=== PATIENT | female | born 1945 | race Caucasian/White ===

== ENCOUNTER 2018-06-15 09:09 | Outpatient (CLI) | payer OTHER, SELFPAY ==
[2018-06-15] VITALS (8 sets, daily range): BP systolic 112–148; BP diastolic 51–76; PULSE 52–74; RESP 16–22; TEMP 36.8; O2SAT 97–99
--- NOTE | 2018-06-15 09:11 | DI.RAD.S_ITS ---
PROCEDURE: PAIN SI JOINT INJECTION INDICATIONS: lumbar fusion with sacral dysfunction FINDINGS: Fluoroscopic spot filming was performed to verify placement of spinal needles of the SI joint as labeled on the films. Appropriate location(s) of the needle tip(s) was confirmed by injection of iodinated contrast. IMPRESSION: Fluoroscopy guidance for needle placement. Dictated by: Jess Michael M.D. on 06/15/2018 at 14:25 Approved by: Jess Michael M.D. on 06/15/2018 at 14:26
--- NOTE | 2018-06-15 10:39 | P.PCN_ITS ---
Procedures Date/Time Date of procedure: 06/15/18 Time of procedure: 10:39 General Procedure description: PREOP Dx: Sacroiliac joint pain/DJD POST OP DX: Sacroiliac Joint Pain/DJD Procedures: Fluoroscopic guided contrast controlled left sacroiliac joint injection Physician: Rip Ramsey D.O. Indications: Patient is referred by for treatment of left sacroiliac joint DJD Description of procedure Fluoroscopic guided, contrast controlled left sacroiliac joint injection Following denial of allergies and review of potential side effects and complications, including, but not necessarily limited to, infection, allergic reaction, local tissue breakdown, temporary as well as permanent nerve injury, paralysis, stroke and possible , the patient indicated that they understood and agreed to proceed. An informed consent was signed by the patient , witnessed by a nurse, and placed in the patient's chart. Additionally, other treatment options including modalities, medications, and physical therapy were reviewed with the patient. Per the patient request, IV conscious sedation was administered via 3mg of Versed to patient comfort. The patient's vital signs were monitored throughout the procedure by both the nurse and the position without significant fluctuation. The patient remained conversant throughout the procedure. In the prone position following sterile prep and drape of the pelvic region, the hyper lucency on in the inferior aspect of the left sacroiliac joint was identified fluoroscopically the skin was anesthetized be a 25 gauge 1 eventual with approximately 2 cc of 1% lidocaine solution. At this point, a 22 gauge 3 in spinal needle was atraumatically introduced and advanced under fluoroscopic guidance into the inferior aspect of the left sacroiliac joint. Following negative aspiration, approximately 0.3 cc of Isovue-300 was injected confirming intra-articular placement without vascular uptake. Radiographic data, including multiple fluoroscopic views of the pelvis, reveals a spinal needle in the left sacroiliac joint hyper loosen zone. Subsequent view show flow contrast tear superiorly and inferiorly within the joint capsule without vascular intrathecal uptake. At this point a total of 1 cc of 0.5% Marcaine was combined with 1 cc of 6 mg of betamethasone was injected without incident. The patient tolerated the procedure well without signs or symptoms of complications prior to transfer to the recovery area for further monitoring. The patient was then transferred to the recovery area and observed for an appropriate time after the injection. The patient reverted a vas score of 7 prior to the procedure and postprocedure vas of 1. Total fluoroscopy time: 22.7 sec Total conscious sedation time: 24 min Postop instructions The patient was provided with a pain like to continue to record the patient's response to the target specific procedure prior to the patient's follow-up visit with the referring physician. Additionally, specific post injection care instructions and a contact number to our office were provided if concerns arise regarding the possible complications associated with procedure are suspected. Rip Ramsey D.O. Complications: none
[2018-06-15] MEDS: IOPAMIDOL 15 ML VIAL 3 ML INJ (11:30)
[2018-06-15] MEDS: BUPIVACAINE 0.5% (PF) 30 ML VIAL INJ (11:30)
[2018-06-15] MEDS: BETAMETHASONE 30 MG/5 ML MDV 12 MG INJ (11:30)
[2018-06-15] MEDS: MIDAZOLAM 5 MG/5 ML VIAL IV (12:17)
== END 2018-06-15 12:05 | disposition home or self-care (01) ==
PROVIDERS: PCP Physician Assistant; Visit Provider Physical Medicine & Rehabilitation
DX: M48.061 Spinal stenosis, lumbar region without neurogenic claudication (principal); M51.36 Other intervertebral disc degeneration, lumbar region; M96.1 Postlaminectomy syndrome, not elsewhere classified
CPT/HCPCS: 27096; 99152; J0702; J2250

== ENCOUNTER 2019-09-28 05:50 | Inpatient (IN) | payer MEDICARE, OTHER, SELFPAY ==
[2019-09-14 09:27] VITALS: BMI 42.6
[2019-09-28] VITALS (18 sets, daily range): BP systolic 84–131; BP diastolic 44–73; PULSE 51–83; RESP 12–17; TEMP 36.1–37.1; O2SAT 91–100; BMI 43.8; BMI 44.1
--- NOTE | 2019-09-28 06:00 | DI.RAD.S_ITS ---
PROCEDURE: XR KNEE LT 1TO2V INDICATIONS: post op films TECHNIQUE: 2 views of the knee were acquired. COMPARISON: [facility] Vernancy Bailon, CR, XR KNEE ARTHRITIC SERIES LT, 03/02/2019, 13:14. [facility] [place], CR, XR KNEE ARTHRITIC SERIES LT, 01/14/2018, 13:36. FINDINGS: Bones: Interval placement of a left total knee arthroplasty with hardware in expected alignment. No periprosthetic fracture is identified. Well-corticated ossific fragments project along the medial aspect of the left medial femoral condyle, similar to comparison exam and consistent with degenerative change. Soft tissues: There is diffuse anterior left knee soft tissue edema and soft tissue emphysema with anterior knee surgical radha, consistent with postsurgical change. No radiopaque foreign bodies are identified. IMPRESSION: Interval placement of a left total knee arthroplasty in expected alignment and with adjacent soft tissue postsurgical changes. Dictated by: Kota Day M.D. on 09/28/2019 at 13:39 Approved by: Kota Day M.D. on 09/28/2019 at 13:43
--- NOTE | 2019-09-28 07:20 | PM.PREOP ---
Pre-operative Note Interval Note History & Physical reviewed/Exam performed by Physician: Yes Changes to H&P: No
[2019-09-28] MEDS: ACETAMINOPHEN 325 MG TABLET 975 MG PO ×3 (07:24→21:10)
[2019-09-28] MEDS: PREGABALIN 75 MG CAPSULE PO (07:24)
[2019-09-28] MEDS: LACTATED RINGERS 1,000 ML 42 ML IV (07:25)
--- NOTE | 2019-09-28 07:33 | PM.OP.1 ---
Operative Date/Time/Diagnoses Date of procedure: 09/28/19 Time of procedure: 09:58 Pre-op diagnosis: Severe left knee osteoarthritis Post-op diagnosis: same Procedure & Clinicians Procedure: Left total knee arthroplasty Same procedure as scheduled: Yes Indications: The patient presents today for total knee arthroplasty after failure of conservative treatment. The nature of the procedure including the risks and benefits, alternatives, postoperative course and expected outcome were discussed and all questions answered. Consent was obtained. Operative site confirmed and marked. Surgeon: Bill Rios Court Officer: Nils Telles Anesthesia Type: General, Spinal and Local Operative Notes Findings: The patient had severe knee osteoarthritis with severe varus alignment and a large number of osteophytes extending off the patella laterally. A +2 femoral cut was made. The anterior femoral cut was quite long with a slight notch. Full extension and excellent medial lateral balance throughout motion was obtained with routine medial varus knee releases and osteophyte removal. Patellar tracking was excellent. Closure Type: primary Specimen(s): none sent Prosthetic devices, grafts, tissues, transplants, or devices: Bright and Nephbrissa Wise BCS: [xx] femoral component, [xx] tibial component, [xx] mm BCS polyethylene tray and [xx] mm round patella Applied: implant(s) Estimated Blood Loss (mL): 10 Blood products transfused: none Tourniquet time (min): 74 Procedure in detail: The patient was taken to the operative suite and placed under general and spinal anesthesia. The patient was given prophylactic antibiotics prior to surgery. The patient was also given tranexamic acid, 1 g, just prior to surgery for postoperative hemostasis. The lateral knee was prepped and the joint injected with 20 mL of 1% Lidocaine with epinephrine. The knee was then prepped and draped in usual sterile fashion. The leg was exsanguinated with an Esmarch dressing and the tourniquet raised to 250 torr. A 15 cm anterior incision was made. Next a medial trivector arthrotomy was made. The extensor mechanism was marked to ensure accurate repair. Initial exposing dissection was carried out medially and laterally. The knee was then extended and the patellar thickness was measured and a cut made removing approximately 7-8 mm of bone. The patella was then sized and drilled. Some excess lateral bone was excised and the patellofemoral ligament released. The knee was then flexed and the intramedullary femoral guide yuli placed. The distal femoral cut was made in 6 ? of valgus at the +2 position. The femoral size was measured and the appropriate cutting block was then placed and the anterior, posterior and chamfer cuts made. The anterior femoral cut was very long with just a slight notch which was smoothed. The intramedullary tibial alignment yuli was then placed. The guide was set to remove approximately 10 mm from the less affected lateral side. The proximal tibial cut was then made with an oscillating saw. All meniscus and bony debris was then removed. Posterior femoral osteophytes removed with a curved osteotome. Flexion extension gaps were checked. No specific balancing was required other than routine exposure and removal of osteophytes for varus knee. The soft tissues were then injected with a combination of 20 mL of half percent Marcaine with epinephrine and 20 mL of Exparel. The trial components were then placed. The knee went into full extension and flexion beyond 120?. There was excellent medial-lateral balance throughout motion. Patellar tracking was excellent. The trial components were removed and the knee was cleansed with Pulsavac irrigation and dried. The final components were cemented with high viscosity vacuum mixed bone cement with antibiotics. The joint was filled with a dilute Betadine solution. The knee was held in extension and the patellar clamped until the cement was fully cured. The knee was then irrigated. The extensor mechanism was closed with 5 interrupted #1 Vicryl sutures and a running Quill suture at 90 degrees of flexion. The joint was then injected with a combination of 1 g of tranexamic acid and 20 mL of quarter percent Marcaine with epinephrine. The subcutaneous tissue was closed with 2 0 Vicryl. The skin was closed with radha and surgical adhesive. An Aquacel dressing and Jaswant wrap were then applied. The patient tolerated the procedure well and was returned to recovery room in good condition. Complications: none Post-operative Condition: stable Disposition: PACU Plan for aftercare: [facility] protocol for total knee arthroplasty. The patient will require discharge to residential facility from the hospital as she has no help at home.
[2019-09-28] MEDS: CLINDAMYCIN 600 MG/50 ML PIGGYBACK 50 MG IV (07:58)
[2019-09-28] MEDS: LIDOCAINE 1% W/EPI 20 ML INJ (08:20)
[2019-09-28] MEDS: TRANEXAMIC ACID 1,000 MG VIAL 1000 MG INJ (08:22)
--- NOTE | 2019-09-28 08:40 | SUR.OPER ---
Supine on padded OR bed. Pillow under head, arms secured on padded armboards <90 degree abduction. Safety belt across torso. Non-operative leg secured with tape over blanket over lower leg. Operative leg secured in DeMayo/Gregg positioner. Foam padded brace at thigh of operative leg.
[2019-09-28] MEDS: BUPIVACAINE 0.25% W/ EPI (PF) 20 ML, TRANEXAMIC ACID 1,000 MG, SODIUM CHLORIDE 0.9% 10 ML INJ (08:50)
[2019-09-28] MEDS: BUPIVACAINE 0.25% W/ EPI (PF) 40 ML, BUPIVACAINE LIPOSOME 266 MG, SODIUM CHLORIDE 0.9% ... INJ (08:50)
[2019-09-28] MEDS: SODIUM CHLORIDE IRRIG SOLUTION 250 ML, POVIDONE-IODINE SPONGE STICKS 1 APPLIC IRR (08:55)
--- NOTE | 2019-09-28 10:56 | SUR.PHASEI ---
Phase I post op note: Patient arrive to PACU at 1008 via inpatient bed. Sedated with oral airway in place. Respirations regular and unlabored. O2 sats 91-93% on RA. O2 @ 4L/PATROL CAPTAIN applied with good results. X ray taken at 1020 per orders. Patient arrousable at 1025 and oral airway discontinued. Respirations regular and unlabored and VSS. Denied any pain or discomfort. Dermatome level at L1. Tolerating PO ice chips without nausea. Dozes off intermittently. Easily arousable by voice. Telephone report called to IP Acute Care RN. Stable for transfer to floor care.
--- NOTE | 2019-09-28 11:33 | PC.NURSE ---
1115 Pt arrived to room 217 via bed from PACU. Pt A&Ox3. aquacel/ zully wrap to the L Knee. Pt LLE straight and on pillow. No bend in the knee for now per Ariana, PROMOTIONS INTERN./ orders. Spouse at bedside. Pt denies pain, able to move feet, pedal pulses palpable. VS wnl. 1135 Pt taking in jello & sips of water. IVF infusing now. Pt states she last voided at 0530 am. Pt states no feeling of need to void at this time.
[2019-09-28] MEDS: LACTATED RINGERS 1,000 ML 125 ML IV ×2 (11:49→21:20)
[2019-09-28] MEDS: ASPIRIN EC 81 MG TABLET PO ×2 (12:12→21:10)
[2019-09-28] MEDS: LOSARTAN 50 MG TABLET PO (12:12)
[2019-09-28] MEDS: CELECOXIB 100 MG CAPSULE PO ×2 (12:12→21:11)
[2019-09-28] MEDS: glipiZIDE 5 MG TABLET PO ×2 (12:13→21:11)
[2019-09-28] MEDS: PANTOPRAZOLE 20 MG TABLET PO (12:13)
--- NOTE | 2019-09-28 13:32 | PC.NURSE ---
Bladder scan was done at approximately 13:00. Primary RN followed PRN order for straight catheter. Using sterile technique patient was straight cath'd and there was 475ml of clear, yellow, odorless urine. Patient tolerated the procedure well with no complaints of pain or discomfort.
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
[2019-09-28] MEDS: hydroCHLOROthiazide 12.5 MG CAPSULE PO (14:49)
[2019-09-28] MEDS: ROPINIROLE 1 MG TABLET PO (14:49)
[2019-09-28] MEDS: OXYCODONE IR 5 MG TABLET PO (14:50)
[2019-09-28] MEDS: AMLODIPINE 5 MG TABLET PO (16:12)
[2019-09-28] MEDS: SIMVASTATIN 10 MG TABLET PO (17:04)
[2019-09-28] MEDS: CLINDAMYCIN 900 MG/50 ML PIGGYBACK 50 MG IV ×2 (17:04→23:41)
--- NOTE | 2019-09-28 18:13 | PC.NURSE ---
Addendum entered by Mary Ann Nava R.N. 09/28/19 22:24: Uneventful evening. Denies discomfort. Dsg DCI HS CBG = 85 Stable post op course. Call light w/in reach, bed alarm on for pt safety. Continue w/plan of care. Original Note: Pt watchign TV. Med earlier for discomfort w/ relief. AC CBG = 89, not insulin required. Dgs to Left knee Jaswant/aquacell CDI. Stable post op course. Call light w/in reach, bed alarm on for pt safety.
--- NOTE | 2019-09-28 18:47 | CM.DANOTE ---
Addendum entered by JOSR Muro 09/30/19 14:56: Correction: [facility] Merrill P# [phone] Original Note: DCP assessment: EMR Reviewed: Patient is a 74 yr old female who was admitted for Lt TKA preformed by Dr. Rios. Patients PCP is Dr. Joshua with [facility] in [facility], CM met with patient at the bedside and explained CM/RN role. Patient was alert and oriented x3 at time of CM visit. Patient is I at base line with all ADL's. DME: patient has a FWW and Cane. patients DPOA is son Emil [phone]. Patient lives with her who is disabled and is currently recovering from a surgery as well. Patient stated concerns with D/C home with no one who can help her with her recovery. Patient stated she wanted to go to SNF at D/C. Patient currently lives in [facility] near [facility]. Dr. Rios has recommended SNF (in H &P and in pre-op note) at discharge due to the fact that patient does not have anyone to help patient at home. Patient would like to go to a facility in [place] or [facility]. Patient stated her family can transport her to the facility in [place] at D/C. CM contacted [facility] at [phone] and left a message for them to review patient and sent Clinicals to their fax# [phone]. EMBER also contacted [facility] in [place] [phone] LM for them to review patient and sent Clinicals to their fax # [phone]. PASRR done. Physical therapy Evaluation pending. Insurance: 1st: Medicare 2nd: [employer] Plan: [facility]. Patient to be transported by family to facility at d/c. CM department to follow patient and follow up with SNF options to determine placement. CM will also F/U with patient to get name of family member planning on transporting patient to [facility]. Susan Bright RN. Discharge Planning/Care Management CM Discharge Assessment Start: 09/28/19 18:24 Freq: Status: Active Protocol: Document 09/28/19 18:38 HS (Rec: 09/28/19 18:47 HS [id number]) Discharge Planning Assessment Assigned Out And Out Cigar Maker Hand Susan Bright RN DPOA/Assigned Designee Name Emil Greenfield (Son) Contact Information [phone] Advance Directives? Yes Advance Directives on File No History Provided By Patient Has Patient been admitted in last 30 No days? Prior Living Arrangements House Household Members spouse Type of transporation used prior to Drives own vehicle admit Independent with ADL's Yes Is patient alert and oriented? Yes Caregiver for Another Yes: DME Already Rented / Owned Bath Bench,FWW / Walker,Cane Patient/Family Preference Assisted Facility Comment Patient lives in [facility] [place] [facility] Discharge Plan Assisted Facility Transportation Arrangement Patients family will be transporting her [facility] Referrals Initiated Assisted Additional Comment Contacted [facility] If patient plan is SNF: Has PASSR been No completed? Has Agency SNF been contacted Yes Comment [facility] Whiteboard Updated in Patient Room with Yes name and ext. # of Out And Out Cigar Maker Hand Review Status In Process Next Review Type Continued Stay Review Pre-Anesthesia Assessment Start: 09/14/19 09:27 Freq: Status: Active Protocol: Document 09/14/19 09:27 CAB (Rec: 09/14/19 10:50 CAB [id number]) Pre-Anesthesia Assessment Patient Also Known As (SATHYA Kidd Patient Information Reviewed Via Phone Assessment Assessment Completed With Patient Comment No labs/EKG available from surgeon at time of assessment Primary Care Provider Benito Seen Specialist in Last 12 Months Yes Specialist Seen Orthopedist Primary Language Estonian First Assistant Manager Required No Height 147.32 cm Weight 92.533 kg Body Mass Index (BMI) 42.6 Hearing Ability Normal Visual Assist Glasses Dentition Type Dental Implants Barriers to Learning None Other Aids No Hx Anesthesia Reactions Yes: PONV Hx Family Anesthesia Reaction No Hx Malignant Hyperthermia No Hx Blood Transfusions No Anesthesia Review Requested No Pharmacoepidemiologist Yes: Pt wants to go to a SNF in [facility] alcohol intake never Smoking Status Never smoker Substance Use Type does not use Pain Present Pain Reported Musculoskeletal Symptoms Abnormal Gait,Difficulty Walking,Joint Pain,Numbness, Tingling History of Falling (Recent or History of No ) Patient is completely paralyzed or No completely immobile Prosthesis or Orthotic Device Cane,Front Wheel Walker, Wheelchair Mental Status Oriented to own ability Is patient on oxygen? No Does patient have ARENAS/SOB No Hx Sleep Apnea No Currently Taking a Beta Dmitriy No Can You Climb a Flight of Stairs Without Yes SOB Hx Chest Pain No Hx SOB No Hx Syncope or Dizziness No Anti-Coagulant Therapy No Has a Mechanical Test Technician No Cardiac Testing No Hx Pacemaker/ICD No Pacemaker Rep Required? No Cardiac Clearance Received Not Applicable Diet Type At Home Regular dysphagia No Urinary Catheter Present No Hx Urinary Self Catheterization No Diabetes Yes HgbA1C 5.9 Date 08/27/19 Patient No Lactating No Hx Drug Resistant Organism No Presence of External or Internal Medical Yes: Bilat eye lens, lumbar/ Devices cervical, right knee Have you traveled outside the [facility] in the last 30 days? Marital Status Lives With spouse Prior Living Arrangements House Number of Floors (Floors) One Floor Does the Patient Have Assistance After No: just had shoulder Surgery surgery, unable to assist Patient Discharge Plan Description Assisted Facility/Rehab Comment Pt wants to go to a SNF in [facility] Feels Safe in Current Environment Yes Been Physically Hurt or Threatened By a No Person in Current Environment Do you have thoughts of harming yourself None or others? Are you currently considering suicide? No Do you have a plan to hurt yourself or No Plan others? Do You Have Any Spiritual Beliefs That No May Affect Your HC Choices? Do You Have Any Cultural Practices That No May Affect Your HC Choices? Who Can We Speak to About Patient's Care Family, friends Identifying Code for Release of Patient Declines to issue Information Health Care Proxy/Next of Kin Emil Montejoson) Health Care Proxy Emergency Contact Name Emil Montejoson) Emergency Contact Advance Directives? Yes Advance Directives on File No Requested Patient Bring Advanced Yes Directives DOS Power of Database Administrator Yes Power of Database Administrator Name Emil nina) Power of Database Administrator PAC Instructions Do not shave/clip surgical site,Durable medical equipment ,Medications to take/avoid, Nasal antibiotic,No ETOH/ petroleum product on skin DOS, NPO,Post-op transportation,Pre -op antibiotic,Sturdy shoes/ comfortable clothes,Do not bring valuables and remove jewelry
[2019-09-28] MEDS: ROPINIROLE 1 MG TABLET 2 MG PO (19:15)
[2019-09-28] MEDS: CITALOPRAM 20 MG TABLET 40 MG PO (21:11)
[2019-09-28] MEDS: OXYCODONE IR 5 MG TABLET 10 MG PO (23:42)
[2019-09-29] VITALS (10 sets, daily range): BP systolic 105–153; BP diastolic 40–72; PULSE 59–75; RESP 16–18; TEMP 36.6–37.4; O2SAT 91–95
[2019-09-29] MEDS: OXYCODONE IR 5 MG TABLET 10 MG PO ×4 (03:11→19:28)
--- NOTE | 2019-09-29 03:42 | PC.NURSE ---
Shift note: Received pt from evening shift. Pt is AxOx3 and can make needs known. VSS and on RA, lungs clear, HRR to auscultation. Aquacell with zully wrap to LLE, CDI, Pulse weak to palpation, cap refil <2 secs, pt reports limited sensation to extremity but was the same pre-op d/t nerve damage. Pt has had only 125ml urine output since faustin removal, LINOLEUM PRINTER took pt to toilet and had void of 50ml. Bladder scan estimated volume of 198ml which does not meet order threshold. Will continue to encourage pt to ambulate to void. Pt is a moderate fall risk, call light in reach, bed alarm on and functioning.
[2019-09-29 06:24] LABS: Hematocrit 29.6 % (36-46); Hemoglobin 10.2 g/dL (12.0-16.0)
[2019-09-29] MEDS: ACETAMINOPHEN 325 MG TABLET 975 MG PO ×3 (08:07→20:54)
[2019-09-29] MEDS: ASPIRIN EC 81 MG TABLET PO ×2 (08:07→20:55)
[2019-09-29] MEDS: glipiZIDE 5 MG TABLET PO ×2 (08:08→20:56)
[2019-09-29] MEDS: LOSARTAN 50 MG TABLET PO (08:09)
[2019-09-29] MEDS: AMLODIPINE 5 MG TABLET PO (08:09)
[2019-09-29] MEDS: PANTOPRAZOLE 20 MG TABLET PO (08:09)
[2019-09-29] MEDS: CELECOXIB 100 MG CAPSULE PO ×2 (08:11→20:55)
[2019-09-29] MEDS: hydroCHLOROthiazide 12.5 MG CAPSULE PO (08:11)
[2019-09-29] MEDS: SODIUM CHLORIDE 0.9% FLUSH 10 ML IV ×2 (08:12→20:56)
--- NOTE | 2019-09-29 09:40 | P.PN_ITS ---
Subjective Subjective Date Patient Seen: 09/29/19 Time Patient Seen: 09:40 Interval history: Post op day 1 s/p left total knee arthroplasty with Dr. Rios. Patient complains of significant pain starting last night (located in incision site, increased from 3/10 to 7/10). Pain is controlled on oxycodone 10, tylenol, celebrex. Patient states her current pain is 8/10. 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 Patient has trouble voiding ; 50 mL in A M, bladder scan 198 mL. Patient made poor progress with PT yesterday secondary to pain. Patient admits to loss of sensation below the knee in left leg, prior to surgery.Patient has no caregiver at home and plans on SNF with transport by family. Patient denies fever, chills, chest pain, shortness of breath, nausea, vomiting. Exam Vital Signs (past 8 hours): - 09/29/19 03:15 09/29/19 07:45 09/29/19 08:15 Temperature 98.6 F 99.3 F Pulse Rate 59 L 59 L Respiratory Rate 16 16 Blood Pressure 105/44 L 107/52 L 115/49 L Pulse Oximetry 91 92 Oxygen Delivery Method Room Air Oxygen Flow Rate 0 Narrative Exam Narrative: 74 year old female is lying comfortably in bed, in no apparent distress. A&Ox3. Dressing is CDI, zully wrap in place. SCDs in place. Sensory function grossly intact to light touch in LE b/l except below the knee on L LE. Patient actively plantar flex/dorsiflex LE bl. Dorsalis pedis 2+ bl. Capillary refill <2seconds LE bl. Calves warm, compressible, soft, nttp. Objective Labs Result Diagrams: 09/29/19 05:55 Labs: Laboratory Results - last 24 hr 09/29/19 05:55 Hgb 10.2 L Hct 29.6 L Assessment & Plan Post-op Postoperative Procedures: Procedures Operation Date: 09/28/19 07:45 Actual Procedures Side Surgeon p Total Knee Arthroplasty Left Bill Rios MD Postoperative status: urinary retention and marginal pain control Postoperative plan: routine post-op care and ambulate Postoperative plan narrative: s/p L TKA with urinary retention and marginal pain control Urinary retention - continue to monitor and prompt, bladder scan >400 ml = straight cath Pain control - continue current pain management, if next PT session goes poorly will change medication orders VTE prophylaxis - SCDs, asa 81 mg bid Weight bearing as tolerated on L LE Discharge to SNF likely, when criteria is met Time Spent With Patient Time with patient: less than 15 minutes Quality VTE Deep Vein Thrombosis/Pulmonary Embolism Present on Admission: No
[2019-09-29] MEDS: HYDROMORPHONE 2 MG TABLET PO (10:06)
--- NOTE | 2019-09-29 11:51 | CM.DPC ---
DCP SNF Planning: SW called [facility] in [place] and spoke with admissions who states they have not received the previous faxed clinicals and requests SW fax to her direct office at #[phone] and her admissions cell # [phone]. SW refaxed clinicals to review and discussed pt may be stable for d/c over the weekend and she had concerns they might not be able to accept admission over the weekend and will check with her DNS and also requested RN notes faxed to review. J[facility]IO CESAR [facility] [place] [phone] and confirmed they received clinicals and are currently reviewing and would like to know why pt had surg here in [facility] and if she has Ortho f/u set up there in [place]. SW met bedside with pt and spouse and explained role and updated on above and pt confirms that she had surgery here as she has previous experience with Dr. Mercedes and Blanca as they used to live in [place] and they really like [facility]. Pt has not set up Ortho f/u outside of [facility] but would be agreeable with Ortho f/u in [place] if possible or would be willing to come back here for follow up appointment if needed. JULIO CESAR called [facility] [place] back and provided update and [facility] will determine if they can help set pt up with Ortho f/u there near their facility and will continue to review. Plan: SW to follow closely for final review from [facility] and [facility] in [place] to determine if either can accept and confirm they can accept pt over the weekend if she is stable for discharge. PASRR previously completed. JOSR Alvarez
--- NOTE | 2019-09-29 12:43 | PT.IPTN ---
Addendum entered and electronically signed by Anabella Lang PTA 09/29/19 12:44: PT completed treatment at 1148 am, error time stamp, and up dated communication board with assist with transfers. Original Note: Current Diagnoses Bilateral primary osteoarthritis of knee (09/28/19) Surgery Performed Operation Date: 09/28/19 07:45 Actual Procedures p Total Knee Arthroplasty(Left) - Bill Rios MD Physical Therapy Treatment Note M2 PT-IP Current Condition Start: 09/28/19 15:55 Freq: NEEDED Status: Active Protocol: Document 09/28/19 14:22 AB (Rec: 09/28/19 16:15 AB [id number]) Physical Therapy Current Condition Current Condition Evaluation Date 09/28/19 Treatment Diagnosis s/o L TKA; difficulty in walking Onset Date 09/28/19 Weight Bearing Status Weight Bearing Status Weight Bear as Tolerated M3 PT-IP Subjective Start: 09/28/19 15:55 Freq: NEEDED Status: Active Protocol: Document 09/29/19 11:48 SP (Rec: 09/29/19 12:40 SP [id number]) Subjective Physical Therapy Visit Type Type Treatment Note Visit Start Time 11:19 Visit Stop Time 11:48 Total Visit Minutes 29 Number of ANGLE SHEARER Visits 1 Physical Therapy Visit Comments Patient Comments Pt agreeable to work with PT. Patient Goals Want to get up and possibly sit in chair. Therapy Pain Assessment Pain When Pain Assessed At Rest Pain Present Pain Present Pain Reported Location Left Knee Intensity 8 Scale Used Numeric (1 - 10) Pain Management Techniques Re-positioning,Timing of Activity with Medications M4 PT-IP Mobility and Gait Start: 09/28/19 15:55 Freq: NEEDED Status: Active Protocol: Document 09/29/19 11:48 SP (Rec: 09/29/19 12:40 SP [id number]) PT-Bed Mobility Assessment Rolling Type of Rolling Roll to Left Supine to Sit Supine to Sit Moderate Assistance,1 Person Assistance,Head of Bed Elevated,Bedrails Scooting Scooting to Edge of Bed Minimal Assistance PT-Transfer Assessment Sit to and From Stand Sit to and from Stand Maximum Assistance,1 Person Assistance,Use of Upper Extremities Equipment Transfer Assistive Device Gait Belt,Front Wheeled Walker Orthotic/Prosthetic Devices or Brace: No Transfers Transfer Destination Chair Transfer Technique Stand Step Pivot Transfer Ability Level of Assist Maximum Assistance,1 Person Assistance,Use of Upper Extremities Comments Mobility Comments Pt stated L leg has chronic numbness in LLE due to back problems. Pt was able to complete supine to sitting EOB with Mod support to right trunk, cued for hand placement with HOB elevated, Min A for scooting to EOB, Max A to stand from EOB using heavy WB through BUE on FWW. Pt was able to pivot 4 steps EOB to chair with Max A and Min cuing for BLE pivoting position and UE WB through fWW for completion. LLE little unsteady, cued for quad activation to decrease risk for buckling. Encouraged WB BUE through hands and not forearms on FWW with upright posture. Gait Assessment Gait Gait Assistance Required: Maximum Assistance,1 Person Assist Distance (Feet) 3 Able to Maintain Weight Bearing Status Yes During Gait Assistive Devices Assistive Device Front Wheeled Walker Orthotic/Prosthetic Devices or Brace: No Gait Deviations General Gait Pattern Antalgic,Decreased Stride Length,Decreased Feet Clearance,Flexed Trunk,Step-to Gait Factors Limiting Gait Function Factors Limiting Gait Function Decreased Activity Tolerance, Decreased Sensation,Decreased Strength,Limited Range of Motion,Pain,Poor Balance,Poor Safety Awareness Comments Gait Comments Decrease WB tolerance on LLE, heavy BUE WB on fWW bed to chair. PT-Balance Assessment Sitting Balance and Reactions Static Sitting Balance Ability Good Dynamic Sitting Balance Ability Good Standing Balance and Reactions Static Standing Balance Ability Poor Dynamic Standing Balance Ability Poor Device Used FWW M5 PT-IP Objective Assessments Start: 09/28/19 15:55 Freq: NEEDED Status: Active Protocol: Document 09/28/19 14:22 AB (Rec: 09/28/19 16:15 AB [id number]) Orientation Orientation/Cognition Level of Alertness Alert Orientation Name,Age,Place,Situation Safety Awareness Decreased Safety Awareness Memory Description No Deficits Noted Gross Range of Motion Lower Extremity ROM Impairments L knee flexion: ~ 60 deg Strength Lower Extremity Strength Assessment Left Impaired Knee 2+/5 Sensation Assessment Sensation Gross Sensation Left LE Impaired Light Touch Absent Proprioception (Position) Impaired Sensation Description Numbness Comments Sensation Comments pt stated that she has to look at her LLE to see where she has positioned it Muscle Tone Muscle Tone WNL Yes M6 PT-IP Treatment Start: 09/28/19 15:55 Freq: NEEDED Status: Active Protocol: Document 09/29/19 11:48 SP (Rec: 09/29/19 12:40 SP [id number]) Physical Therapy Treatment Exercises Exercises Ankle Pumps,Seated Knee Flexion/Extension Education Education Provided Precautions,Weight Bearing Status,Post-Op Packet,Safety M7 PT-IP Assessment and Plan Start: 09/28/19 15:55 Freq: NEEDED Status: Active Protocol: Document 09/29/19 11:48 SP (Rec: 09/29/19 12:40 SP [id number]) PT Summary Assessment and Plan Potential Rehabilitation Potential Good Status of Condition at Evaluation Evolving Summary Impairments Pain,ROM,Strength,Balance, Coordination,Sensation,Tone, Bed Mobility,Transfers,Gait, Activity Tolerance Assessment Summary pt requiring mod A with bed mobility and Max A x1 to ambulate with BUE heavy WB on FWW step to gait bed to chair. Pt was up in chair with call light next to her. On 1L O2, low to mid 90% sat during mobility. Pt did become nauseous once up in chair but improved post cues for breathing and water consumption. Pt will require SNF rehab to improve strength and mobility at this time. Goals Bed Mobility Goal Independent Transfer Goal Contact Guard Assistance,Front Wheeled Walker Gait Goal Contact Guard Assistance,Front Wheel Walker Gait Distance 75 Days to Meet Goals 5 Frequency of Treatment Frequency Of Treatment Twice a Day Treatment Plan Physical Therapy Treatment Plan Bed Mobility Training,Transfer Training,Gait Training, Therapeutic Exercise,Balance Retraining,Post Op Education, Discharge Planning,Hot or Cold Pack,Neuromuscular Re-ed, Coordination Retraining,Manual Therapy Other Recommendations and Next Treatment transfers, ambulation Focus Recommendations To Nursing Amount of Assist Needed 3 or More Person Assist Discharge Recommendations PT Discharge Recommendations SNF Rehab
--- NOTE | 2019-09-29 14:41 | PC.NURSE ---
Ortho: Decreased bp today and norvasc held, PA-C aware. O2 sats found to be low this am, 86-87% even when enc to deep breath, use of IS to 1000. O2 applied at 2LNC, PA-C aware. See new orders. RT notified as well about decreased O2 sat. Denies any pain when taking a deep breath. Not a smoker, no hx of lung disease. No redness or swelling of the lower legs is present. Did another trial of RA at lunch and pt found to drop to 85-86% again, increased to 88% with deep breaths and IS use. O2 was reapplied. Other issue is voiding. Doesn't always get up to the commode, instead will use the bedpan. Bladder scanned for 229 and 342mls. Discussed getting up to bsc to void as being the better option. Still doesn't meet criteria for a faustin yet. Pt verb understanding. ortho stacy no concerns, ppp, feet =/warm, brisk cap refill. Dressings intact. Pain in control at present. Cont w/poc.
--- NOTE | 2019-09-29 15:43 | CM.DPC ---
DCP Cont: [facility] at fax # [phone] as requested. Fax confirmation scanned in. Yolanda Jimenez, [facility]
[2019-09-29] MEDS: ROPINIROLE 1 MG TABLET PO (15:45)
[2019-09-29] MEDS: SIMVASTATIN 10 MG TABLET PO (16:11)
--- NOTE | 2019-09-29 16:46 | PT-IP ANOTE ---
Pt refused, she just transfer to BSC and then chair with RN. Will see in AM.
[2019-09-29] MEDS: ROPINIROLE 1 MG TABLET 2 MG PO (19:27)
[2019-09-29] MEDS: CITALOPRAM 20 MG TABLET 40 MG PO (20:55)
--- NOTE | 2019-09-29 21:12 | PC.NURSE ---
Addendum entered by Amara Samaniego R.N. 09/29/19 23:47: RN in agreement with student nurse documentation. Addendum entered by Amara Samaniego R.N. 09/29/19 22:05: Patient placed on continuous pulse ox. Original Note: Low oxygen intervention P: The student nurse and the nurse assisted the patient to the beside commode. Patient was assisted back to bed after voiding. Patient's oxygen saturation was at 84% while laying in a semi-fowlers position. I: The student nurse elevated the head of bed to high fowlers and instructed patient to use the incentive spirometer. E: Patient's oxygen saturation climbed to 94%. S: Patient was left with head of bed lowered to low semi fowlers, call light in hand, bed low and locked, and high fall risk precautions in place per protocol.
[2019-09-30] VITALS (8 sets, daily range): BP systolic 94–164; BP diastolic 50–73; PULSE 64–79; RESP 16–18; TEMP 36.8–37.1; O2SAT 94–99
[2019-09-30] MEDS: OXYCODONE IR 5 MG TABLET 10 MG PO ×4 (00:54→12:20)
--- NOTE | 2019-09-30 06:16 | PC.NURSE ---
Addendum entered by Ramon Christian R.N. 09/30/19 06:22: 0530: Pt awake and used bedpan. She is having pain in lt knee area and asking if she could have pain medication. Discussed with her the effect of the Oxycodone which was given last, and if it gave her good pain relief. She states that it worked very well. Oxycodone 10mg given at this time for 6/10 pain. Original Note: Nut Grinder Note: 0140: Received pt from Sherry Oshea RN. Pt awake,alert. She is concerned about symtoms she is having when urinating: burning sensation, and urinary frequency, and at times does not know she is urinating. Linen change, madai care given. Placed pt on bedpan to see if she could urinate: urine is clear shakeel, sent to lab pending orders from MD for UAC. Clean brief on. Assisted pt to reposition. Discussed with her the importance of SCDs, ankle waving, and using incentive spirometer. She spoke of going to SNF for rehab due to her not being able to assist her at home because of his shoulder surgery. Pt feeling more calm and attempting to go back to sleep.
[2019-09-30] MEDS: AMLODIPINE 5 MG TABLET PO (09:00)
[2019-09-30] MEDS: ACETAMINOPHEN 325 MG TABLET 975 MG PO ×3 (09:00→20:43)
[2019-09-30] MEDS: PANTOPRAZOLE 20 MG TABLET PO (09:00)
[2019-09-30] MEDS: ASPIRIN EC 81 MG TABLET PO ×2 (09:00→20:43)
[2019-09-30] MEDS: LOSARTAN 50 MG TABLET PO (09:00)
[2019-09-30] MEDS: glipiZIDE 5 MG TABLET PO ×2 (09:00→20:43)
[2019-09-30] MEDS: hydroCHLOROthiazide 12.5 MG CAPSULE PO (09:02)
[2019-09-30] MEDS: SODIUM CHLORIDE 0.9% FLUSH 10 ML IV ×2 (09:02→20:44)
[2019-09-30] MEDS: CELECOXIB 100 MG CAPSULE PO ×2 (09:02→20:44)
--- NOTE | 2019-09-30 10:43 | DI.US.S_ITS ---
PROCEDURE: US PERIPH VENOUS LOW EXTREM LT INDICATIONS: POST-OP PAIN TECHNIQUE: Real-time imaging, as well as color and pulse Doppler interrogation, were performed of the lower extremity deep veins from the inguinal ligament to the popliteal fossa. COMPARISON: None. FINDINGS: The common femoral, femoral and popliteal veins are normally compressible, and free of intraluminal thrombus. Color and pulse Doppler demonstrate normal phasic intraluminal flow. There is normal augmentation response to distal compression maneuver. IMPRESSION: No evidence of left lower extremity deep vein thrombosis. Dictated by: El Preston M.D. on 09/30/2019 at 12:42 Approved by: El Preston M.D. on 09/30/2019 at 12:42
--- NOTE | 2019-09-30 11:17 | P.PN_ITS ---
Subjective Subjective Date Patient Seen: 09/30/19 Time Patient Seen: 11:17 Interval history: post op day 2 s/p LTKA w Dr. Rios. No acute events overnight. Patient complains of pain in L knee with movement. Patient is ambulating poorly with PT. Pain is controlled with oxycodone 10mg and tylenol. Patient complains of pain with urination and urinary incontinence with movement. UA was ordered last night. Hx of UTI 30years ago, denies hx of urinary incontinence. Patient denies shortness of breath, coughing, chest pain, fever, chills, nausea, vomiting Exam Vital Signs (past 8 hours): - 09/30/19 05:00 09/30/19 08:00 09/30/19 08:32 Temperature 98.3 F 98.8 F Pulse Rate 68 78 70 Respiratory Rate 18 17 18 Blood Pressure 164/73 H 146/73 H Pulse Oximetry 99 95 94 Oxygen Delivery Method Nasal Cannula Oxygen Flow Rate 1.5 Narrative Exam Narrative: 74 year old female is lying comfortably in bed, with nasal canula, in no apparent distress. A&Ox3. Dressing is CDI w zully wrap. L calf ttp tense, positive halle's sign. Lungs CTA. Right calf warm, soft, nttp, compressib le. Patient able to actively dorsiflex/plantar flex. Dorsalis pedis 2+. Capillary refill <2seconds LE bl. Sensory function grossly intact to light touch in LE b/l except below the knee on L LE. Objective Labs Result Diagrams: 09/29/19 05:55 Assessment & Plan Post-op Postoperative Procedures: Procedures Operation Date: 09/28/19 07:45 Actual Procedures Side Surgeon p Total Knee Arthroplasty Left Bill Rios MD Postoperative plan narrative: L calf ttp, +homans sign - rule out DVT, ordered Doppler ultrasound Continue current pain control Ambulate with physical therapy Follow UA + Culture - treat as needed Considering slow progress with PT and no support at home, discharge to SNF likely pending medically stable and 3 nights met Time Spent With Patient Time with patient: less than 15 minutes Quality VTE Deep Vein Thrombosis/Pulmonary Embolism Present on Admission: No
--- NOTE | 2019-09-30 11:22 | PT.IPTN ---
Current Diagnoses Bilateral primary osteoarthritis of knee (09/28/19) Surgery Performed Operation Date: 09/28/19 07:45 Actual Procedures p Total Knee Arthroplasty(Left) - Bill Rios MD Physical Therapy Treatment Note M2 PT-IP Current Condition Start: 09/28/19 15:55 Freq: NEEDED Status: Active Protocol: Document 09/28/19 14:22 AB (Rec: 09/28/19 16:15 AB [id number]) Physical Therapy Current Condition Current Condition Evaluation Date 09/28/19 Treatment Diagnosis s/o L TKA; difficulty in walking Onset Date 09/28/19 Weight Bearing Status Weight Bearing Status Weight Bear as Tolerated M3 PT-IP Subjective Start: 09/28/19 15:55 Freq: NEEDED Status: Active Protocol: Document 09/30/19 11:30 GGD (Rec: 09/30/19 12:22 GGD [id number]) Subjective Physical Therapy Visit Type Type Treatment Note Visit Start Time 11:00 Visit Stop Time 11:30 Total Visit Minutes 30 Number of REPLANTING MACHINE CREW Visits 2 Physical Therapy Visit Comments Patient Comments Pt willing to work with therapy. Therapy Pain Assessment Pain When Pain Assessed At Rest Pain Present Pain Present Pain Reported Location Left Knee Intensity 4 Scale Used Numeric (1 - 10) M4 PT-IP Mobility and Gait Start: 09/28/19 15:55 Freq: NEEDED Status: Active Protocol: Document 09/30/19 11:30 GGD (Rec: 09/30/19 12:22 GGD [id number]) PT-Bed Mobility Assessment Supine to Sit Supine to Sit Minimal Assistance,1 Person Assistance,Head of Bed Elevated Scooting Scooting to Edge of Bed Contact Guard Assistance PT-Transfer Assessment Sit to and From Stand Sit to and from Stand Contact Guard Assistance,1 Person Assistance,Use of Upper Extremities Equipment Transfer Assistive Device Gait Belt,Front Wheeled Walker Orthotic/Prosthetic Devices or Brace: No Transfers Transfer Destination Chair Transfer Ability Level of Assist Minimal Assistance,1 Person Assistance,Use of Upper Extremities Gait Assessment Gait Gait Assistance Required: Contact Guard Assist,Minimum Assistance Distance (Feet) 6 Able to Maintain Weight Bearing Status Yes During Gait Assistive Devices Assistive Device Front Wheeled Walker Orthotic/Prosthetic Devices or Brace: No Factors Limiting Gait Function Factors Limiting Gait Function Decreased Activity Tolerance, Decreased Sensation,Decreased Strength,Limited Range of Motion,Pain,Poor Balance,Poor Safety Awareness M5 PT-IP Objective Assessments Start: 09/28/19 15:55 Freq: NEEDED Status: Active Protocol: Document 09/28/19 14:22 AB (Rec: 09/28/19 16:15 AB [id number]) Orientation Orientation/Cognition Level of Alertness Alert Orientation Name,Age,Place,Situation Safety Awareness Decreased Safety Awareness Memory Description No Deficits Noted Gross Range of Motion Lower Extremity ROM Impairments L knee flexion: ~ 60 deg Strength Lower Extremity Strength Assessment Left Impaired Knee 2+/5 Sensation Assessment Sensation Gross Sensation Left LE Impaired Light Touch Absent Proprioception (Position) Impaired Sensation Description Numbness Comments Sensation Comments pt stated that she has to look at her LLE to see where she has positioned it Muscle Tone Muscle Tone WNL Yes M6 PT-IP Treatment Start: 09/28/19 15:55 Freq: NEEDED Status: Active Protocol: Document 09/30/19 11:30 GGD (Rec: 09/30/19 12:22 GGD [id number]) Physical Therapy Treatment Exercises Exercises Ankle Pumps,Quad Sets,Heel Slides,Straight Leg Raises, Seated Knee Flexion/Extension Education Education Provided Precautions,Safety M7 PT-IP Assessment and Plan Start: 09/28/19 15:55 Freq: NEEDED Status: Active Protocol: Document 09/30/19 11:30 GGD (Rec: 09/30/19 12:22 GGD [id number]) PT Summary Assessment and Plan Summary Assessment Summary Pt improving with mobility. She needed less assistance with bed mobility and sit <> stand. She was able to progress gait distance with mod cues. Pt will benefit from SNF to improve functional mobility. Frequency of Treatment Frequency Of Treatment Twice a Day Treatment Plan Physical Therapy Treatment Plan Bed Mobility Training,Transfer Training,Gait Training, Therapeutic Exercise,Balance Retraining,Post Op Education, Discharge Planning,Hot or Cold Pack,Neuromuscular Re-ed, Coordination Retraining,Manual Therapy Recommendations To Nursing Amount of Assist Needed 2 Person Assist Discharge Recommendations PT Discharge Recommendations SNF Rehab
[2019-09-30 11:48] LABS: Bacteria Urine None Seen; RBC Urine None Seen (0-5/HPF)
[2019-09-30 11:51] LABS: Appearance Urine UA CLEAR; Bilirubin Urine UA NEGATIVE (NEGATIVE); Color Urine UA YELLOW; Glucose Urine UA NEGATIVE (Negative); Ketones Urine UA NEGATIVE (NEGATIVE); Leukocyte Esterase Urine UA NEGATIVE (NEGATIVE); Nitrite Urine UA NEGATIVE (Negative); Occult Blood Urine UA NEGATIVE (Negative); Protein Urine UA NEGATIVE (Negative); Specific Gravity Urine UA <=1.005 (1.000-1.035); Urobilinogen Urine UA 0.2 E.U./dL (0.2)
[2019-09-30 12:04] LABS: Culture Indicated Urine Cult Not Indicated; Squamous Epithelial Cell Urine 0-1 /HPF (0-5/HPF); WBC Urine 0-1/HPF (0-5/HPF)
--- NOTE | 2019-09-30 12:31 | PC.NURSE ---
Ortho: Pt reports she is doing better today. having better pain control. Has not needed any dilaudid. UA obtained and sent for urinary urgency and freq. UA was neg and pt given results. She thinks her irritation maybe from when she was straight cathed a couple of days ago. O2 sats better but remain on the lower side, was able to titrate O2 down to 1.5L with sats 92-94%. PA-C aware of same. See orders. No pain with deep breathing and pt is using her IS better today, got to 1250 w/better breath control. Has been up with PT and she feels she is improving in this area as well. Had better leg control and was able to amb a short distance. 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 Pt overall feels her day has been much better then yesterday. No bp issues and did get all of her meds. Has been sitting in the chair for several hours. Cont w/poc.
--- NOTE | 2019-09-30 15:02 | PT.IPTN ---
Current Diagnoses Bilateral primary osteoarthritis of knee (09/28/19) Surgery Performed Operation Date: 09/28/19 07:45 Actual Procedures p Total Knee Arthroplasty(Left) - Bill Rios MD Physical Therapy Treatment Note M2 PT-IP Current Condition Start: 09/28/19 15:55 Freq: NEEDED Status: Active Protocol: Document 09/28/19 14:22 AB (Rec: 09/28/19 16:15 AB [id number]) Physical Therapy Current Condition Current Condition Evaluation Date 09/28/19 Treatment Diagnosis s/o L TKA; difficulty in walking Onset Date 09/28/19 Weight Bearing Status Weight Bearing Status Weight Bear as Tolerated M3 PT-IP Subjective Start: 09/28/19 15:55 Freq: NEEDED Status: Active Protocol: Document 09/30/19 14:49 SUNDAR (Rec: 09/30/19 15:00 SUNDAR [id number]) Subjective Physical Therapy Visit Type Type Treatment Note Visit Start Time 02:05 Visit Stop Time 02:45 Total Visit Minutes 40 Notes Treatment supervised by KATE Jacobs. Number of CS ASSOCIATE Visits 3 Physical Therapy Visit Comments Patient Comments Pt willing to attempt walking. Patient Goals Dum[place] teeth and wash face. Therapy Pain Assessment Pain When Pain Assessed During Mobility Pain Present Pain Present Pain Reported Location Left Knee Pain Management Techniques Modification of Treatment M4 PT-IP Mobility and Gait Start: 09/28/19 15:55 Freq: NEEDED Status: Active Protocol: Document 09/30/19 14:49 SUNDAR (Rec: 09/30/19 15:00 SUNDAR [id number]) PT-Transfer Assessment Sit to and From Stand Sit to and from Stand Contact Guard Assistance,1 Person Assistance,Use of Upper Extremities Equipment Transfer Assistive Device Gait Belt,Front Wheeled Walker Orthotic/Prosthetic Devices or Brace: No Transfers Transfer Destination Chair,Bedside Commode Transfer Technique Stand Step Pivot Comments Mobility Comments Patient has increased pain with mobility, but is able to tolerate LE exercises and weight bearing. RN inform of BSC care needed and brief changed. Gait Assessment Gait Gait Assistance Required: Contact Guard Assist,Minimum Assistance Distance (Feet) 45 Able to Maintain Weight Bearing Status Yes During Gait Assistive Devices Assistive Device Front Wheeled Walker Orthotic/Prosthetic Devices or Brace: No Gait Deviations General Gait Pattern Antalgic,Decreased Stride Length,Decreased Feet Clearance,Flexed Trunk,Step-to Gait Factors Limiting Gait Function Factors Limiting Gait Function Decreased Activity Tolerance, Decreased Sensation,Decreased Strength,Limited Range of Motion,Pain,Poor Balance,Poor Safety Awareness Comments Gait Comments Ambulation 3x15 ft with seated rest breaks inbetween. O2 sats at rest 96% on 1.5 L. with activity 88-91% on 1.5 L. Pt in chair with all needs in reach. M5 PT-IP Objective Assessments Start: 09/28/19 15:55 Freq: NEEDED Status: Active Protocol: Document 09/28/19 14:22 AB (Rec: 09/28/19 16:15 AB [id number]) Orientation Orientation/Cognition Level of Alertness Alert Orientation Name,Age,Place,Situation Safety Awareness Decreased Safety Awareness Memory Description No Deficits Noted Gross Range of Motion Lower Extremity ROM Impairments L knee flexion: ~ 60 deg Strength Lower Extremity Strength Assessment Left Impaired Knee 2+/5 Sensation Assessment Sensation Gross Sensation Left LE Impaired Light Touch Absent Proprioception (Position) Impaired Sensation Description Numbness Comments Sensation Comments pt stated that she has to look at her LLE to see where she has positioned it Muscle Tone Muscle Tone WNL Yes M6 PT-IP Treatment Start: 09/28/19 15:55 Freq: NEEDED Status: Active Protocol: Document 09/30/19 14:49 SUNDAR (Rec: 09/30/19 15:00 SUNDAR [id number]) Physical Therapy Treatment Exercises Exercises Ankle Pumps,Quad Sets,Seated Knee Flexion/Extension Education Education Provided Safety Other Treatments Other Treatment Performed standing at sink for 4 min with CGA for balance during self care. M7 PT-IP Assessment and Plan Start: 09/28/19 15:55 Freq: NEEDED Status: Active Protocol: Document 09/30/19 14:49 SUNDAR (Rec: 09/30/19 15:00 SUNDAR [id number]) PT Summary Assessment and Plan Summary Assessment Summary Pt was motivated to walk further distance this afternoon. Required cues for correct usage of FWW while transferring sit<>stand. Able to tolerate 4 min of standing while performing self care. Frequency of Treatment Frequency Of Treatment Twice a Day Recommendations To Nursing Amount of Assist Needed 1 Person Assist Discharge Recommendations PT Discharge Recommendations SNF Rehab
[2019-09-30] MEDS: SIMVASTATIN 10 MG TABLET PO (16:16)
[2019-09-30] MEDS: ROPINIROLE 1 MG TABLET PO (16:16)
[2019-09-30] MEDS: ROPINIROLE 1 MG TABLET 2 MG PO (19:02)
[2019-09-30] MEDS: CITALOPRAM 20 MG TABLET 40 MG PO (20:43)
[2019-10-01 00:23] VITALS: BP 100/43; PULSE 62; RESP 16; TEMP 36.9; O2SAT 94
[2019-10-01] MEDS: OXYCODONE IR 5 MG TABLET 10 MG PO ×3 (02:53→10:58)
[2019-10-01 03:00] VITALS: BP 167/78; PULSE 80; RESP 18; TEMP 37.4; O2SAT 94
--- NOTE | 2019-10-01 04:19 | PC.NURSE ---
Pt on O2 1.5 liters at 94%., pt pain level is 4/10. Pt CMS intact, dressing clean/dry/intact, zully wrap. Pt VSS, lung sounds clear. Pt encouraged to use IS. Call light is within reach.
[2019-10-01 08:00] VITALS: BP 110/56; PULSE 66; RESP 16; TEMP 36.8; O2SAT 93
--- NOTE | 2019-10-01 08:41 | PM.DS.1 ---
History of Present Illness History of Present Illness Date Patient Seen: 10/01/19 Time Patient Seen: 08:41 Chief complaint: [id number] Left TKA Narrative: Patient's pain is [id number]. Denies fever chills. No nausea vomiting. Patient lives in [place]. She has intend for her left total knee arthroplasty. Her recently had shoulder surgery in is an able to assist her at home. Physical therapy has recommended senior care facility. Discharge Providers Provider Date of admission: 09/28/19 05:50 Discharge Date: 10/01/19 Consults: 09/28/19 11:29 Consult to Discharge Planning Routine Comment: Consult to Physical Therapy Evaluate & Treat Comment: Physician Instructions: postop TKA protocol Consult to Respiratory Therapy Evaluate & Treat Comment: Physician Instructions: Evaluate and treat 09/29/19 11:46 Consult to Respiratory Therapy Evaluate & Treat Comment: as per nurse, sp02 low 80s on room air Physician Instructions: Evaluate and treat Discharge provider: Nils Telles PA-C Summary Hospital Course Discharge Diagnosis: Post left total knee arthroplasty secondary to severe left knee osteoarthritis Hospital Course: [place] [address] Operative Note Patient: Dipika Greenfield [facility]#: [id number] : 5Acct:[id number] Age/Sex: 74 / F Date of Service: 09/28/19 Provider: Bill Rios MD Operative Date/Time/Diagnoses Date of procedure: 09/28/19 Time of procedure: 09:58 Pre-op diagnosis: Severe left knee osteoarthritis Post-op diagnosis: same Procedure & Clinicians Procedure: Left total knee arthroplasty Same procedure as scheduled: Yes Indications: The patient presents today for total knee arthroplasty after failure of conservative treatment. The nature of the procedure including the risks and benefits, alternatives, postoperative course and expected outcome were discussed and all questions answered. Consent was obtained. Operative site confirmed and marked. Surgeon: Bill Rios Photography Professor: Nils Telles Anesthesia Type: General, Spinal and Local Operative Notes Findings: The patient had severe knee osteoarthritis with severe varus alignment and a large number of osteophytes extending off the patella laterally. A +2 femoral cut was made. The anterior femoral cut was quite long with a slight notch. Full extension and excellent medial lateral balance throughout motion was obtained with routine medial varus knee releases and osteophyte removal. Patellar tracking was excellent. Closure Type: primary Specimen(s): none sent Prosthetic devices, grafts, tissues, transplants, or devices: Bright and Nephbrissa Wise BCS: [xx] femoral component, [xx] tibial component, [xx] mm BCS polyethylene tray and [xx] mm round patella Applied: implant(s) Estimated Blood Loss (mL): 10 Blood products transfused: none Tourniquet time (min): 74 Patient admitted to the hospital for left total knee arthroplasty. Patient consented to the same. Patient taken to the operating room underwent left total knee arthroplasty. Patient back in her room recovering well as in stable condition. Patient lives out of town and her is unable to assist her at home. Patient has been slow to mobilize and physical therapy has recommended senior care facility. Patient will be discharged to senior care facility today. Exam Vital Signs (past 8 hours): - 10/01/19 03:00 Temperature 99.3 F Pulse Rate 80 Respiratory Rate 18 Blood Pressure 167/78 H Pulse Oximetry 94 Oxygen Delivery Method Nasal Cannula Oxygen Flow Rate 1.5 Narrative Exam Narrative: Pleasant 74-year-old female in no apparent distress. Patient resting comfortably in bed. Left knee dressing is clean, dry and intact. Motor functions intact distally. Sensation grossly intact to light touch. Both legs are warm and dry. Objective Labs Result Diagrams: 09/29/19 05:55 Labs: Laboratory Results - last 24 hr 09/30/19 06:02 Urine Color Yellow Urine Appearance Clear Urine pH 5.0 Ur Specific [place] <=1.005 Urine Protein Negative Urine Glucose (UA) Negative Urine Ketones Negative Urine Occult Blood Negative Urine Nitrate Negative Urine Bilirubin Negative Urine Urobilinogen 0.2 Ur Leukocyte Esterase Negative Urine RBC None seen Urine WBC 0-1/hpf Ur Squamous Epith Cells 0-1 /hpf Urine Bacteria None seen Ur Culture Indicated? Cult not indicated Discharge Plan Discharge Plan Patient Disposition: SNF Transfer to: [facility] Consult as needed: Dental, Mental health, Podiatry and Vision Discharge comment: DC to SNF today Discharge Med Rec/Prescriptions Prescriptions: New acetaminophen 325 mg Tablet 975 mg PO TID Qty: 90 RF: 0 aspirin 81 mg Tablet,Delayed Release (Dr/Ec) 81 mg PO BID Qty: 60 RF: 0 oxycodone 5 mg Tablet 5 mg PO Q3HR PRN (Reason: Pain, Moderate (4-6)) Qty: 60 RF: 0 Continued celecoxib [Celebrex] 100 mg Capsule 100 mg PO BID RF: 0 PreserVision AREDS-2 [id number] [id number]-mg Capsule 1 tab PO BID RF: 0 ropinirole 1 mg Tablet 1 mg PO TID RF: 0 omeprazole 20 mg capsule,delayed release(DR/EC) 20 mg PO DAILY RF: 0 simvastatin 10 mg tablet 10 mg PO QPM RF: 0 losartan-hydrochlorothiazide 50-12.5 mg tablet 1 tab PO DAILY RF: 0 amlodipine 5 mg tablet 5 mg PO DAILY RF: 0 citalopram 20 mg tablet 40 mg PO BEDTIME RF: 0 glipizide 10 mg tablet 5 mg PO BID RF: 0 Follow up/Referrals: Bill Rios MD [Physician] - (1 wk) Discharge Health Status Brief summary of current health status: Stable status post left TKA Multidrug resistant organism: No MDRO Provider Discharge Instructions Diet: Carb-consistent/Diabetic Liquid consistency: Normal/Thin Food texture: Regular Activity: WBAT Cold/Heat Therapy: ice left knee as needed Skin/Wound/Dressing Care Report to your healthcare provider any signs of infection, such as:: chills, fever, increased pain, unusual drainage and unusual redness Dressing: keep clean and dry [facility] Reason for rehabilitation: Post-operative therapy Rehab type: Physical therapy and Occupational therapy Visit Report/Discharge Packet Instructions: DI for Knee Replacement, DI for Constipation, How to Prevent Falls Quality VTE Deep Vein Thrombosis/Pulmonary Embolism Present on Admission: No
[2019-10-01 09:54] VITALS: BP 110/50
[2019-10-01] MEDS: ASPIRIN EC 81 MG TABLET PO (09:54)
[2019-10-01] MEDS: ACETAMINOPHEN 325 MG TABLET 975 MG PO (09:54)
[2019-10-01] MEDS: AMLODIPINE 5 MG TABLET PO (09:54)
[2019-10-01] MEDS: CELECOXIB 100 MG CAPSULE PO (09:54)
[2019-10-01] MEDS: glipiZIDE 5 MG TABLET PO (09:54)
[2019-10-01] MEDS: PANTOPRAZOLE 20 MG TABLET PO (09:54)
[2019-10-01] MEDS: LOSARTAN 50 MG TABLET PO (09:54)
[2019-10-01] MEDS: hydroCHLOROthiazide 12.5 MG CAPSULE PO (09:54)
--- NOTE | 2019-10-01 10:48 | PC.NURSE ---
Pt IV has been removed and she is ready for discharge to [facility] via w/c. Called report to Joseph YADAV at [facility] and gave full Pt report. Joseph denied further questions and said they would be here to pickup patient at 1100 as scheduled.
--- NOTE | 2019-10-01 11:12 | PC.NURSE ---
Pt out via w/c by [facility] personnel with all belongings.
--- NOTE | 2019-10-02 08:25 | CM.DPNOTE ---
DC Note/Late Entry: Pt DC 10.01.19 to [facility] via w/c. Faxed completed and signed med list, DC Summary, Rx, PASRR and other DC ppk to [facility]. Provided RN Zari w/Rn to RN number for report and alerted pt, RN to p/u time of 1100, all aware and agreeable to DCP. IMM reviewed and verbal obtained yesterday morning. Thursday09.30.19: Placed call to [facility] listed in prior notes and neither could accommodate pt over the weekend. Discussed w/pt and she was quite happy to stay in [facility] for rehab and to attend her Ortho f/u. Placed call to April at [facility], gave referral and pt accepted for Thursday10.01.19. PASRR had already been completed by Susan Bright RN. JW
== END 2019-10-01 11:13 | DRG 470 ==
PROVIDERS: Admitting Provider Orthopaedic Surgery; Visit Provider Orthopaedic Surgery
PROC: 0SRD0JZ Replacement of Left Knee Joint with Synthetic Substitute, Open Approach (ICD-10-PCS; CPT 27447; principal; 2019-09-28 07:45)
DX: M17.12 Unilateral primary osteoarthritis, left knee (principal); Z68.42 Body mass index [BMI] 45.0-49.9, adult; E66.9 Obesity, unspecified; E11.9 Type 2 diabetes mellitus without complications; J45.909 Unspecified asthma, uncomplicated; Z96.651 Presence of right artificial knee joint; M41.26 Other idiopathic scoliosis, lumbar region; M51.36 Other intervertebral disc degeneration, lumbar region; M25.762 Osteophyte, left knee; R33.9 Retention of urine, unspecified; Z79.84 Long term (current) use of oral hypoglycemic drugs
CPT/HCPCS: 36415; 73560; 81001; 82962; 85014; 85018; 93971; 97116; 97162; 97530; C1776; C9290; J2250; J2274; J2405; J2704; J2765; J3010

== ENCOUNTER → 2019-10-04 13:29 | Outpatient (ROUT) | payer SELFPAY ==
[2019-09-28 12:24] VITALS: BMI 44.1
[2019-10-04 13:53] LABS: Erythrocyte Sedimentation Rate > 140 MM/HR (0-20)
[2019-10-04 14:25] LABS: Blood Urea Nitrogen 39 mg/dL (7-17)
== END ==
PROVIDERS: Visit Provider Licensed Practical Nurse
DX: E11.9 Type 2 diabetes mellitus without complications (principal); Z47.1 Aftercare following joint replacement surgery
CPT/HCPCS: 82565; 84520; 85651; 87077; 87086; 87186

== ENCOUNTER 2019-10-05 12:46 | Emergency (ER) | payer MEDICARE, OTHER, SELFPAY ==
[2019-09-28 12:24] VITALS: BMI 44.1
[2019-10-05 12:54] VITALS: BP 168/60; PULSE 61; RESP 18; TEMP 37.1; O2SAT 96
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
[2019-10-05 13:09] VITALS: PULSE 64
[2019-10-05 13:29] LABS: Add Manual Diff / Slide Review NO; Basophils Absolute Auto 0 /uL (0-100); Basophils Percent Auto 0.4 % (0-2); Eosinophils Absolute Auto 300 /uL (0-450); Eosinophils Percent Auto 4.2 % (2-4); Hemoglobin 10.2 g/dL (12.0-16.0); Lymphocytes Absolute Auto 1000 /uL (1100-4500); Lymphocytes Percent Auto 15.4 % (25-40); Mean Corpuscular Hemoglobin 30.4 PG (26-34); Mean Corpuscular Volume 89.4 fL (80-100); Monocytes Absolute Auto 800 /uL (0-900); Monocytes Percent Auto 12.2 % (3-14); Neutrophils Absolute Auto 4400 /uL (1500-7000); Neutrophils Percent Auto 67.8 % (50-75); Platelet Count 270 X10^3/uL (150-400); Red Blood Cell Count 3.36 X10^6/uL (4.0-5.2); Red Cell Distribution Width 13.3 % (11.6-14.8); White Blood Cell Count 6.6 X10^3/uL (4.5-11.0)
--- NOTE | 2019-10-05 13:31 | DI.US.S_ITS ---
PROCEDURE: US PERIP VENOUS LOW EXTREM LT INDICATIONS: SWELLING LEFT LEG, S/P KNEE SURGERY 09/28 TECHNIQUE: Real-time imaging, as well as color and pulse Doppler interrogation, were performed of the lower extremity deep veins from the inguinal ligament to the popliteal fossa. COMPARISON: [facility], , [facility] VENOUS LOW EXTREM LT, 09/30/2019, 13:04. FINDINGS: The common femoral, femoral and popliteal veins are normally compressible, and free of intraluminal thrombus. Color and pulse Doppler demonstrate normal phasic intraluminal flow. There is normal augmentation response to distal compression maneuver. IMPRESSION: No deep venous thrombosis in the left lower extremity. Dictated by: Jess Michael M.D. on 10/05/2019 at 14:28 Approved by: Jess Michael M.D. on 10/05/2019 at 14:33
[2019-10-05 13:38] VITALS: BP 138/62
[2019-10-05 13:40] LABS: BUN Creatinine Ratio 29.2 (6-22); Blood Urea Nitrogen 35 mg/dL (7-17); Calcium 9.7 mg/dL (8.4-10.2); Carbon Dioxide 29 mmol/L (22-32); Chloride 102 mmol/L (98-107); Estimated Glomerular Filt Rate 43.9 mL/min (>60); Glucose 83 mg/dL (80-110); HEMOLYSIS < 15 (0-50); Sodium 139 mmol/L (137-145)
[2019-10-05 13:41] LABS: Potassium 5.5 mmol/L (3.4-5.1)
[2019-10-05] MEDS: SODIUM CHLORIDE 0.9% 1,000 ML 1000 ML IV (14:16)
[2019-10-05 15:09] VITALS: BP 175/75; PULSE 74; RESP 14; O2SAT 95
[2019-10-05] MEDS: ROPINIROLE 1 MG TABLET PO (15:14)
[2019-10-05] MEDS: ACETAMINOPHEN 325 MG TABLET 975 MG PO (15:20)
[2019-10-05 15:39] LABS: Carbon Dioxide 28 mmol/L (22-32); Chloride 103 mmol/L (98-107); HEMOLYSIS < 15 (0-50); Potassium 4.7 mmol/L (3.4-5.1); Sodium 140 mmol/L (137-145)
[2019-10-05 16:20] VITALS: BP 186/62; PULSE 70; RESP 18
== END 2019-10-05 16:35 | disposition home or self-care (01) ==
PROVIDERS: Emergency Provider Emergency Medicine; PCP Orthopaedic Surgery
DX: Z98.890 Other specified postprocedural states (principal); M25.562 Pain in left knee
CPT/HCPCS: 36415; 73562; 80048; 80051; 85025; 93971; 96360; 99283; 99284

== ENCOUNTER 2019-10-14 10:39 | Inpatient (IN) | payer MEDICARE, OTHER, SELFPAY ==
[2019-09-28 12:24] VITALS: BMI 44.1
[2019-10-12 12:44] VITALS: BMI 42.6
[2019-10-14] VITALS (19 sets, daily range): BP systolic 111–139; BP diastolic 42–63; PULSE 51–61; RESP 12–19; TEMP 35.8–36.9; O2SAT 91–99; BMI 40.8; BMI 39.4
--- NOTE | 2019-10-14 09:41 | DI.RAD.S_ITS ---
PROCEDURE: XR FEMUR LT MIN 2V INDICATIONS: post op films TECHNIQUE: 4 intraoperative fluoroscopic spot images views of the femur were acquired. COMPARISON: None. FINDINGS: Femoral yuli fixes a distal femur fracture. Knee arthroplasty components are also seen. Near-anatomic alignment of the distal femur fracture fragments. Expected overlying soft tissue changes. IMPRESSION: Expected appearance of intramedullary femoral yuli placement through distal femur fracture. Dictated by: Ca Espinoza M.D. on 10/14/2019 at 18:10 Approved by: Ca Espinoza M.D. on 10/14/2019 at 18:11
[2019-10-14] MEDS: PREGABALIN 75 MG CAPSULE PO (12:07)
[2019-10-14] MEDS: CELECOXIB 200 MG CAPSULE PO (12:07)
[2019-10-14] MEDS: LACTATED RINGERS 1,000 ML 42 ML IV ×2 (12:09→15:45)
--- NOTE | 2019-10-14 12:09 | PM.PREOP ---
Pre-operative Note Interval Note History & Physical reviewed/Exam performed by Physician: Yes Changes to H&P: No
--- NOTE | 2019-10-14 12:10 | PM.OP.1 ---
Operative Date/Time/Diagnoses Date of procedure: 10/14/19 Time of procedure: 16:44 Pre-op diagnosis: Supracondylar femur fracture above left total knee Post-op diagnosis: same Procedure & Clinicians Procedure: Retrograde femoral nail left leg Replacement of polyethylene spacer left total knee Same procedure as scheduled: Yes Indications: The patient presents today for repair of supracondylar femur fracture above total knee arthroplasty. The patient is a little over 2 weeks status post knee replacement. One week ago she took a long step and felt pain in her leg. The pain became more severe. X-rays ventrally showed an incomplete fracture above the total knee arthroplasty. She now presents for repair of the fracture with an intramedullary nail. The nature of the procedure including the risks and benefits, alternatives, postoperative course and expected outcome were discussed and all questions answered. Consent was obtained. Operative site confirmed and marked. Surgeon: Bill Rios Supply Chain Specialist: Cathi Anderson Anesthesia Type: General, Peripheral nerve block and Local Operative Notes Closure Type: primary Specimen(s): none sent Prosthetic devices, grafts, tissues, transplants, or devices: [employer] retrograde femoral nail 10 mm x 32 cm. Applied: implant(s) Estimated Blood Loss (mL): 100 Blood products transfused: none Procedure in detail: The patient was given prophylactic antibiotics prior to surgery. She was then given a femoral nerve block by Anesthesia. She was then taken to the operative suite placed under general anesthesia in supine position. The leg was then prepped and draped usual sterile fashion. The previous total knee incision was opened along with the medial patellar arthrotomy. The knee was copiously irrigated both in the the subcutaneous tissue and then deep to remove any hematoma. The wound was well healed with no evidence of infection. The polyethylene tray was removed and a CR trial component placed to protect the tibia. The femoral canal was opened and a guidewire placed. Sequential reaming was then carried out to 11.5 mm. A 10 mm x 32 cm nail was selected and gently placed up the femur. The angle around the total knee made it somewhat difficult to achieve the proper angle. Unfortunately some of the posterior cortex was displaced. The fracture was initially nondisplaced before placing the nail. Once adequate position of the nail was obtained 3 distal interlock screws were placed through the jig. A single proximal interlock was placed just below the level of the lesser trochanter with the magnetic alignment guide. AP and lateral fluoroscopy showed good position of the fracture. There was again some displacement of the cortex posteriorly but the alignment was essentially anatomic on the AP view. The fracture appeared stable when flexing and extending the knee. The knee went out to full extension and could be easily flexed to 105? with no stress on the fracture. The wound was copiously irrigated with 3 L of normal saline. The knee was also soaked with a dilute Betadine solution. A new BCS tibial tray was then placed. The knee was again irrigated. The extensor mechanism was closed with 1. Interrupted Vicryl sutures and a running 1. Quill suture. Subcutaneous tissue was closed with 2 O Vicryl. The skin was closed with radha. A jose dressing was applied. The patient tolerated procedure well and was returned recovery room in good condition. Complications: none Post-operative Condition: stable Disposition: PACU Plan for aftercare: The patient will be placed into a hinged knee brace. She will begin immediate range of motion exercises. Toe-touch weight-bearing for at least 4 weeks after surgery.
--- NOTE | 2019-10-14 12:20 | SUR.PREOP ---
Dr. Rios notified pt has been taking Celebrex and Aspirin. No new orders.
[2019-10-14] MEDS: ALBUTEROL/IPRATROPIUM 3 ML AMPUL INH (13:18)
--- NOTE | 2019-10-14 13:23 | SUR.PREOP ---
O2 sat 88-92%ra, 2lnc applied, sats 96%. Dr. Chowdhury notifed pt wheezing, Duo neb ordered and given.
--- NOTE | 2019-10-14 13:30 | SUR.PREOP ---
Breathing treatment complete. Dr. Chowdhury at bedside. Pt reported breathing improved.
--- NOTE | 2019-10-14 13:49 | SUR.PREOP ---
Dr. Chowdhury notified o2 sat 90%RA prior to block starting. Block start time [1345] . Monitoring initiated and maintained throughout procedure. 2L Oxygen and medications given per anesthesiologist instructions. Patient remained stable throughout procedure, no adverse reactions noted. Block end time [1349].
[2019-10-14] MEDS: CLINDAMYCIN 900 MG/50 ML PIGGYBACK 50 MG IV ×2 (13:53→22:23)
[2019-10-14] MEDS: BUPIVACAINE 0.25% W/ EPI (PF) 20 ML, TRANEXAMIC ACID 1,000 MG, SODIUM CHLORIDE 0.9% 10 ML INJ (15:03)
[2019-10-14] MEDS: BUPIVACAINE 0.25% W/ EPI (PF) 40 ML, BUPIVACAINE LIPOSOME 266 MG, SODIUM CHLORIDE 0.9% ... INJ (15:04)
[2019-10-14] MEDS: HYDROMORPHONE 2 MG INJ IV ×6 (17:11→17:51)
[2019-10-14] MEDS: hydrOXYzine 50 MG/ML INJ 25 MG IM (17:24)
--- NOTE | 2019-10-14 18:19 | SUR.PHASEI ---
Report called to Devorah.
--- NOTE | 2019-10-14 18:41 | SUR.PHASEI ---
Pt transferred to the floor on 2L NC and O2 monitor. VS stable. IV saline locked. Lt knee dressing CDi, KAYDEN drain light flashing. Walker and belongings bag transferred to the floor. Report given to
[2019-10-14] MEDS: LACTATED RINGERS 1,000 ML 125 ML IV (18:53)
[2019-10-14] MEDS: IBUPROFEN 400 MG TABLET PO ×2 (18:55→22:02)
--- NOTE | 2019-10-14 19:09 | PC.ADMIT ---
Pt to acute care from PACU. Spouse present at bedside. Drowsy/oriented. Reports pain 9/10, dozes off during conversation and sats 93% on 2L. Ice pack present and medicated with ibuprofen. Pt also reports increased comfort with head of bed lower. Left knee has zully wrap over KAYDEN dressing, immobilizer also present. Pedal pulse+, reports chronic numbness in left calf and foot. Oriented to room/call light. Spouse took home valuables from purse. Bed alarm on. [id number] Admission Note: The patient,Dipika Greenfield,74 y/o, was given written information regarding hospital policies, unit procedures and contact persons. Patient's smoking status: Never smoker. Vital Signs - 8 hr 10/14/19 11:28 10/14/19 12:58 10/14/19 13:32 Temperature 98.5 F Pulse Rate 51 L 51 L Respiratory Rate 15 12 Blood Pressure 134/53 L 138/42 L Pulse Oximetry 99 91 94 10/14/19 16:54 10/14/19 16:59 10/14/19 17:05 Temperature 96.8 F L Pulse Rate 60 58 L 56 L Respiratory Rate 18 19 19 Blood Pressure 123/47 L 139/57 L 131/55 L Pulse Oximetry 95 95 93 10/14/19 17:12 10/14/19 17:24 10/14/19 17:35 Temperature Pulse Rate 57 L 56 L 59 L Respiratory Rate 15 16 15 Blood Pressure 134/62 127/51 L 125/58 L Pulse Oximetry 95 95 95 10/14/19 17:52 10/14/19 18:00 10/14/19 18:09 Temperature 96.5 F L Pulse Rate 61 55 L 55 L Respiratory Rate 16 15 14 Blood Pressure 111/53 L 117/49 L 125/48 L Pulse Oximetry 96 95 96 10/14/19 18:18 10/14/19 19:02 Temperature Pulse Rate 56 L 59 L Respiratory Rate 13 14 Blood Pressure 129/54 L Pulse Oximetry 93 94
[2019-10-14] MEDS: BRIMONIDINE 0.2% OPHTH 5 ML 1 DROPS EYE-BOTH (20:54)
[2019-10-14] MEDS: ACETAMINOPHEN 325 MG TABLET 975 MG PO ×2 (20:55→22:04)
[2019-10-14] MEDS: glipiZIDE 5 MG TABLET PO (20:56)
[2019-10-14] MEDS: ASPIRIN EC 81 MG TABLET PO (20:56)
[2019-10-14] MEDS: CELECOXIB 100 MG CAPSULE PO (20:57)
[2019-10-14] MEDS: ROPINIROLE 1 MG TABLET PO ×2 (20:59→21:58)
[2019-10-14] MEDS: LATANOPROST 0.005% OPHTH 2.5 ML 1 DROPS EYE-BOTH (21:09)
[2019-10-14] MEDS: hydrOXYzine pamoate 25 MG CAPSULE PO (22:02)
[2019-10-14] MEDS: OXYCODONE IR 5 MG TABLET 10 MG PO (22:02)
[2019-10-14] MEDS: HYDROMORPHONE 0.5 MG INJ IV (23:36)
[2019-10-15] VITALS (7 sets, daily range): BP systolic 108–131; BP diastolic 46–59; PULSE 55–64; RESP 16–18; TEMP 36.3–36.7; O2SAT 82–95
--- NOTE | 2019-10-15 01:18 | PC.NURSE ---
no catheter to manage
[2019-10-15] MEDS: IBUPROFEN 400 MG TABLET PO ×6 (01:34→20:01)
[2019-10-15] MEDS: LACTATED RINGERS 1,000 ML 125 ML IV (01:37)
[2019-10-15] MEDS: CLINDAMYCIN 900 MG/50 ML PIGGYBACK 50 MG IV (05:12)
[2019-10-15] MEDS: HYDROMORPHONE 0.5 MG INJ IV (05:13)
[2019-10-15] MEDS: PANTOPRAZOLE 20 MG TABLET PO (05:13)
[2019-10-15 05:34] LABS: Hematocrit 24.4 % (36-46)
--- NOTE | 2019-10-15 06:02 | PC.NURSE ---
Pt POD 1 s/p repair of supracondylar left femur fracture and placement of intramedullary nail. Pt with KAYDEN drain, beeping green. CMS intact to left leg.. Brace in place. Reports pain 2-9/10 overnight. IV dilaudid 0.5mg admin x2 overnight with relief of pain per pt. No oversedation. A&O x4. Voiding per bedpan overnight. Hx Parkinsons. Monitor CMS, monitor for effective pain control, assist with mobility per order.
[2019-10-15] MEDS: CITALOPRAM 20 MG TABLET PO (08:32)
[2019-10-15] MEDS: ASPIRIN EC 81 MG TABLET PO ×2 (08:32→20:08)
[2019-10-15] MEDS: LOSARTAN 50 MG TABLET 100 MG PO (08:32)
[2019-10-15] MEDS: glipiZIDE 5 MG TABLET PO ×2 (08:32→20:00)
[2019-10-15] MEDS: ACETAMINOPHEN 325 MG TABLET 975 MG PO ×2 (08:33→20:00)
[2019-10-15] MEDS: CELECOXIB 100 MG CAPSULE PO ×2 (08:36→20:06)
[2019-10-15] MEDS: BRIMONIDINE 0.2% OPHTH 5 ML 1 DROPS EYE-BOTH ×2 (08:36→20:01)
[2019-10-15] MEDS: ROPINIROLE 1 MG TABLET PO ×3 (08:37→20:06)
[2019-10-15] MEDS: SIMVASTATIN 20 MG TABLET PO (08:37)
[2019-10-15] MEDS: hydroCHLOROthiazide 12.5 MG CAPSULE PO (08:37)
[2019-10-15] MEDS: SODIUM CHLORIDE 0.9% FLUSH 10 ML IV ×2 (08:48→20:14)
[2019-10-15] MEDS: hydrOXYzine pamoate 25 MG CAPSULE PO ×2 (09:28→15:42)
[2019-10-15] MEDS: OXYCODONE IR 5 MG TABLET 10 MG PO ×3 (09:28→20:00)
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
--- NOTE | 2019-10-15 14:49 | PT-IP ANOTE ---
Pt refused PT stated that she does not want to PT since it is only now that she does not have the pain. asked if PT can do ROM and pt refused. stated that her pain is gone for 10 min and stated I want a break from the pain. Talked to PA for clarification for hinge brace and stated that there is no restriction for the ROM and pt can do AROM but pt should have brace on when she is not on PT.
--- NOTE | 2019-10-15 14:54 | PT.IPTN ---
Current Diagnoses Other fracture of lower end of left femur, initial encounter for closed fracture (10/14/19) Presence of right artificial knee joint (10/14/19) Surgery Performed Operation Date: 10/14/19 12:15 Actual Procedures p Intramedullary Nailing Femur Distal(Left) - Bill Rios MD Physical Therapy Treatment Note M2 PT-IP Current Condition Start: 10/15/19 12:38 Freq: NEEDED Status: Active Protocol: Document 10/15/19 11:20 AB (Rec: 10/15/19 13:11 AB [id number]) Physical Therapy Current Condition Current Condition Evaluation Date 10/15/19 Treatment Diagnosis L supracondylar femur fx able TKA s/p femoral nail; difficulty in walking Onset Date 10/14/19 Precautions Brace L knee hingel brace Other Precautions falls Weight Bearing Status Weight Bearing Status Touch Down Weight Bearing Allowed Weight Bearing Amount (enter % TTWB LLE or #) (%) M3 PT-IP Subjective Start: 10/15/19 12:38 Freq: NEEDED Status: Active Protocol: Document 10/15/19 14:52 AB (Rec: 10/15/19 14:53 AB [id number]) Subjective Physical Therapy Visit Type Type Administrative Note Notes Per PA: no restrictions on ROM
--- NOTE | 2019-10-15 15:02 | CM.IDA ---
Initial DCP Assessment Note: Pt is a 74 yo female, resident of [facility] near [place]. Pt now POD#1 from knee repair surgery done by Dr Rios. PCP: Benito Payer: Medicare/[employer] Pt familiar to this [employer] from her prior admission for total knee surgery approx 2 weeks ago. We attempted SNF near [place] but the two SNFs she requested were unable to admit because 1. they could not admit over the w/e and 2. No Orthopod team near pt's residence would do the f/u care for a surgery that another Orthopod completed. Met w/pt and her spouse Steve today, pt does not want to return to [facility]. Reviewed Medicare Choice List, pt requests referrals be sent to [facility], [facility] and [facility] (spouse had been to [facility] in the past). Steve getting [place] drive [place] pass to go home for the night and plans to return w/their RV closer to pt's DC date. Faxed SNF packet referrals to SNFs listed above. PASRR completed. P: DC expected in the next 48 hrs to SNF via cabulance via pov? F/u needed w/SNFs to discuss acceptance ? JOSR Muro Discharge Planning/Care Management CM Discharge Assessment Start: 10/15/19 14:59 Freq: Status: Active Protocol: Document 10/15/19 15:00 RICHY (Rec: 10/15/19 15:02 RICHY [id number]) Discharge Planning Assessment Assigned Business Services Specialist Sales JOSR Russell DPOA/Assigned Designee Name Steve Greenfield, spouse Contact Information [phone] Advance Directives? Yes Advance Directives on File No History Provided By Patient,Significant Other Prior Living Arrangements House Household Members spouse Type of transporation used prior to Drives own vehicle admit Facility Name Admitted From: [facility] Willing to Return to Facility? No Independent with ADL's Yes Is patient alert and oriented? Yes Patient/Family Preference [facility] Facility Barriers to Discharge Yes Comment Needs SNF in this region before return to [facility] Discharge Plan Prison Facility Transportation Arrangement w/c vs spouse Referrals Initiated Prison Review Status In Process
--- NOTE | 2019-10-15 18:45 | PM.PNPO.1 ---
Subjective Subjective Date Patient Seen: 10/15/19 Time Patient Seen: 09:00 Interval history: POD 1 s/p Retrograde femoral nail left leg and replacement of polyethylene spacer left total knee with Dr. Rios. No acute events overnight. Patient complains of pain in L knee with movement, 6-8/10. Patient admits to numbness from L knee to foot. Patient able to urinate without difficulty. Pain well managed. Mobilized with PT today - 2 assist, struggled with toe touch weight bearing. Patient denies fever, chills, nausea, vomiting, chest pain, shortness of breath, calf pain. Exam Vital Signs (past 8 hours): - 10/15/19 13:00 10/15/19 15:54 Temperature 97.4 F L 98.0 F Pulse Rate 57 L 58 L Respiratory Rate 18 16 Blood Pressure 108/56 L 121/59 L Pulse Oximetry 95 95 Oxygen Delivery Method Room Air Oxygen Flow Rate 1.5 Narrative Exam Narrative: 74 yo female lying comfortably in bed, in no apparent distress. A&Ox3. Dressing CDI, zully wrap, SCDs and knee immobilizer in place. Able to actively dorsiflex/plantar flex bl. Dorsalis pedis 2+ bl. Capillary refill <2sec LE bl. Sensory function grossly intact to light touch in LE b/l except for L knee to L foot. Calves warm, soft, compressible, nttp b/l. Objective Labs Result Diagrams: 10/15/19 05:01 Labs: Laboratory Results - last 24 hr 10/15/19 05:01 Hgb 8.0 L Hct 24.4 L Assessment & Plan Post-op Postoperative Procedures: Procedures Operation Date: 10/14/19 12:15 Actual Procedures Side Surgeon p Intramedullary Nailing Femur Distal Left Bill Rios MD Postoperative plan narrative: The patient will be kept in a hinged knee brace. She will continue range of motion exercises. Toe-touch weight-bearing for at least 4 weeks after surgery. Continue current pain medication management Continue SCDs Patient is progressing slowly with PT (2 assist) and having difficulty with toe touch weight bearing. Most likely will need to be discharged to a SNF. Time Spent With Patient Time with patient: less than 15 minutes
[2019-10-15] MEDS: LATANOPROST 0.005% OPHTH 2.5 ML 1 DROPS EYE-BOTH (20:01)
[2019-10-16] VITALS (11 sets, daily range): BP systolic 93–149; BP diastolic 40–74; PULSE 52–63; RESP 15–20; TEMP 36.5–36.8; O2SAT 88–96
[2019-10-16] MEDS: OXYCODONE IR 5 MG TABLET 10 MG PO ×3 (01:28→20:52)
[2019-10-16] MEDS: ALBUTEROL 2.5 MG/3 ML NEB (ADULT) INH (01:28)
[2019-10-16] MEDS: IBUPROFEN 400 MG TABLET PO ×5 (01:29→17:39)
[2019-10-16] MEDS: hydrOXYzine pamoate 25 MG CAPSULE PO ×3 (01:30→20:53)
[2019-10-16] MEDS: PANTOPRAZOLE 20 MG TABLET PO (05:06)
[2019-10-16] MEDS: CITALOPRAM 20 MG TABLET PO (08:08)
[2019-10-16] MEDS: ASPIRIN EC 81 MG TABLET PO ×2 (08:08→20:42)
[2019-10-16] MEDS: glipiZIDE 5 MG TABLET PO ×2 (08:08→20:42)
[2019-10-16] MEDS: LOSARTAN 50 MG TABLET 100 MG PO (08:09)
[2019-10-16] MEDS: BRIMONIDINE 0.2% OPHTH 5 ML 1 DROPS EYE-BOTH ×2 (08:10→20:43)
[2019-10-16] MEDS: ROPINIROLE 1 MG TABLET PO ×3 (08:11→20:45)
[2019-10-16] MEDS: CELECOXIB 100 MG CAPSULE PO ×2 (08:11→20:59)
[2019-10-16] MEDS: hydroCHLOROthiazide 12.5 MG CAPSULE PO (08:11)
[2019-10-16] MEDS: SIMVASTATIN 20 MG TABLET PO (08:12)
--- NOTE | 2019-10-16 09:58 | P.PN_ITS ---
Subjective Subjective Date Patient Seen: 10/16/19 Time Patient Seen: 09:58 Interval history: Interval history: POD 2 s/p Retrograde femoral nail left leg and replacement of polyethylene spacer left total knee with Dr. Rios. No acute events overnight. Patient complains of pain in L knee with movement, 6- 8/10. Patient admits to numbness from L knee to foot. Patient able to urinate without difficulty. Pain well managed. Mobilized with PT today - 2 assist, str uggled with toe touch weight bearing. mainly using lift to mobilize. Patient denies fever, chills, nausea, vomiting, chest pain, shortness of breath, calf pain. Exam Vital Signs (past 8 hours): - 10/16/19 05:15 10/16/19 07:13 Temperature 97.7 F 98.1 F Pulse Rate 53 L 55 L Respiratory Rate 19 16 Blood Pressure 126/47 L 108/41 L Pulse Oximetry 96 94 Oxygen Delivery Method Nasal Cannula Oxygen Flow Rate 1 Narrative Exam Narrative: Exam Narrative: 74 yo female lying comfortably in bed, in no apparent distress. A&Ox3. Dressing CDI, zully wrap, SCDs and knee immobilizer in place. Able to actively dorsiflex/plantar flex bl. Sensory function grossly intact to light touch in LE b/l except for L knee to L foot. Objective Labs Result Diagrams: 10/15/19 05:01 Assessment & Plan Assessment & Plan narrative: Patient is now postop day 2 from intramedullary nailing of a supracondylar femur fracture. She is slow to progress with physical therapy we will continue with pain control and mobilization. Anticipate discharge to custodial facility.
--- NOTE | 2019-10-16 10:38 | PT.IPTN ---
Current Diagnoses Other fracture of lower end of left femur, initial encounter for closed fracture (10/14/19) Presence of right artificial knee joint (10/14/19) Surgery Performed Operation Date: 10/14/19 12:15 Actual Procedures p Intramedullary Nailing Femur Distal(Left) - Bill Rios MD Physical Therapy Treatment Note M2 PT-IP Current Condition Start: 10/15/19 12:38 Freq: NEEDED Status: Active Protocol: Document 10/15/19 11:20 AB (Rec: 10/15/19 13:11 AB [id number]) Physical Therapy Current Condition Current Condition Evaluation Date 10/15/19 Treatment Diagnosis L supracondylar femur fx able TKA s/p femoral nail; difficulty in walking Onset Date 10/14/19 Precautions Brace L knee hinge brace Other Precautions falls Weight Bearing Status Weight Bearing Status Touch Down Weight Bearing Allowed Weight Bearing Amount (enter % TTWB LLE or #) (%) M3 PT-IP Subjective Start: 10/15/19 12:38 Freq: NEEDED Status: Active Protocol: Document 10/16/19 11:36 CLB (Rec: 10/16/19 12:41 CLB [id number]) Subjective Physical Therapy Visit Type Type Patient Unavailable Notes Per RN pt is having low BP and RN is waiting to hear from surgeon. Will check back with pt in afternoon. M4 PT-IP Mobility and Gait Start: 10/15/19 12:38 Freq: NEEDED Status: Active Protocol: Document 10/15/19 11:20 AB (Rec: 10/15/19 13:11 AB [id number]) PT-Bed Mobility Assessment Supine to Sit Supine to Sit Maximum Assistance,2 Person Assistance,Head of Bed Elevated,Bedrails Scooting Scooting to Edge of Bed Dependent PT-Transfer Assessment Sit to and From Stand Sit to and from Stand Maximum Assistance,2 Person Assistance,Use of Upper Extremities Equipment Transfer Assistive Device Gait Belt,Front Wheeled Walker Orthotic/Prosthetic Devices or Brace: No Transfers Transfer Destination Chair Transfer Technique Stand Pivot Transfer Ability Level of Assist Maximum Assistance,Total Assistance,2 Person Assistance ,Use of Upper Extremities Comments Mobility Comments received order for immediate ROM on L knee on brace but not parameters received. pt on hinge knee brace and brace was set up at 0 deg ext/flexion. awaiting doctor's clarification. Nurse left message to PA. Initiated L knee ROM with brace on but only up to ~ 10 deg for safety until further clarification obtained from the doctor. nonetheless, pt cannot bent L knee more due to c/o increase pain. pt seems very sleepy, requiring constant cues to keep eyes open. O2 sat 96% with O2 on, at room air 94%. O2 sat decreases when pt dozes off. cued to take deep breaths and O2 sat increased to 95% pt completed bed mobility supine to sit max A and max cues. presents with increase posterior leaning in sitting position requiring max A to maintain sitting balance. pt educated on LLE precautions and weight bearing restriction . pt completed sit to stand from EOB max A x 2 initially was able to keep heel off the floor but unable to maintain during transfer. initially had non skid socks on pt but pt requested R nonskid sock to be off for her to be able to pivot. pt was adamant about taking sock off and stated that she rather had an infection that not being able to walk. pt required max A to total A x 2 for pivot transfer. pt unable to maintain TTWB and was instructed to just to follow NWB and pt unable to maintain weight bearing restriction. positioned pt on chair. call light and table placed within reach. Gait Assessment Comments Gait Comments unable at this time PT-Balance Assessment Sitting Balance and Reactions Static Sitting Balance Ability Poor Dynamic Sitting Balance Ability Poor Standing Balance and Reactions Static Standing Balance Ability Poor Dynamic Standing Balance Ability Poor Device Used FWW M5 PT-IP Objective Assessments Start: 10/15/19 12:38 Freq: NEEDED Status: Active Protocol: Document 10/15/19 11:20 AB (Rec: 10/15/19 13:11 AB [id number]) Orientation Orientation/Cognition Level of Alertness Lethargic Orientation Name Safety Awareness Decreased Safety Awareness Memory Description Short Term Impaired,Nursing Home Physician Impaired Gross Range of Motion Lower Extremity ROM Assessment Left Impaired Impairments pain limiting mobility; L knee on hinge brace Strength Lower Extremity Strength Assessment Left Impaired Knee 3-/5 Ankle 3+/5 Sensation Assessment Sensation Gross Sensation Right LE Impaired Light Touch Impaired Proprioception (Position) Impaired Sensation Description Numbness Muscle Tone Muscle Tone WNL No M6 PT-IP Treatment Start: 10/15/19 12:38 Freq: NEEDED Status: Active Protocol: Document 10/15/19 11:20 AB (Rec: 10/15/19 13:11 AB [id number]) Physical Therapy Treatment Exercises Exercises Ankle Pumps,Quad Sets,Heel Slides Education Education Provided Precautions,Weight Bearing Status,Safety M7 PT-IP Assessment and Plan Start: 10/15/19 12:38 Freq: NEEDED Status: Active Protocol: Document 10/15/19 11:20 AB (Rec: 10/15/19 13:11 AB [id number]) PT Summary Assessment and Plan Potential Rehabilitation Potential Fair Status of Condition at Evaluation Evolving Summary Impairments Pain,ROM,Strength,Balance, Coordination,Sensation,Tone, Cognition,Bed Mobility, Transfers,Gait,Activity Tolerance Assessment Summary pt requiring max A x 2 to total A x 2 with mobility and unable to ambulate at this time. c/o increase pain on L knee and is limited to TTWB on LLE. pt will require SNF rehab to improve strength and mobility. Goals Bed Mobility Goal Minimal Assistance Transfer Goal Minimal Assistance,Front Wheeled Walker Gait Goal Minimal Assistance,Front Wheel Walker Gait Distance 25 Days to Meet Goals 10 Frequency of Treatment Frequency Of Treatment Twice a Day Treatment Plan Physical Therapy Treatment Plan Bed Mobility Training,Transfer Training,Gait Training, Therapeutic Exercise,Balance Retraining,Post Op Education, Discharge Planning,Hot or Cold Pack,Neuromuscular Re-ed, Coordination Retraining,Manual Therapy Recommendations To Nursing Amount of Assist Needed Mechanical Lift Discharge Recommendations PT Discharge Recommendations SNF Rehab
[2019-10-16] MEDS: SODIUM CHLORIDE 0.9% FLUSH 10 ML IV ×2 (12:00→20:45)
[2019-10-16] MEDS: TIMOLOL 0.5% OPHTH 1 DROPS EYE-BOTH ×2 (12:37→21:01)
[2019-10-16] MEDS: SODIUM CHLORIDE 0.9% 1,000 ML 1000 ML IV (12:38)
--- NOTE | 2019-10-16 13:45 | PT.IPTN ---
Current Diagnoses Other fracture of lower end of left femur, initial encounter for closed fracture (10/14/19) Presence of right artificial knee joint (10/14/19) Surgery Performed Operation Date: 10/14/19 12:15 Actual Procedures p Intramedullary Nailing Femur Distal(Left) - Bill Rios MD Physical Therapy Treatment Note M2 PT-IP Current Condition Start: 10/15/19 12:38 Freq: NEEDED Status: Active Protocol: Document 10/15/19 11:20 AB (Rec: 10/15/19 13:11 AB [id number]) Physical Therapy Current Condition Current Condition Evaluation Date 10/15/19 Treatment Diagnosis L supracondylar femur fx able TKA s/p femoral nail; difficulty in walking Onset Date 10/14/19 Precautions Brace L knee hinge brace Other Precautions falls Weight Bearing Status Weight Bearing Status Touch Down Weight Bearing Allowed Weight Bearing Amount (enter % TTWB LLE or #) (%) M3 PT-IP Subjective Start: 10/15/19 12:38 Freq: NEEDED Status: Active Protocol: Document 10/16/19 13:45 CLB (Rec: 10/16/19 15:56 CLB [id number]) Subjective Physical Therapy Visit Type Type Patient Unavailable Notes Pt with low BP per RN (96/43) will follow up with pt tomorrow. M4 PT-IP Mobility and Gait Start: 10/15/19 12:38 Freq: NEEDED Status: Active Protocol: Document 10/15/19 11:20 AB (Rec: 10/15/19 13:11 AB [id number]) PT-Bed Mobility Assessment Supine to Sit Supine to Sit Maximum Assistance,2 Person Assistance,Head of Bed Elevated,Bedrails Scooting Scooting to Edge of Bed Dependent PT-Transfer Assessment Sit to and From Stand Sit to and from Stand Maximum Assistance,2 Person Assistance,Use of Upper Extremities Equipment Transfer Assistive Device Gait Belt,Front Wheeled Walker Orthotic/Prosthetic Devices or Brace: No Transfers Transfer Destination Chair Transfer Technique Stand Pivot Transfer Ability Level of Assist Maximum Assistance,Total Assistance,2 Person Assistance ,Use of Upper Extremities Comments Mobility Comments received order for immediate ROM on L knee on brace but not parameters received. pt on hinge knee brace and brace was set up at 0 deg ext/flexion. awaiting doctor's clarification. Nurse left message to PA. Initiated L knee ROM with brace on but only up to ~ 10 deg for safety until further clarification obtained from the doctor. nonetheless, pt cannot bent L knee more due to c/o increase pain. pt seems very sleepy, requiring constant cues to keep eyes open. O2 sat 96% with O2 on, at room air 94%. O2 sat decreases when pt dozes off. cued to take deep breaths and O2 sat increased to 95% pt completed bed mobility supine to sit max A and max cues. presents with increase posterior leaning in sitting position requiring max A to maintain sitting balance. pt educated on LLE precautions and weight bearing restriction . pt completed sit to stand from EOB max A x 2 initially was able to keep heel off the floor but unable to maintain during transfer. initially had non skid socks on pt but pt requested R nonskid sock to be off for her to be able to pivot. pt was adamant about taking sock off and stated that she rather had an infection that not being able to walk. pt required max A to total A x 2 for pivot transfer. pt unable to maintain TTWB and was instructed to just to follow NWB and pt unable to maintain weight bearing restriction. positioned pt on chair. call light and table placed within reach. Gait Assessment Comments Gait Comments unable at this time PT-Balance Assessment Sitting Balance and Reactions Static Sitting Balance Ability Poor Dynamic Sitting Balance Ability Poor Standing Balance and Reactions Static Standing Balance Ability Poor Dynamic Standing Balance Ability Poor Device Used FWW M5 PT-IP Objective Assessments Start: 10/15/19 12:38 Freq: NEEDED Status: Active Protocol: Document 10/15/19 11:20 AB (Rec: 10/15/19 13:11 AB [id number]) Orientation Orientation/Cognition Level of Alertness Lethargic Orientation Name Safety Awareness Decreased Safety Awareness Memory Description Short Term Impaired,Senior Care Impaired Gross Range of Motion Lower Extremity ROM Assessment Left Impaired Impairments pain limiting mobility; L knee on hinge brace Strength Lower Extremity Strength Assessment Left Impaired Knee 3-/5 Ankle 3+/5 Sensation Assessment Sensation Gross Sensation Right LE Impaired Light Touch Impaired Proprioception (Position) Impaired Sensation Description Numbness Muscle Tone Muscle Tone WNL No M6 PT-IP Treatment Start: 10/15/19 12:38 Freq: NEEDED Status: Active Protocol: Document 10/15/19 11:20 AB (Rec: 10/15/19 13:11 AB [id number]) Physical Therapy Treatment Exercises Exercises Ankle Pumps,Quad Sets,Heel Slides Education Education Provided Precautions,Weight Bearing Status,Safety M7 PT-IP Assessment and Plan Start: 10/15/19 12:38 Freq: NEEDED Status: Active Protocol: Document 10/15/19 11:20 AB (Rec: 10/15/19 13:11 AB [id number]) PT Summary Assessment and Plan Potential Rehabilitation Potential Fair Status of Condition at Evaluation Evolving Summary Impairments Pain,ROM,Strength,Balance, Coordination,Sensation,Tone, Cognition,Bed Mobility, Transfers,Gait,Activity Tolerance Assessment Summary pt requiring max A x 2 to total A x 2 with mobility and unable to ambulate at this time. c/o increase pain on L knee and is limited to TTWB on LLE. pt will require SNF rehab to improve strength and mobility. Goals Bed Mobility Goal Minimal Assistance Transfer Goal Minimal Assistance,Front Wheeled Walker Gait Goal Minimal Assistance,Front Wheel Walker Gait Distance 25 Days to Meet Goals 10 Frequency of Treatment Frequency Of Treatment Twice a Day Treatment Plan Physical Therapy Treatment Plan Bed Mobility Training,Transfer Training,Gait Training, Therapeutic Exercise,Balance Retraining,Post Op Education, Discharge Planning,Hot or Cold Pack,Neuromuscular Re-ed, Coordination Retraining,Manual Therapy Recommendations To Nursing Amount of Assist Needed Mechanical Lift Discharge Recommendations PT Discharge Recommendations SNF Rehab
--- NOTE | 2019-10-16 14:23 | PC.NURSE ---
8529 Dr Cintron notified of Pts low b/p, poor PO fluid intake, low urinary Op. and the ,H&H results from 10/15. A NS bolus ordered. 1400 Bolus infused, Pt has been inc of mod/lge amt urine. Pt taking in more PO fluids w/encouragement. Pt uses IS when reminded. O2 2L on,pt is sleepy most this shift. PT not done today r/t Pts low B/P. Pt is pleasant & ,cooperative.
[2019-10-16] MEDS: LATANOPROST 0.005% OPHTH 2.5 ML 1 DROPS EYE-BOTH (20:47)
--- NOTE | 2019-10-16 22:30 | PC.NURSE ---
Pt used 10 mg oxy + 25 mg Visteril x 1 this shift. She rates her pain 5-6/10. She required 1L O2 NC to stay > than 92%. She did not work with PT today 2/2 her hypotension which has resolved. She is using her IS. She is using a bedpan to urinate. She had a piece of pasta lodge in her esophagus at dinner and felt it was in her trachea until she took some sips of water and felt it move down. She otherwise is eating and drinking and passing gas.
[2019-10-17] VITALS (15 sets, daily range): BP systolic 97–138; BP diastolic 42–56; PULSE 52–76; RESP 12–18; TEMP 36.2–37.1; O2SAT 95–100
[2019-10-17] MEDS: OXYCODONE IR 5 MG TABLET 10 MG PO (03:55)
[2019-10-17] MEDS: hydrOXYzine pamoate 25 MG CAPSULE PO (03:55)
[2019-10-17] MEDS: PANTOPRAZOLE 20 MG TABLET PO (05:28)
[2019-10-17] MEDS: BRIMONIDINE 0.2% OPHTH 5 ML 1 DROPS EYE-BOTH ×2 (09:31→22:53)
[2019-10-17] MEDS: SIMVASTATIN 20 MG TABLET PO (09:32)
[2019-10-17] MEDS: CELECOXIB 100 MG CAPSULE PO (09:32)
[2019-10-17] MEDS: CITALOPRAM 20 MG TABLET PO (09:33)
[2019-10-17] MEDS: IBUPROFEN 400 MG TABLET PO ×3 (09:33→23:01)
[2019-10-17] MEDS: glipiZIDE 5 MG TABLET PO (09:33)
[2019-10-17] MEDS: ACETAMINOPHEN 325 MG TABLET 975 MG PO ×3 (09:35→22:53)
[2019-10-17] MEDS: SODIUM CHLORIDE 0.9% FLUSH 10 ML IV ×2 (09:39→22:56)
--- NOTE | 2019-10-17 10:34 | CM.DPNOTE ---
Addendum entered by Susan Bright R.N. 10/17/19 14:01: CM/Rn spoke with Zayra form [facility] and confirmed her stay of 2weeks at [facility]. Zayra stated understanding and will accept patient at d/c for admission to [facility]. Susan Bright RN Original Note: Met with patient spoke with her and (who was on the phone). Told both the [facility] had agreed to accept her as a patient. Both agreeable to that plan. Left message with Zayra including that patient stayed at [facility] for 2 weeks of SNF care. Awaiting to hear back.
--- NOTE | 2019-10-17 10:46 | PT.IPTN ---
Current Diagnoses Other fracture of lower end of left femur, initial encounter for closed fracture (10/14/19) Presence of right artificial knee joint (10/14/19) Surgery Performed Operation Date: 10/14/19 12:15 Actual Procedures p Intramedullary Nailing Femur Distal(Left) - Bill Rios MD Physical Therapy Treatment Note M2 PT-IP Current Condition Start: 10/15/19 12:38 Freq: NEEDED Status: Active Protocol: Document 10/15/19 11:20 AB (Rec: 10/15/19 13:11 AB [id number]) Physical Therapy Current Condition Current Condition Evaluation Date 10/15/19 Treatment Diagnosis L supracondylar femur fx able TKA s/p femoral nail; difficulty in walking Onset Date 10/14/19 Precautions Brace L knee hinge brace Other Precautions falls Weight Bearing Status Weight Bearing Status Touch Down Weight Bearing Allowed Weight Bearing Amount (enter % TTWB LLE or #) (%) M3 PT-IP Subjective Start: 10/15/19 12:38 Freq: NEEDED Status: Active Protocol: Document 10/17/19 10:29 CLB (Rec: 10/17/19 13:54 CLB [id number]) Subjective Physical Therapy Visit Type Type Treatment Note Visit Start Time 10:29 Visit Stop Time 10:46 Total Visit Minutes 17 Number of AUTOMOBILE LOCATOR Visits 1 Physical Therapy Visit Comments Patient Comments Pt willing to perform bed ther ex and transfer to chair. Therapy Pain Assessment Pain When Pain Assessed At Rest Pain Present Pain Present Denied Pain M4 PT-IP Mobility and Gait Start: 10/15/19 12:38 Freq: NEEDED Status: Active Protocol: Document 10/15/19 11:20 AB (Rec: 10/15/19 13:11 AB [id number]) PT-Bed Mobility Assessment Supine to Sit Supine to Sit Maximum Assistance,2 Person Assistance,Head of Bed Elevated,Bedrails Scooting Scooting to Edge of Bed Dependent PT-Transfer Assessment Sit to and From Stand Sit to and from Stand Maximum Assistance,2 Person Assistance,Use of Upper Extremities Equipment Transfer Assistive Device Gait Belt,Front Wheeled Walker Orthotic/Prosthetic Devices or Brace: No Transfers Transfer Destination Chair Transfer Technique Stand Pivot Transfer Ability Level of Assist Maximum Assistance,Total Assistance,2 Person Assistance ,Use of Upper Extremities Comments Mobility Comments received order for immediate ROM on L knee on brace but not parameters received. pt on hinge knee brace and brace was set up at 0 deg ext/flexion. awaiting doctor's clarification. Nurse left message to PA. Initiated L knee ROM with brace on but only up to ~ 10 deg for safety until further clarification obtained from the doctor. nonetheless, pt cannot bent L knee more due to c/o increase pain. pt seems very sleepy, requiring constant cues to keep eyes open. O2 sat 96% with O2 on, at room air 94%. O2 sat decreases when pt dozes off. cued to take deep breaths and O2 sat increased to 95% pt completed bed mobility supine to sit max A and max cues. presents with increase posterior leaning in sitting position requiring max A to maintain sitting balance. pt educated on LLE precautions and weight bearing restriction . pt completed sit to stand from EOB max A x 2 initially was able to keep heel off the floor but unable to maintain during transfer. initially had non skid socks on pt but pt requested R nonskid sock to be off for her to be able to pivot. pt was adamant about taking sock off and stated that she rather had an infection that not being able to walk. pt required max A to total A x 2 for pivot transfer. pt unable to maintain TTWB and was instructed to just to follow NWB and pt unable to maintain weight bearing restriction. positioned pt on chair. call light and table placed within reach. Gait Assessment Comments Gait Comments unable at this time PT-Balance Assessment Sitting Balance and Reactions Static Sitting Balance Ability Poor Dynamic Sitting Balance Ability Poor Standing Balance and Reactions Static Standing Balance Ability Poor Dynamic Standing Balance Ability Poor Device Used FWW M5 PT-IP Objective Assessments Start: 10/15/19 12:38 Freq: NEEDED Status: Active Protocol: Document 10/15/19 11:20 AB (Rec: 10/15/19 13:11 AB [id number]) Orientation Orientation/Cognition Level of Alertness Lethargic Orientation Name Safety Awareness Decreased Safety Awareness Memory Description Short Term Impaired,Senior Living Impaired Gross Range of Motion Lower Extremity ROM Assessment Left Impaired Impairments pain limiting mobility; L knee on hinge brace Strength Lower Extremity Strength Assessment Left Impaired Knee 3-/5 Ankle 3+/5 Sensation Assessment Sensation Gross Sensation Right LE Impaired Light Touch Impaired Proprioception (Position) Impaired Sensation Description Numbness Muscle Tone Muscle Tone WNL No M6 PT-IP Treatment Start: 10/15/19 12:38 Freq: NEEDED Status: Active Protocol: Document 10/17/19 10:29 CLB (Rec: 10/17/19 13:54 CLB [id number]) Physical Therapy Treatment Exercises Exercises Ankle Pumps,Quad Sets,Heel Slides Other Treatments Other Treatment Performed PF/DF with resistance. Pt refused SCD on RLE. M7 PT-IP Assessment and Plan Start: 10/15/19 12:38 Freq: NEEDED Status: Active Protocol: Document 10/17/19 10:29 CLB (Rec: 10/17/19 13:54 CLB [id number]) PT Summary Assessment and Plan Potential Rehabilitation Potential Fair Status of Condition at Evaluation Evolving Summary Impairments Pain,ROM,Strength,Balance, Coordination,Sensation,Tone, Cognition,Bed Mobility, Transfers,Gait,Activity Tolerance Progress Towards Goals Slow Progress due to Medical Issues Assessment Summary Pt agreeable to perform ROM ther ex on LLE and transfer to chair but pt had a difficult time staying awake. Pt with decreased sensation of LLE but was able to state she had feeling in hip area. Pt also said she had no feeling in right foot as well. Pt was only able to flex knee minimally and was guarded when therapist tried to perform PROM and therapist was unable to flex knee past ~10 degrees. Pt ankle strength 3+. Pt presented with pitting and bruise on lateral LE and brace was adjusted for comfort. Pt left in bed with alarm on, call light and all needs within reach. Goals Bed Mobility Goal Minimal Assistance Transfer Goal Minimal Assistance,Front Wheeled Walker Gait Distance 25 Days to Meet Goals 10 Frequency of Treatment Frequency Of Treatment Twice a Day Treatment Plan Physical Therapy Treatment Plan Bed Mobility Training,Transfer Training,Gait Training, Therapeutic Exercise,Balance Retraining,Post Op Education, Discharge Planning,Hot or Cold Pack,Neuromuscular Re-ed, Coordination Retraining,Manual Therapy Other Recommendations and Next Treatment transfers, ambulation, ROM Focus Recommendations To Nursing Amount of Assist Needed 1 Person Assist Discharge Recommendations PT Discharge Recommendations SNF Rehab
[2019-10-17 12:32] LABS: Hemoglobin 6.8 g/dL (12.0-16.0)
[2019-10-17 12:33] LABS: Hematocrit 20.6 % (36-46)
[2019-10-17] MEDS: DEXTROSE 50 % IN WATER 25 GM/50 ML SYRINGE ×3 (12:46→21:00)
--- NOTE | 2019-10-17 12:48 | PC.NURSE ---
Day shift: Pt unresponsive at approx 1230. Critical H/H called in from lab and prior to letting MD know ([facility] called and they are attempting to get hold of PA or MD.) this service writer went in to check on sleeping Pt and she would not wake up to voice or shaking of shoulders. Called staff emergency and did sternal rub and Pt did open her eyes but non-verbal. Last BP 105/56. HR 94. RR 6-8. 86% RA. Palced on face mask O2. Given D5 per protocol. Orders placed for type and cross. Pt is now (1254) able to answer questions. Awaiting to talk with MD or PA. WIll update notes. residential roofer helper and ED RN here at this time as well. Will continue to monitor.
--- NOTE | 2019-10-17 12:49 | DI.RAD.S_ITS ---
PROCEDURE: XR CHEST 1V INDICATIONS: change in patient status, rapid response TECHNIQUE: One view of the chest was acquired. COMPARISON: None. FINDINGS: Surgical changes and devices: Fusion hardware in mid to lower cervical spine is seen. Lungs and pleura: There is mild pulmonary vascular congestion. Blunting of left costophrenic angle is noted concerning for small left pleural effusion. No gross pneumothorax. Mediastinum: Mediastinal contours appear normal. Heart size is enlarged. Bones and chest wall: No suspicious bony lesions. Overlying soft tissues appear unremarkable. IMPRESSION: Cardiomegaly and mild congestion. Suggestion of small left pleural effusion. No definite focal infiltrate or gross pneumothorax. Dictated by: Carlos Griffin M.D. on 10/17/2019 at 13:05 Approved by: Carlos Griffin M.D. on 10/17/2019 at 13:06
[2019-10-17 13:40] LABS: BUN Creatinine Ratio 31.4 (6-22); Blood Urea Nitrogen 66 mg/dL (7-17); Calcium 8.2 mg/dL (8.4-10.2); Carbon Dioxide 26 mmol/L (22-32); Chloride 103 mmol/L (98-107); Glucose 160 mg/dL (80-110); HEMOLYSIS < 15 (0-50); Sodium 136 mmol/L (137-145)
--- NOTE | 2019-10-17 13:40 | PC.NURSE ---
Day shift: Dr Pineda assessed Pt and implemented new orders. Pt resting in bed with BP improving and NS bolus infusing. LAst BP 105/51 with HR 53. RA 97%. Bed alrm is on. Call light in reach. Door to room open. Will continue to monitor. LAst BG 176. Pt responds to voice and touch. ITA Telles has seen the Pt also (at 1345).
--- NOTE | 2019-10-17 13:56 | PM.CN ---
History of Present Illness Consult details Date Patient Seen: 10/17/19 Time Patient Seen: 13:30 Chief complaint: 32735 L DISTAL FEMUR INTRAMEDULLARY SOO INSERTION Reason for consult: acute obtundation Requesting provider: Bill Rios Narrative: Patient is a 74-year-old female with history of diabetes and hypertension consulted on postop day 3 status post elective repair of supra con deliver femur fracture above recent left total knee arthroplasty. Patient was noted to be acutely unresponsive around 1:00 p.m.. Her glucose was 65. She was mildly hypertensive with BP in the 90 systolic. She received D50 for hypoglycemia. Stat labs were obtained and showed severe acute anemia with hemoglobin 6.8 and hematocrit 20.6. Her Chem panel indicated she is in acute renal failure with BUN 66, creatinine 2.10 verses BUN 35 and creatinine 1.20 on 10/05/2019 and acutely hyperchloremic with a serum potassium of 6.5 versus potassium of 5.5 on 10/05/2019. Her EKG showed normal sinus rhythm, mild intraventricular conduction delay, mild nonspecific T-wave abnormality, absence of peaked T-waves or PVCs. Chest x-ray with cardiomegaly but without acute infiltrate. Patient is on glipizide for diabetes and on losartan and HCTZ for hypertension treatment. At time of examination she is fairly obtunded but able to briefly indicate absence of chest pain or other discomfort. She has been afebrile. Her last opioid pain reliever dose was at 4:00 a.m. which is about 7 hours prior to this incident. [facility] Social History household members: spouse Smoking Status: Never smoker alcohol intake: never Meds Home Medications and Allergies Home Medications Medication Instructions Recorded Confirmed Type omeprazole 20 mg capsule,delayed 20 mg PO DAILY 06/11/18 10/14/19 History release PreserVision AREDS-2 1 tab PO BID 09/14/19 10/14/19 History celecoxib [Celebrex] 100 mg PO BID 09/14/19 10/14/19 History ropinirole 1 mg PO TID 09/28/19 10/14/19 History acetaminophen 975 mg PO TID #90 tab 10/01/19 10/14/19 Rx aspirin 81 mg PO BID #60 tab 10/01/19 10/14/19 Rx brimonidine 1 drp EYE-BOTH BID 10/05/19 10/14/19 History citalopram 20 mg PO DAILY 10/05/19 10/14/19 History epinephrine 0.3 mg IM PRN PRN 10/05/19 10/14/19 History glipizide 5 mg PO BID 10/05/19 10/14/19 History hydrochlorothiazide 12.5 mg PO DAILY 10/05/19 10/14/19 History latanoprost 1 drp EYE-BOTH BEDTIME 10/05/19 10/14/19 History losartan 100 mg PO DAILY 10/05/19 10/14/19 History simvastatin 20 mg PO DAILY 10/05/19 10/14/19 History albuterol sulfate 0.63 mg INHALATION Q4-6H PRN 10/14/19 10/14/19 History budesonide 0.25 mg INHALATION BID 10/14/19 10/14/19 History hydroxyzine pamoate 25 mg PO Q6HR PRN 10/14/19 10/14/19 History oxycodone 10 mg PO Q3HR PRN 10/14/19 10/14/19 History Allergies Allergy/AdvReac Type Severity Reaction Status Date / Time cephalexin [From KEFLEX] Allergy Severe FACIAL/THROAT Verified 10/14/19 11:14 SWELLIING, ITCHING kiwi [KIWI] Allergy Severe THROAT Verified 10/14/19 11:14 SWELLING, ITCHING latex [LATEX] Allergy Severe SITE OF Verified 10/14/19 11:14 CONTACT SWELLING, BLISTERS macadamia nut oil Allergy Severe THROAT Verified 10/14/19 11:14 [MACADAMIA NUT OIL] SWELLING, ITCHING methadone [METHADONE] Allergy Severe HALUCINATIO Verified 10/14/19 11:14 NS Penicillins [PENICILLINS] Allergy Severe FACIAL/THROAT Verified 10/14/19 11:14 SWELLILNG, ITCHING vancomycin [VANCOMYCIN] Allergy Severe FACIAL/THROAT Verified 10/14/19 11:14 SWELLING, ITCHING Review of Systems Review of Systems ROS Unobtainable: unobtainable due to mental status Exam Vital Signs (past 8 hours): - 10/17/19 08:00 Temperature 98 F Pulse Rate 63 Respiratory Rate 18 Blood Pressure 125/47 L Pulse Oximetry 95 Oxygen Delivery Method Nasal Cannula Oxygen Flow Rate 0 Narrative Exam Narrative: GENERAL: Obtunded female who is able to briefly open eyes with verbal cuing HEAD: Atraumatic. Normocephalic. EYES: Pupils equal, round and reactive. Extraocular motions intact. No scleral icterus. OROPHARYNX: Unremarkable NECK: Trachea midline. No JVD or lymphadenopathy. CARDIOVASCULAR: Regular rate and rhythm without murmurs, gallops, or rubs. RESPIRATORY: Clear to auscultation bilaterally. GASTROINTESTINAL: Abdomen nondistended, soft, non-tender. No hepato-splenomegaly, or palpable masses. EXTREMITIES: Postop dressing and splint noted on left leg. There is 2+ pitting pretibial edema left leg. There is edema laterally around left knee without erythema. NEUROLOGICAL: Obtunded, possibly of speech without dysarthria, no facial droop, no obvious unilateral weakness SKIN: warm, dry, no rash Objective Labs Result Diagrams: 10/17/19 12:19 10/17/19 12:48 Labs: Laboratory Results - last 24 hr 10/17/19 10/17/19 12:19 12:48 Hgb 6.8 L* Hct 20.6 L* Blood Type A Negative Antibody Screen Negative Crossmatch See Detail Assessment & Plan Assessment & Plan narrative: Patient is 74-year-old postop orthopedic surgery female who became acutely unresponsive. CBG 65, BP 90s systolic, acutely anemic with hemoglobin 6.8, also acutely hyperkalemia with acute renal failure. 1. Acute unresponsiveness, encephalopathy on postop day 3. -this is likely secondary to acute severe anemia and hypotension, but also possibly exacerbated by acute hypoglycemia and renal failure; patient remained obtunded after D50 and correction of hypoglycemia; EKG without acute findings; pulmonary embolism in differential diagnosis but unlikely with absence of hypoxemia or tachycardia or complaints of chest pain; Narcan not provided as her last oxycodone dose was 7 hours ago and should have worn off by now; infection unlikely with absence of fever, lung infiltrate or elevated WBC -provide normal saline bolus and transfusions to correct anemia -telemetry monitoring -obtained urinalysis -Nuno catheter to better monitor urine output while up tended and in acute renal failure -keep NPO until more responsive 2. Acute blood loss anemia postop day 3. -this is due to femur fracture after recent left knee replacement -transfuse 2 units PRBC -repeat CBC in a.m. 3. Acute kidney injury postop day 3 -BUN 66, creatinine 2.10, this is likely due to volume depletion from blood loss, patient's baseline BUN is 35 and creatinine 1.20 on 10/05/2019 -hold antihypertensives (losartan and HCTZ) -IV fluids and transfusions to treat volume depletion -repeat potassium at 8:00 p.m. and a BMP in a.m. 4. Acute hyperkalemia secondary to renal failure -treat volume depletion and hold antihypertensives -patient's baseline serum potassium was 5.5, which is mildly elevated, on October 05, 2019 and it might be prudent to lower her losartan dose from 100 mg to 50 mg daily -telemetry monitoring
[2019-10-17 13:57] LABS: Potassium 6.5 mmol/L (3.4-5.1)
--- NOTE | 2019-10-17 14:00 | PC.NURSE ---
Day shift: Reported K+ value of 6.[address] Pineda and orders placed for telemetry.
--- NOTE | 2019-10-17 14:07 | P.PN_ITS ---
Subjective Subjective Date Patient Seen: 10/17/19 Time Patient Seen: 14:07 Interval history: Rapid response called long patient prior to me seeing the patient this afternoon. Patient was found to be unarousable. Hospitalist has consulted on the patient. Patient is drowsy but arousable. Having mild pain. No fever /chills. No nausea /vomiting. She denies being short of breath or having chest pain. Exam Vital Signs (past 8 hours): - 10/17/19 08:00 Temperature 98 F Pulse Rate 63 Respiratory Rate 18 Blood Pressure 125/47 L Pulse Oximetry 95 Oxygen Delivery Method Nasal Cannula Oxygen Flow Rate 0 Narrative Exam Narrative: 74-year-old female resting comfortably in no apparent distress. Again patient is drowsy but arousable, able to follow simple commands. Sensat ion grossly intact to light touch distal left lower extremity. Motor functions intact distal left lower extremity. The dressing is clean, dry and intact. The knee brace is ill-fitting along the distal lateral aspect. I did loosen the straps and will have physical therapy work on fitting the brace and/or extra padding. Objective Labs Result Diagrams: 10/17/19 12:19 10/17/19 12:48 Labs: Laboratory Results - last 24 hr 10/17/19 10/17/19 10/17/19 12:19 12:48 12:48 Hgb 6.8 L* Hct 20.6 L* Sodium 136 L Potassium 6.5 H* Chloride 103 Carbon Dioxide 26 BUN 66 H Creatinine 2.10 H Estimated GFR 23.0 L BUN/Creatinine Ratio 31.4 H Glucose 160 H Calcium 8.2 L Blood Type A Negative Antibody Screen Negative Crossmatch See Detail Assessment & Plan Post-op Postoperative Procedures: Procedures Operation Date: 10/14/19 12:15 Actual Procedures Side Surgeon p Intramedullary Nailing Femur Distal Left Bill Rios MD Postop day 3 status post retrograde femoral nail, left leg secondary to supracondylar femur fracture above left total knee arthroplasty. Patient seen by hospitalist during rapid response earlier today. See hospitalist note regarding further treatment recommendations. Patient will continue to be in hinged knee brace. Continue knee range of motion exercises. Toe-touch weight-bearing for least 4 weeks after surgery.
[2019-10-17 14:11] LABS: PCO2 ABG 51.4 mmHg (35-45); pH ABG 7.29 (7.35-7.45)
[2019-10-17 14:12] LABS: Fractionated Inspired Oxygen 100; HCO3 ABG 25 mmol/L (22-26); Oxygen Saturation ABG 100 % (95-100); PO2 ABG 290 mmHg (80-100); TCO2 ABG 26 mmol/L (21-31)
[2019-10-17 14:17] LABS: Creatine Kinase 23 U/L (30-135)
[2019-10-17] MEDS: SODIUM CHLORIDE 0.9% 1,000 ML 1000 ML IV (14:22)
[2019-10-17 14:30] LABS: Troponin I < 0.012 ng/mL (0.01-0.034)
[2019-10-17 14:37] LABS: Add Manual Diff / Slide Review NO; Basophils Percent Auto 0.2 % (0-2); Eosinophils Percent Auto 5.6 % (2-4); Lymphocytes Percent Auto 16.1 % (25-40); Monocytes Percent Auto 10.5 % (3-14); Neutrophils Absolute Auto 4300 /uL (1500-7000); Neutrophils Percent Auto 67.6 % (50-75); White Blood Cell Count 6.4 X10^3/uL (4.5-11.0)
--- NOTE | 2019-10-17 15:14 | PT.IPTN ---
Current Diagnoses Other fracture of lower end of left femur, initial encounter for closed fracture (10/14/19) Presence of right artificial knee joint (10/14/19) Surgery Performed Operation Date: 10/14/19 12:15 Actual Procedures p Intramedullary Nailing Femur Distal(Left) - Bill Rios MD Physical Therapy Treatment Note M2 PT-IP Current Condition Start: 10/15/19 12:38 Freq: NEEDED Status: Active Protocol: Document 10/15/19 11:20 AB (Rec: 10/15/19 13:11 AB [id number]) Physical Therapy Current Condition Current Condition Evaluation Date 10/15/19 Treatment Diagnosis L supracondylar femur fx able TKA s/p femoral nail; difficulty in walking Onset Date 10/14/19 Precautions Brace L knee hinge brace Other Precautions falls Weight Bearing Status Weight Bearing Status Touch Down Weight Bearing Allowed Weight Bearing Amount (enter % TTWB LLE or #) (%) M3 PT-IP Subjective Start: 10/15/19 12:38 Freq: NEEDED Status: Active Protocol: Document 10/17/19 14:39 CLB (Rec: 10/17/19 16:43 CLB [id number]) Subjective Physical Therapy Visit Type Type Treatment Note Visit Start Time 14:39 Visit Stop Time 15:14 Total Visit Minutes 35 Notes Co-treated with PT Number of SPACE OFFICER Visits 2 Physical Therapy Visit Comments Patient Comments Pt willing to work with therapy. Therapy Pain Assessment Pain When Pain Assessed At Rest Pain Present Pain Present Denied Pain M4 PT-IP Mobility and Gait Start: 10/15/19 12:38 Freq: NEEDED Status: Active Protocol: Document 10/17/19 14:39 CLB (Rec: 10/17/19 16:43 CLB [id number]) PT-Transfer Assessment Comments Mobility Comments unable due to H/H Gait Assessment Comments Gait Comments unable due to H/H M5 PT-IP Objective Assessments Start: 10/15/19 12:38 Freq: NEEDED Status: Active Protocol: Document 10/15/19 11:20 AB (Rec: 10/15/19 13:11 AB [id number]) Orientation Orientation/Cognition Level of Alertness Lethargic Orientation Name Safety Awareness Decreased Safety Awareness Memory Description Short Term Impaired,Pocket Operator Impaired Gross Range of Motion Lower Extremity ROM Assessment Left Impaired Impairments pain limiting mobility; L knee on hinge brace Strength Lower Extremity Strength Assessment Left Impaired Knee 3-/5 Ankle 3+/5 Sensation Assessment Sensation Gross Sensation Right LE Impaired Light Touch Impaired Proprioception (Position) Impaired Sensation Description Numbness Muscle Tone Muscle Tone WNL No M6 PT-IP Treatment Start: 10/15/19 12:38 Freq: NEEDED Status: Active Protocol: Document 10/17/19 14:39 CLB (Rec: 10/17/19 16:43 CLB [id number]) Physical Therapy Treatment Exercises Exercises Ankle Pumps,Heel Slides, Straight Leg Raises,Supine Hip Abduction,Short Arc Quads M7 PT-IP Assessment and Plan Start: 10/15/19 12:38 Freq: NEEDED Status: Active Protocol: Document 10/17/19 14:39 CLB (Rec: 10/17/19 16:43 CLB [id number]) PT Summary Assessment and Plan Summary Impairments Pain,ROM,Strength,Balance, Coordination,Sensation,Tone, Cognition,Bed Mobility, Transfers,Gait,Activity Tolerance Progress Towards Goals Slow Progress due to Medical Issues Assessment Summary Pt unable to get OOB due to H/ H. PROM was performed and brace was adjusted for comfort . Pt awake for treat but was unable to actively move LLE. Pt continues to have decreased sensation of LLE below the knee. Goals Bed Mobility Goal Minimal Assistance Transfer Goal Minimal Assistance,Front Wheeled Walker Gait Distance 25 Days to Meet Goals 10 Frequency of Treatment Frequency Of Treatment Twice a Day Treatment Plan Physical Therapy Treatment Plan Bed Mobility Training,Transfer Training,Gait Training, Therapeutic Exercise,Balance Retraining,Post Op Education, Discharge Planning,Hot or Cold Pack,Neuromuscular Re-ed, Coordination Retraining,Manual Therapy Other Recommendations and Next Treatment ROM, transfers as able Focus Recommendations To Nursing Amount of Assist Needed 1 Person Assist Discharge Recommendations PT Discharge Recommendations SNF Rehab
[2019-10-17] MEDS: ROPINIROLE 1 MG TABLET PO ×2 (16:13→22:55)
[2019-10-17 18:39] LABS: Appearance Urine UA CLEAR; Bilirubin Urine UA NEGATIVE (NEGATIVE); Color Urine UA YELLOW; Glucose Urine UA NEGATIVE (Negative); Ketones Urine UA NEGATIVE (NEGATIVE); Leukocyte Esterase Urine UA NEGATIVE (NEGATIVE); Nitrite Urine UA NEGATIVE (Negative); Occult Blood Urine UA NEGATIVE (Negative); Protein Urine UA NEGATIVE (Negative); Specific Gravity Urine UA <=1.005 (1.000-1.035); Urobilinogen Urine UA 0.2 E.U./dL (0.2)
[2019-10-17 18:55] LABS: Bacteria Urine Occasional (0-1); Culture Indicated Urine Specimen Cultured; RBC Urine 1-5/HPF (0-5/HPF); Renal Epithelial Cells Urine 0-1/HPF (0-1/HPF); Squamous Epithelial Cell Urine 0-1 /HPF (0-5/HPF); WBC Urine 5-10/HPF (0-5/HPF)
--- NOTE | 2019-10-17 20:10 | PC.NURSE ---
Addendum entered by Megan Jacobson R.N. 10/18/19 00:01: called to relay that patient has adverse effects from narcotics (visual disturbances) and they both agree that they do not want pt to take narcotics. Original Note: # . Call to help patient relax. lives in [place] and is planning on coming over tomorrow 10/18.
--- NOTE | 2019-10-17 20:12 | PC.NURSE ---
Addendum entered by Megan Jacobson R.N. 10/18/19 00:00: Started new PIV in left forearm and infusing D10 per order. 2nd unit PRBC completed around 2339. pt tolerated well. Addendum entered by Megan Jacobson R.N. 10/17/19 20:33: PRB unit 1 completed at 2033, pt tolerated well. CBG 50, BP 100/46, HR 56 Addendum entered by Megan Jacobson R.N. 10/17/19 20:25: left forearm PIV compromised turning patient repositioning. DC'ed (pt tolerated well) and VICENTA Pate started a new PIV in right forearm, 20g. pt tolerated okay, yelled out a ton that she was in pain, but quickly calmed down when intervention was completed. Original Note: Evening shift pt alert and oriented to self, very forgetful. Pleasant, but teary and scared of most interventions. Steve is in [place] and a phone call away. Son Emil lives in [place]. plans to come in tomorrow. At start of shift, pt completed NS bolus from previous shift. Pt was confused and unable to answer questions appropriately, CBG 53. Encouraged juice and pushed 50% dextrose into left forearm PIV. pt became more alert slowly. pt got teary and unconsoleable when she found out she needed a blood transfusion and stated multiple times that you are trying to kill me. We were able to get on phone. Steve was able to talked to pt and calm her down. He gave verbal consent for blood transfusion over the phone to Neno. We were also able to get patient to sign consent form and it is in pt chart. Blood products started around 1730. Nuno then placed around 1800 and UA sent to lab there after.
--- NOTE | 2019-10-17 20:27 | PC.NURSE ---
PAIN pt screaming out in pain and unable to associate number to it. Administered ibuprofen 400mg per ordered. pt screaming in pain 10 minutes later. Charge nurse and Annette both suggestion administering 0.5 IV Dilaudid. When I went back to the room, pt on phone with . pt passed me the phone and I spoke with . 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 asked if we could only give her over the counter medications to manage pain. When I asked the patient about pain level, she stated that she was Fine. A little sore, but I don't want anything. pt agreed to manage pain with OTC and declined opened Dilaudid.
[2019-10-17 20:53] LABS: BUN Creatinine Ratio 28.2 (6-22); Blood Urea Nitrogen 62 mg/dL (7-17); Calcium 8.4 mg/dL (8.4-10.2); Carbon Dioxide 26 mmol/L (22-32); Chloride 103 mmol/L (98-107); Estimated Glomerular Filt Rate 21.8 mL/min (>60); HEMOLYSIS < 15 (0-50); Sodium 135 mmol/L (137-145)
[2019-10-17 20:54] LABS: Potassium 5.9 mmol/L (3.4-5.1)
[2019-10-17 20:56] LABS: Glucose 41 mg/dL (80-110)
--- NOTE | 2019-10-17 21:07 | PC.NURSE ---
BLOOD SUGARS pt CBG at 1600 was 53, administered Dextrose 50% and juice. CBG at 1630 was 149. CBG at 2030 was 50, administered another D50% in PIV and 30 minutes later CBG was 181. Plan is to infuse blood in one PIV and to start a 2nd PIV for d10. pt being assessed for 2nd site currently
[2019-10-17] MEDS: DEXTROSE 10 % IN WATER 1,000 ML 125 ML IV (22:17)
--- NOTE | 2019-10-17 22:18 | PC.NURSE ---
D10 STARTED NOW, DELAYED FOR BLOOD TRANSFUSION AND NEW IV START X2 PTS SLEEPING NO DISTRESS NOTED.
[2019-10-17] MEDS: DOCUSATE 100 MG CAPSULE PO (22:53)
[2019-10-17] MEDS: ASPIRIN EC 81 MG TABLET PO (22:53)
[2019-10-17] MEDS: LATANOPROST 0.005% OPHTH 2.5 ML 1 DROPS EYE-BOTH (22:56)
[2019-10-17] MEDS: TIMOLOL 0.5% OPHTH 1 DROPS EYE-BOTH (22:56)
[2019-10-18 00:43] LABS: HEMOLYSIS < 15 (0-50)
[2019-10-18 00:53] LABS: Hemoglobin 8.1 g/dL (12.0-16.0); Potassium 6.1 mmol/L (3.4-5.1)
--- NOTE | 2019-10-18 01:07 | PC.NURSE ---
Addendum entered by Geno Garvin R.N. 10/18/19 06:43: Continues to talk to self about getting killed. Noted lab draw glucose was 54 so given crackers and juice and CBG now at 135. Annette GOODMAN, informed of 7.27kg weight gain. In room now hollering please, please, then states I can't breathe but sat is 96%. Remains very anxious. Addendum entered by Geno Garvin R.N. 10/18/19 05:53: Has been quiet when staff not in room but as soon as someone enters room she starts in with same scenario why are you doing this to me, is it because I'm going senile? I don't want to , I want to live. Whispers and gestures as though writing and when told no one else is around to hear you whispers yes they are. Continues to cry stating will you please stop this, you can stop this. Attempted to give morning dose of Protonix and patient refuses stating it's a poison pill. Now when RN outside room states just let me and crying. Haldol has been administered. Addendum entered by Geno Garvin R.N. 10/18/19 04:16: 0230-present time Patient has been calling out and crying stating she is in pain but when spoken to refuses to take any narcotics. Asking RN why we are torturing her. When told she is in the hospital refuses to believe staff. Very paranoid and accuses staff of trying to kill her. Did calm down for brief period of time but when took Kayexylate into patient she again started in with accusations that staff is torturing her. Became wild eyed while holding glass with medication in it and then took medicine and attempted to throw it at RN and stated you bitch. Had KNOCKER OFF come to talk with patient and she continued to cry and exhibit paranoid behavior stating her is trying to kill her and staff is trying to kill her. Thought water was poisoned. Unable to get patient to calm down. Kept repeating sha tem boku and when asked what that means she states I love you stating her has always been her one true love and now he is with another woman. Started whispering can he hear me? and gesturing like someone taking a knife and slitting her throat. Unable to reassure patient that she is not dying and no one is trying to kill her. Call placed to spouse and message left for him to return call. When he called back discussed situation with him and then transferred the call into patient's room. Overheard patient calling spouse you son of a bitch and how could you do this to me. [place] her accuse him of trying to kill her. After her conversation RN spoke to spouse and he reports he was unable to reorient or reassure her and gives verbal consent to try whatever medication KNOCKER OFF deems necessary to calm patient down. After ending call with spouse (RN in room) patient requested RN give her a hug and then requested we call police to have her and son arrested as they are trying to kill her. Provided reassurance again that everyone is only trying to help and that security is available if necessary. Discussed conversation with KNOCKER OFF. See new order Original Note: Patient is oriented only to self and birthdate; responses are delayed. Per evening RN son reported patient has dementia; unknown baseline. Breath sounds diminished but CTA with oxygen at 1L/min per NC with sat of 93%. HRR but bradycardic at 47 on telemetry; reading SB. Denies nausea. BT present and abdomen is soft; has not had a BM since 10/12. Indwelling catheter is patent; urine is clear yellow. Unable to move self in bed so needs to be repositioned q2h. Knee brace to left LE intact. KAYDEN dressing intact with zully wrap around knee. Complains of 8/10 pain but had both Tylenol and Ibuprofen at 2300 so unable to give 0100 scheduled dose as too soon between doses and patient refusing any narcotic options; repositioned and ice applied. 2+ edema in left LE and 1+ in right LE. CMS intact. Can lift left leg just slightly off bed. Fall risk score is high and bed alarm is activated.
[2019-10-18] MEDS: CALCIUM GLUCONATE 9.3 MEQ in SODIUM CHLORIDE 0.9% 50 ML 140 ML IV (02:47)
[2019-10-18] MEDS: DEXTROSE 50 % IN WATER 25 GM/50 ML SYRINGE IV (03:28)
[2019-10-18] MEDS: SODIUM CHLORIDE 0.9% FLUSH 10 ML IV ×3 (03:28→08:28)
[2019-10-18] MEDS: INSULIN REGULAR 100 UNIT/ML 3 ML VIAL 10 UNIT IV (03:33)
[2019-10-18] MEDS: FUROSEMIDE 20 MG/2 ML VIAL IV (04:28)
[2019-10-18 05:00] VITALS: BP 149/60; PULSE 60; RESP 16; TEMP 36.7; O2SAT 95
[2019-10-18 05:25] LABS: Add Manual Diff / Slide Review NO; Basophils Absolute Auto 0 /uL (0-100); Basophils Percent Auto 0.4 % (0-2); Eosinophils Absolute Auto 300 /uL (0-450); Hematocrit 26.1 % (36-46); Hemoglobin 8.8 g/dL (12.0-16.0); Lymphocytes Absolute Auto 700 /uL (1100-4500); Lymphocytes Percent Auto 12.5 % (25-40); Mean Corpuscular HGB Conc 33.8 % (30-36); Mean Corpuscular Hemoglobin 30.1 PG (26-34); Mean Corpuscular Volume 89.1 fL (80-100); Monocytes Absolute Auto 700 /uL (0-900); Monocytes Percent Auto 12.4 % (3-14); Neutrophils Absolute Auto 3700 /uL (1500-7000); Neutrophils Percent Auto 69.7 % (50-75); Platelet Count 229 X10^3/uL (150-400); Red Blood Cell Count 2.93 X10^6/uL (4.0-5.2); Red Cell Distribution Width 13.5 % (11.6-14.8); White Blood Cell Count 5.3 X10^3/uL (4.5-11.0)
[2019-10-18 05:27] LABS: BUN Creatinine Ratio 28.6 (6-22); Blood Urea Nitrogen 60 mg/dL (7-17); Calcium 9.3 mg/dL (8.4-10.2); Carbon Dioxide 24 mmol/L (22-32); Chloride 104 mmol/L (98-107); Glucose 54 mg/dL (80-110); HEMOLYSIS < 15 (0-50); Sodium 136 mmol/L (137-145)
[2019-10-18 05:29] LABS: Potassium 5.8 mmol/L (3.4-5.1)
[2019-10-18] MEDS: HALOPERIDOL 5 MG/ML VIAL IV (05:46)
--- NOTE | 2019-10-18 06:24 | PC.NURSE ---
SMOKE EATER note: floated patient's back between two pillows under her right and left side to alleviate pressure off of backside.
[2019-10-18 08:00] VITALS: BP 158/58; PULSE 69; RESP 16; TEMP 36.6; O2SAT 95
[2019-10-18] MEDS: ACETAMINOPHEN 325 MG TABLET 975 MG PO ×2 (08:16→14:32)
[2019-10-18] MEDS: DOCUSATE 100 MG CAPSULE PO (08:17)
[2019-10-18] MEDS: CITALOPRAM 20 MG TABLET PO (08:19)
[2019-10-18] MEDS: BRIMONIDINE 0.2% OPHTH 5 ML 1 DROPS EYE-BOTH (08:20)
[2019-10-18] MEDS: ROPINIROLE 1 MG TABLET PO ×2 (08:21→14:32)
[2019-10-18] MEDS: SIMVASTATIN 20 MG TABLET PO (08:28)
[2019-10-18] MEDS: DEXTROSE 10 % IN WATER 1,000 ML 75 ML IV (08:29)
--- NOTE | 2019-10-18 09:07 | PM.PN.1 ---
Subjective Subjective Date Patient Seen: 10/18/19 Interval history: Patient is 74-year-old postop orthopedic surgery female who became acutely unresponsive on 10/17/2019. CBG 65, BP 90s systolic, acutely anemic with hemoglobin 6.8, also acutely hyperkalemia with acute renal failure. 1. Acute encephalopathy on postop day 3, persistent. 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 Acute blood loss anemia postop day 3. -this is due to femur fracture after recent left knee replacement -transfused 2 units PRBC on 10/17/2019 with improvement in H&H -repeat CBC in a.m. 3. Acute kidney injury postop day 3 -significant bump in BUN and creatinine BUN 66, creatinine 2.10, likely due to volume depletion from blood loss, patient's baseline BUN is 35 and creatinine 1.20 on 10/05/2019 -hold antihypertensives (losartan and HCTZ) and NSAIDs (Celebrex) -maintain adequate volume status 4. Acute hyperkalemia secondary to renal failure -maintain hydration, IV Lasix as needed -patient's baseline serum potassium was 5.5, which is mildly elevated, on October 05, 2019 and it might be prudent to lower her losartan dose from 100 mg to 50 mg daily -telemetry monitoring 5. Acute hypoglycemia, persistent -persistently hypoglycemic, receiving D50 IV as needed, on D10 IV drip -patient's glipizide was discontinued on 10/17/2019 and will take some time to wear off in setting of acute renal failure 6. Volume overload -patient was dyspneic overnight, with evidence of pulmonary edema on x-ray, and significantly up on her weight since admission -continue Lasix 20 mg to 40 mg IV as needed while maintaining D10 IV drip for hypoglycemia 7. Bradycardia -noted at times bradycardic with heart rate dipping into the 40s but in sinus rhythm and maintaining BP, currently heart rate in the 60s in sinus rhythm, at this time bradycardia appears asymptomatic and can be monitored, she is not on any AV blocking agents -continue patient monitor Exam Vital Signs (past 8 hours): - 10/18/19 05:00 10/18/19 08:00 Temperature 98.0 F 97.8 F Pulse Rate 60 69 Respiratory Rate 16 16 Blood Pressure 149/60 H 158/58 H Pulse Oximetry 95 95 Oxygen Delivery Method Nasal Cannula Oxygen Flow Rate 0 Objective Labs Result Diagrams: 10/18/19 04:54 10/18/19 04:54 Labs: Laboratory Results - last 24 hr 10/17/19 10/17/19 10/17/19 12:19 12:19 12:48 WBC 6.4 RBC Hgb 6.8 L* Hct 20.6 L* MCV MCH MCHC RDW Plt Count Neut % (Auto) 67.6 Lymph % (Auto) 16.1 L [place] % (Auto) 10.5 Eos % (Auto) 5.6 H Baso % (Auto) 0.2 Neut # (Auto) 4300 Lymph # (Auto) [place] # (Auto) Eos # (Auto) Baso # (Auto) ABG pH ABG pCO2 ABG pO2 ABG HCO3 ABG Total CO2 ABG O2 Saturation ABG Base Excess FiO2 Sodium 136 L Potassium 6.5 H* Chloride 103 Carbon Dioxide 26 BUN 66 H Creatinine 2.10 H Estimated GFR 23.0 L BUN/Creatinine Ratio 31.4 H Glucose 160 H Calcium 8.2 L Total Creatine Kinase CK-MB (CK-2) CK-MB (CK-2) Rel Index Troponin I Urine Color Urine Appearance Urine pH Ur Specific [place] Urine Protein Urine Glucose (UA) Urine Ketones Urine Occult Blood Urine Nitrate Urine Bilirubin Urine Urobilinogen Ur Leukocyte Esterase Urine RBC Urine WBC Ur Squamous Epith Cells Ur Renal Epithelial Cell Urine Bacteria Ur Culture Indicated? Blood Type Antibody Screen Crossmatch 10/17/19 10/17/19 10/17/19 12:48 12:48 13:02 WBC RBC Hgb Hct MCV MCH MCHC RDW Plt Count Neut % (Auto) Lymph % (Auto) [place] % (Auto) Eos % (Auto) Baso % (Auto) Neut # (Auto) Lymph # (Auto) [place] # (Auto) Eos # (Auto) Baso # (Auto) ABG pH 7.29 L ABG pCO2 51.4 H ABG pO2 290 H* ABG HCO3 25 ABG Total CO2 26 ABG O2 Saturation 100 ABG Base Excess -2.0 FiO2 100 Sodium Potassium Chloride Carbon Dioxide BUN Creatinine Estimated GFR BUN/Creatinine Ratio Glucose Calcium Total Creatine Kinase 23 L CK-MB (CK-2) TNP CK-MB (CK-2) Rel Index TNP Troponin I < 0.012 Urine Color Urine Appearance Urine pH Ur Specific [place] Urine Protein Urine Glucose (UA) Urine Ketones Urine Occult Blood Urine Nitrate Urine Bilirubin Urine Urobilinogen Ur Leukocyte Esterase Urine RBC Urine WBC Ur Squamous Epith Cells Ur Renal Epithelial Cell Urine Bacteria Ur Culture Indicated? Blood Type A Negative Antibody Screen Negative Crossmatch See Detail 10/17/19 10/17/19 10/18/19 18:10 20:31 00:25 WBC RBC Hgb 8.1 L Hct MCV MCH MCHC RDW Plt Count Neut % (Auto) Lymph % (Auto) [place] % (Auto) Eos % (Auto) Baso % (Auto) Neut # (Auto) Lymph # (Auto) [place] # (Auto) Eos # (Auto) Baso # (Auto) ABG pH ABG pCO2 ABG pO2 ABG HCO3 ABG Total CO2 ABG O2 Saturation ABG Base Excess FiO2 Sodium 135 L Potassium 5.9 H Chloride 103 Carbon Dioxide 26 BUN 62 H Creatinine 2.20 H Estimated GFR 21.8 L BUN/Creatinine Ratio 28.2 H Glucose 41 L* D Calcium 8.4 Total Creatine Kinase CK-MB (CK-2) CK-MB (CK-2) Rel Index Troponin I Urine Color Yellow Urine Appearance Clear Urine pH 5.0 Ur Specific [place] <=1.005 Urine Protein Negative Urine Glucose (UA) Negative Urine Ketones Negative Urine Occult Blood Negative Urine Nitrate Negative Urine Bilirubin Negative Urine Urobilinogen 0.2 Ur Leukocyte Esterase Negative Urine RBC 1-5/hpf Urine WBC 5-10/hpf H Ur Squamous Epith Cells 0-1 /hpf Ur Renal Epithelial Cell 0-1/hpf Urine Bacteria Occasional (0-1) Ur Culture Indicated? Specimen cultured Blood Type Antibody Screen Crossmatch 10/18/19 10/18/19 10/18/19 00:25 04:54 04:54 WBC 5.3 RBC 2.93 L Hgb 8.8 L Hct 26.1 L MCV 89.1 MCH 30.1 MCHC 33.8 RDW 13.5 Plt Count 229 Neut % (Auto) 69.7 Lymph % (Auto) 12.5 L [place] % (Auto) 12.4 Eos % (Auto) 5.0 H Baso % (Auto) 0.4 Neut # (Auto) 3700 Lymph # (Auto) 700 L [place] # (Auto) 700 Eos # (Auto) 300 Baso # (Auto) 0 ABG pH ABG pCO2 ABG pO2 ABG HCO3 ABG Total CO2 ABG O2 Saturation ABG Base Excess FiO2 Sodium 136 L Potassium 6.1 H 5.8 H Chloride 104 Carbon Dioxide 24 BUN 60 H Creatinine 2.10 H Estimated GFR 23.0 L BUN/Creatinine Ratio 28.6 H Glucose 54 L Calcium 9.3 Total Creatine Kinase CK-MB (CK-2) CK-MB (CK-2) Rel Index Troponin I Urine Color Urine Appearance Urine pH Ur Specific [place] Urine Protein Urine Glucose (UA) Urine Ketones Urine Occult Blood Urine Nitrate Urine Bilirubin Urine Urobilinogen Ur Leukocyte Esterase Urine RBC Urine WBC Ur Squamous Epith Cells Ur Renal Epithelial Cell Urine Bacteria Ur Culture Indicated? Blood Type Antibody Screen Crossmatch
[2019-10-18] MEDS: FUROSEMIDE 40 MG/4 ML VIAL IV (09:13)
[2019-10-18] MEDS: HYDROMORPHONE 1 MG INJ IV (09:13)
--- NOTE | 2019-10-18 10:45 | PT.IPTN ---
Current Diagnoses Other fracture of lower end of left femur, initial encounter for closed fracture (10/14/19) Presence of right artificial knee joint (10/14/19) Surgery Performed Operation Date: 10/14/19 12:15 Actual Procedures p Intramedullary Nailing Femur Distal(Left) - Bill Rios MD Physical Therapy Treatment Note M2 PT-IP Current Condition Start: 10/15/19 12:38 Freq: NEEDED Status: Active Protocol: Document 10/15/19 11:20 AB (Rec: 10/15/19 13:11 AB [id number]) Physical Therapy Current Condition Current Condition Evaluation Date 10/15/19 Treatment Diagnosis L supracondylar femur fx able TKA s/p femoral nail; difficulty in walking Onset Date 10/14/19 Precautions Brace L knee hinge brace Other Precautions falls Weight Bearing Status Weight Bearing Status Touch Down Weight Bearing Allowed Weight Bearing Amount (enter % TTWB LLE or #) (%) M3 PT-IP Subjective Start: 10/15/19 12:38 Freq: NEEDED Status: Active Protocol: Document 10/18/19 11:45 CLB (Rec: 10/18/19 12:06 CLB [id number]) Subjective Physical Therapy Visit Type Type Patient Unavailable Notes Pt had rough night, pt sleeping and RN requested she stay asleep at this time. Will check back with pt in afternoon. M4 PT-IP Mobility and Gait Start: 10/15/19 12:38 Freq: NEEDED Status: Active Protocol: Document 10/17/19 14:39 CLB (Rec: 10/17/19 16:43 CLB [id number]) PT-Transfer Assessment Comments Mobility Comments unable due to H/H Gait Assessment Comments Gait Comments unable due to H/H M5 PT-IP Objective Assessments Start: 10/15/19 12:38 Freq: NEEDED Status: Active Protocol: Document 10/15/19 11:20 AB (Rec: 10/15/19 13:11 AB [id number]) Orientation Orientation/Cognition Level of Alertness Lethargic Orientation Name Safety Awareness Decreased Safety Awareness Memory Description Short Term Impaired,Shelter Impaired Gross Range of Motion Lower Extremity ROM Assessment Left Impaired Impairments pain limiting mobility; L knee on hinge brace Strength Lower Extremity Strength Assessment Left Impaired Knee 3-/5 Ankle 3+/5 Sensation Assessment Sensation Gross Sensation Right LE Impaired Light Touch Impaired Proprioception (Position) Impaired Sensation Description Numbness Muscle Tone Muscle Tone WNL No M6 PT-IP Treatment Start: 10/15/19 12:38 Freq: NEEDED Status: Active Protocol: Document 10/17/19 14:39 CLB (Rec: 10/17/19 16:43 CLB [id number]) Physical Therapy Treatment Exercises Exercises Ankle Pumps,Heel Slides, Straight Leg Raises,Supine Hip Abduction,Short Arc Quads M7 PT-IP Assessment and Plan Start: 10/15/19 12:38 Freq: NEEDED Status: Active Protocol: Document 10/17/19 14:39 CLB (Rec: 10/17/19 16:43 CLB [id number]) PT Summary Assessment and Plan Summary Impairments Pain,ROM,Strength,Balance, Coordination,Sensation,Tone, Cognition,Bed Mobility, Transfers,Gait,Activity Tolerance Progress Towards Goals Slow Progress due to Medical Issues Assessment Summary Pt unable to get OOB due to H/ H. PROM was performed and brace was adjusted for comfort . Pt awake for treat but was unable to actively move LLE. Pt continues to have decreased sensation of LLE below the knee. Goals Bed Mobility Goal Minimal Assistance Transfer Goal Minimal Assistance,Front Wheeled Walker Gait Distance 25 Days to Meet Goals 10 Frequency of Treatment Frequency Of Treatment Twice a Day Treatment Plan Physical Therapy Treatment Plan Bed Mobility Training,Transfer Training,Gait Training, Therapeutic Exercise,Balance Retraining,Post Op Education, Discharge Planning,Hot or Cold Pack,Neuromuscular Re-ed, Coordination Retraining,Manual Therapy Other Recommendations and Next Treatment ROM, transfers as able Focus Recommendations To Nursing Amount of Assist Needed 1 Person Assist Discharge Recommendations PT Discharge Recommendations SNF Rehab
--- NOTE | 2019-10-18 11:00 | PC.NURSE ---
Day shift: Pt confused this AM. Talking about My foced me to have sex with his best friend. Pt was talking about this last night per RN report as well as this morning. Talked with Dr Pineda about her state of mind and per his instructions medicated Pt with 1mg IV Dilaudid for pain. Approx 20 minutes later Pt was able to sleep and is currently sleeping. Spouse has been updated by Dr Pineda and spouse in in room for support. Will continue to monitor. Call light in reach and bed alarm is on.
[2019-10-18] MEDS: HYDROMORPHONE 0.5 MG INJ IV ×5 (11:18→21:58)
[2019-10-18 12:00] VITALS: BP 104/61; PULSE 57; RESP 18; TEMP 36.7; O2SAT 93
--- NOTE | 2019-10-18 13:08 | PC.NURSE ---
Day shift: Pt resting/sleeping at tthis time. HR [address] Pineda notified. Called [facility] and reported NSR. Tlaked with Pt's spouse and suggested that Pt may benefit with sleep study/CPAP when she is feeling better. PPP and radial pulses present. BP taken on rt calf 125/48. Pt did wake to voice but fell back asleep. Call light in reach. Bed alarm is on. Door to room open with line of site to this RN station. Pt's spouse in room for support.
--- NOTE | 2019-10-18 13:24 | PT.IPTN ---
Current Diagnoses Other fracture of lower end of left femur, initial encounter for closed fracture (10/14/19) Presence of right artificial knee joint (10/14/19) Surgery Performed Operation Date: 10/14/19 12:15 Actual Procedures p Intramedullary Nailing Femur Distal(Left) - Bill Rios MD Physical Therapy Treatment Note M2 PT-IP Current Condition Start: 10/15/19 12:38 Freq: NEEDED Status: Active Protocol: Document 10/15/19 11:20 AB (Rec: 10/15/19 13:11 AB [id number]) Physical Therapy Current Condition Current Condition Evaluation Date 10/15/19 Treatment Diagnosis L supracondylar femur fx able TKA s/p femoral nail; difficulty in walking Onset Date 10/14/19 Precautions Brace L knee hinge brace Other Precautions falls Weight Bearing Status Weight Bearing Status Touch Down Weight Bearing Allowed Weight Bearing Amount (enter % TTWB LLE or #) (%) M3 PT-IP Subjective Start: 10/15/19 12:38 Freq: NEEDED Status: Active Protocol: Document 10/18/19 13:56 CLB (Rec: 10/18/19 16:20 CLB [id number]) Subjective Physical Therapy Visit Type Type Treatment Note Visit Start Time 13:56 Visit Stop Time 13:24 Total Visit Minutes 28 Number of SAILMAKER Visits 3 Therapy Pain Assessment Pain When Pain Assessed During Exercise Pain Present Pain Present Pain Reported M4 PT-IP Mobility and Gait Start: 10/15/19 12:38 Freq: NEEDED Status: Active Protocol: Document 10/18/19 13:56 CLB (Rec: 10/18/19 16:20 CLB [id number]) PT-Transfer Assessment Comments Mobility Comments Unable due to sedation Gait Assessment Comments Gait Comments unable due to sedation M5 PT-IP Objective Assessments Start: 10/15/19 12:38 Freq: NEEDED Status: Active Protocol: Document 10/15/19 11:20 AB (Rec: 10/15/19 13:11 AB [id number]) Orientation Orientation/Cognition Level of Alertness Lethargic Orientation Name Safety Awareness Decreased Safety Awareness Memory Description Short Term Impaired,Ict Managers Impaired Gross Range of Motion Lower Extremity ROM Assessment Left Impaired Impairments pain limiting mobility; L knee on hinge brace Strength Lower Extremity Strength Assessment Left Impaired Knee 3-/5 Ankle 3+/5 Sensation Assessment Sensation Gross Sensation Right LE Impaired Light Touch Impaired Proprioception (Position) Impaired Sensation Description Numbness Muscle Tone Muscle Tone WNL No M6 PT-IP Treatment Start: 10/15/19 12:38 Freq: NEEDED Status: Active Protocol: Document 10/18/19 13:56 CLB (Rec: 10/18/19 16:20 CLB [id number]) Physical Therapy Treatment Exercises Exercises Ankle Pumps,Heel Slides, Straight Leg Raises,Supine Hip Abduction,Short Arc Quads M7 PT-IP Assessment and Plan Start: 10/15/19 12:38 Freq: NEEDED Status: Active Protocol: Document 10/18/19 13:56 CLB (Rec: 10/18/19 16:20 CLB [id number]) PT Summary Assessment and Plan Summary Impairments Pain,ROM,Strength,Balance, Coordination,Sensation,Tone, Cognition,Bed Mobility, Transfers,Gait,Activity Tolerance Progress Towards Goals Slow Progress due to Medical Issues Assessment Summary Pt with increased pain during ROM but pt unable to state. Pt O2 on 1.5L during tx with O2 dropping to 80% and HR 125 bpm . RN increased O2 to 3L and pt O2 remained WNL and HR ranged from 49-54 bpm. Pt very sleepy and was asleep through most of the session. Pt had pain response of eyes open and grimace but could not give scale. Pt present during tx. Pt stated pt has had numbness in LLE since her back surgery. Lowered bed, alarm on, call light and all other needs within reach, present in room. Goals Bed Mobility Goal Minimal Assistance Transfer Goal Minimal Assistance,Front Wheeled Walker Gait Distance 25 Days to Meet Goals 10 Frequency of Treatment Frequency Of Treatment Twice a Day Treatment Plan Physical Therapy Treatment Plan Bed Mobility Training,Transfer Training,Gait Training, Therapeutic Exercise,Balance Retraining,Post Op Education, Discharge Planning,Hot or Cold Pack,Neuromuscular Re-ed, Coordination Retraining,Manual Therapy Other Recommendations and Next Treatment ROM, transfers as able Focus Recommendations To Nursing Amount of Assist Needed 1 Person Assist Discharge Recommendations PT Discharge Recommendations SNF Rehab
--- NOTE | 2019-10-18 13:32 | P.PN_ITS ---
Subjective Subjective Interval history: Patient is very drowsy, arousable, but unable to have a significant conversation. Patient complains of pain all over. Exam Vital Signs (past 8 hours): - 10/18/19 08:00 10/18/19 12:00 Temperature 97.8 F 98.1 F Pulse Rate 69 57 L Respiratory Rate 16 18 Blood Pressure 158/58 H 104/61 Pulse Oximetry 95 93 Oxygen Delivery Method Nasal Cannula Oxygen Flow Rate 0 Narrative Exam Narrative: 74 year old pale obtunded female is lying in bed in obvious discomfort, in mild distress. A&Ox1. Dressing on L knee CDI, zully wrap and locking brace in place. L knee mild swelling, mild warmth, no erythema, rashes, lesions or ecchymosis. Dorsalis pedis 2+ LE bl. Capillary refill <2sec LE bl. Calves warm, soft, compressible, nttp. Objective Labs Result Diagrams: 10/18/19 04:54 10/18/19 04:54 Labs: Laboratory Results - last 24 hr 10/17/19 10/17/19 10/17/19 12:19 12:19 12:48 WBC 6.4 RBC Hgb 6.8 L* Hct 20.6 L* MCV MCH MCHC RDW Plt Count Neut % (Auto) 67.6 Lymph % (Auto) 16.1 L [place] % (Auto) 10.5 Eos % (Auto) 5.6 H Baso % (Auto) 0.2 Neut # (Auto) 4300 Lymph # (Auto) [place] # (Auto) Eos # (Auto) Baso # (Auto) ABG pH ABG pCO2 ABG pO2 ABG HCO3 ABG Total CO2 ABG O2 Saturation ABG Base Excess FiO2 Sodium 136 L Potassium 6.5 H* Chloride 103 Carbon Dioxide 26 BUN 66 H Creatinine 2.10 H Estimated GFR 23.0 L BUN/Creatinine Ratio 31.4 H Glucose 160 H Calcium 8.2 L Total Creatine Kinase CK-MB (CK-2) CK-MB (CK-2) Rel Index Troponin I Urine Color Urine Appearance Urine pH Ur Specific [place] Urine Protein Urine Glucose (UA) Urine Ketones Urine Occult Blood Urine Nitrate Urine Bilirubin Urine Urobilinogen Ur Leukocyte Esterase Urine RBC Urine WBC Ur Squamous Epith Cells Ur Renal Epithelial Cell Urine Bacteria Ur Culture Indicated? Blood Type Antibody Screen Crossmatch 10/17/19 10/17/19 10/17/19 12:48 12:48 13:02 WBC RBC Hgb Hct MCV MCH MCHC RDW Plt Count Neut % (Auto) Lymph % (Auto) [place] % (Auto) Eos % (Auto) Baso % (Auto) Neut # (Auto) Lymph # (Auto) [place] # (Auto) Eos # (Auto) Baso # (Auto) ABG pH 7.29 L ABG pCO2 51.4 H ABG pO2 290 H* ABG HCO3 25 ABG Total CO2 26 ABG O2 Saturation 100 ABG Base Excess -2.0 FiO2 100 Sodium Potassium Chloride Carbon Dioxide BUN Creatinine Estimated GFR BUN/Creatinine Ratio Glucose Calcium Total Creatine Kinase 23 L CK-MB (CK-2) TNP CK-MB (CK-2) Rel Index TNP Troponin I < 0.012 Urine Color Urine Appearance Urine pH Ur Specific [place] Urine Protein Urine Glucose (UA) Urine Ketones Urine Occult Blood Urine Nitrate Urine Bilirubin Urine Urobilinogen Ur Leukocyte Esterase Urine RBC Urine WBC Ur Squamous Epith Cells Ur Renal Epithelial Cell Urine Bacteria Ur Culture Indicated? Blood Type A Negative Antibody Screen Negative Crossmatch See Detail 10/17/19 10/17/19 10/18/19 18:10 20:31 00:25 WBC RBC Hgb 8.1 L Hct MCV MCH MCHC RDW Plt Count Neut % (Auto) Lymph % (Auto) [place] % (Auto) Eos % (Auto) Baso % (Auto) Neut # (Auto) Lymph # (Auto) [place] # (Auto) Eos # (Auto) Baso # (Auto) ABG pH ABG pCO2 ABG pO2 ABG HCO3 ABG Total CO2 ABG O2 Saturation ABG Base Excess FiO2 Sodium 135 L Potassium 5.9 H Chloride 103 Carbon Dioxide 26 BUN 62 H Creatinine 2.20 H Estimated GFR 21.8 L BUN/Creatinine Ratio 28.2 H Glucose 41 L* D Calcium 8.4 Total Creatine Kinase CK-MB (CK-2) CK-MB (CK-2) Rel Index Troponin I Urine Color Yellow Urine Appearance Clear Urine pH 5.0 Ur Specific [place] <=1.005 Urine Protein Negative Urine Glucose (UA) Negative Urine Ketones Negative Urine Occult Blood Negative Urine Nitrate Negative Urine Bilirubin Negative Urine Urobilinogen 0.2 Ur Leukocyte Esterase Negative Urine RBC 1-5/hpf Urine WBC 5-10/hpf H Ur Squamous Epith Cells 0-1 /hpf Ur Renal Epithelial Cell 0-1/hpf Urine Bacteria Occasional (0-1) Ur Culture Indicated? Specimen cultured Blood Type Antibody Screen Crossmatch 10/18/19 10/18/19 10/18/19 00:25 04:54 04:54 WBC 5.3 RBC 2.93 L Hgb 8.8 L Hct 26.1 L MCV 89.1 MCH 30.1 MCHC 33.8 RDW 13.5 Plt Count 229 Neut % (Auto) 69.7 Lymph % (Auto) 12.5 L [place] % (Auto) 12.4 Eos % (Auto) 5.0 H Baso % (Auto) 0.4 Neut # (Auto) 3700 Lymph # (Auto) 700 L [place] # (Auto) 700 Eos # (Auto) 300 Baso # (Auto) 0 ABG pH ABG pCO2 ABG pO2 ABG HCO3 ABG Total CO2 ABG O2 Saturation ABG Base Excess FiO2 Sodium 136 L Potassium 6.1 H 5.8 H Chloride 104 Carbon Dioxide 24 BUN 60 H Creatinine 2.10 H Estimated GFR 23.0 L BUN/Creatinine Ratio 28.6 H Glucose 54 L Calcium 9.3 Total Creatine Kinase CK-MB (CK-2) CK-MB (CK-2) Rel Index Troponin I Urine Color Urine Appearance Urine pH Ur Specific [place] Urine Protein Urine Glucose (UA) Urine Ketones Urine Occult Blood Urine Nitrate Urine Bilirubin Urine Urobilinogen Ur Leukocyte Esterase Urine RBC Urine WBC Ur Squamous Epith Cells Ur Renal Epithelial Cell Urine Bacteria Ur Culture Indicated? Blood Type Antibody Screen Crossmatch Assessment & Plan Post-op Postoperative Procedures: Procedures Operation Date: 10/14/19 12:15 Actual Procedures Side Surgeon p Intramedullary Nailing Femur Distal Left Bill Rios MD Postoperative plan narrative: Discussed patient with hospitalist - patient's mental status has improved since yesterday. most likely encephalopathy due to multiple factors: hypoglycemia, anemia, postop pain and underlying mild dementia We appreciate internal medicine's recommendations for management Continue current pain management Continue PT as tolerated Patient will likely need to be discharged to a SNF Time Spent With Patient Time with patient: less than 15 minutes
[2019-10-18 15:20] VITALS: BMI 42.5
--- NOTE | 2019-10-18 15:36 | DIET.PN ---
Dietary Progress Note Assessment: 74y F admitted s/p procedure to fix fx femur c critical H&H and BG yesterday. Pt POs are low related to poor px control as pt only wants OTC tylenol/ibuprofen. HT: 152.4cm WT: 98.9kg (+7.3kg in 24h) BMI: 42.6 *No reported BM since 10/12/19 4L urine output today Labs: Hgb 8.1 L, K+ 5.8 H, BG 41-160, GFR 23 L MNA: 10 at risk Chaitanya: 16 Nutrition Diagnosis: Inadequate energy intake r/t aversion to food secondary to post surgical px aeb POs 0% for 2d, pt refusing narcotics, brittle BG 50-180. Interventions: Gave pt Apple Ensure as POs @ <25% for 2d. Pt spouse requests dinner of chicken noodle soup and jello as comfort food for pt tonight. Diet Order: CCD EER: 1600kcal, 100g PRO (1.1g/kg), 2.9L fluids Monitoring/Evaluations: watching labs and renal fxn, wt, if POs stay <75% for next three meals, will initiate ONS.
[2019-10-18 15:45] VITALS: BP 156/54; PULSE 57; RESP 16; TEMP 36.7; O2SAT 99
[2019-10-18 20:48] VITALS: BP 155/60; PULSE 59; RESP 18
[2019-10-18] MEDS: DEXTROSE 10 % IN WATER 1,000 ML 125 ML IV (23:49)
[2019-10-18 23:55] VITALS: BP 166/72; PULSE 59; RESP 20; TEMP 36.4; O2SAT 97
[2019-10-19] VITALS (8 sets, daily range): BP systolic 140–162; BP diastolic 56–88; PULSE 48–84; RESP 15–24; TEMP 36.6–37.3; O2SAT 93–96
[2019-10-19] MEDS: HYDROMORPHONE 0.5 MG INJ IV ×4 (00:13→13:37)
--- NOTE | 2019-10-19 00:59 | PC.NURSE ---
Addendum entered by Geno Garvin R.N. 10/19/19 05:51: Has continued to call out and states she is still in pain; medicated with additional IV Dilaudid. Addendum entered by Geno Garivn R.N. 10/19/19 04:49: Continues to be restless and calling out for staff but, until now, has denied pain. Currently stating pain is 7/10 so medicated with IV Dilaudid. Addendum entered by Geno Garvin R.N. 10/19/19 02:55: Patient calling for RN by name and asking am I going senile?, I just don't understand, when is it going to end? Asked if having pain and patient states I don't know. Had patient move her leg and she denied having any pain. Continues to make grunting noises and calling for RN by name frequently. Now remembers why she is in the hospital and knows Dr Rios did the surgery. Very pleasant but still not fully comprehending what is happening. Original Note: 0025 Patient in room calling out please, please. When asked if she is in pain states I'm not sure. FLACC score is 5 so medicated with IV Dilaudid. During assessment patient asking why are you doing this to me?. Is oriented to self, birthdate, age and day of week. Knew she was in the hospital when given choices. Breath sounds with expiratory wheeze in bilateral upper lobes. Oxygen at 2L/min per NC with sat of 96%. HRR but bradycardic in 50's; is on telemetry. Denies nausea. BT hypoactive; patient has not had BM since 10/12. Indwelling catheter is patent; urine clear, light yellow. Needing assistance to reposition q2h. KAYDEN dressing + zully wrap to left knee CDI; wearing knee brace. Has 2+ edema in left LE. Able to wiggle feet but not able to lift leg off bed. Good pedal pulses and capillary refill. Wearing calf SCD on right leg. Fall risk score is high and bed alarm is activated.
[2019-10-19] MEDS: PANTOPRAZOLE 20 MG TABLET PO (05:46)
[2019-10-19 05:52] LABS: BUN Creatinine Ratio 33.8 (6-22); Blood Urea Nitrogen 44 mg/dL (7-17); Calcium 9.2 mg/dL (8.4-10.2); Carbon Dioxide 26 mmol/L (22-32); Chloride 96 mmol/L (98-107); Glucose 221 mg/dL (80-110); HEMOLYSIS < 15 (0-50); Potassium 5.2 mmol/L (3.4-5.1); Sodium 131 mmol/L (137-145)
[2019-10-19 05:59] LABS: Add Manual Diff / Slide Review NO; Basophils Absolute Auto 0 /uL (0-100); Basophils Percent Auto 0.5 % (0-2); Eosinophils Absolute Auto 300 /uL (0-450); Eosinophils Percent Auto 5.8 % (2-4); Hematocrit 26.5 % (36-46); Hemoglobin 9.2 g/dL (12.0-16.0); Lymphocytes Absolute Auto 700 /uL (1100-4500); Lymphocytes Percent Auto 12.2 % (25-40); Mean Corpuscular HGB Conc 34.6 % (30-36); Mean Corpuscular Hemoglobin 30.4 PG (26-34); Mean Corpuscular Volume 87.9 fL (80-100); Monocytes Absolute Auto 500 /uL (0-900); Monocytes Percent Auto 9.7 % (3-14); Neutrophils Absolute Auto 3800 /uL (1500-7000); Neutrophils Percent Auto 71.8 % (50-75); Platelet Count 240 X10^3/uL (150-400); Red Blood Cell Count 3.01 X10^6/uL (4.0-5.2); Red Cell Distribution Width 13.5 % (11.6-14.8); White Blood Cell Count 5.3 X10^3/uL (4.5-11.0)
[2019-10-19] MEDS: ROPINIROLE 1 MG TABLET PO ×3 (08:33→20:23)
[2019-10-19] MEDS: TIMOLOL 0.5% OPHTH 1 DROPS EYE-BOTH ×2 (08:33→20:23)
[2019-10-19] MEDS: BRIMONIDINE 0.2% OPHTH 5 ML 1 DROPS EYE-BOTH ×2 (08:33→20:23)
[2019-10-19] MEDS: ASPIRIN EC 81 MG TABLET PO ×2 (08:34→20:22)
[2019-10-19] MEDS: DOCUSATE 100 MG CAPSULE PO ×2 (08:34→20:23)
[2019-10-19] MEDS: ACETAMINOPHEN 325 MG TABLET 975 MG PO ×3 (08:34→20:22)
[2019-10-19] MEDS: SIMVASTATIN 20 MG TABLET PO (08:34)
[2019-10-19] MEDS: CITALOPRAM 20 MG TABLET PO (08:34)
[2019-10-19] MEDS: SODIUM CHLORIDE 0.9% FLUSH 10 ML IV ×2 (08:35→20:24)
--- NOTE | 2019-10-19 10:12 | PM.PNPO.1 ---
Subjective Subjective Date Patient Seen: 10/19/19 Time Patient Seen: 10:12 Interval history: POD #5 s/p retrograde femoral nail, left leg secondary to supracondylar femur fracture above left total knee arthroplasty. Patient just moved in to bedside chair with bianca lift. She is still very drowsy today but able to respond to questions. Her reports that she looks a lot better today than she did yesterday. Not complaining of pain today. Blood sugar this morning was 212. Her blood pressures have been over 149 systolic overnight and this morning. She has a Nuno catheter in place. Hospitalist is helping manage comorbidities closely. Exam Vital Signs (past 8 hours): - 10/19/19 03:00 10/19/19 08:00 Temperature 98.1 F 98.8 F Pulse Rate 62 55 L Respiratory Rate 18 15 Blood Pressure 162/56 H 161/64 H Pulse Oximetry 96 95 Oxygen Delivery Method Nasal Cannula Oxygen Flow Rate 1 Narrative Exam Narrative: Patient is sitting in bedside chair in NAD. Patient hoyered into chair. [place] Dressing on L knee CDI and functioning. Jaswant wrap and hinged knee brace in place. She is able to actively dorsiflex and plantarflex. Calves are soft, compressible, and nontender bilaterally. Dorsalis pedis pulses are symmetrical. Objective Labs Result Diagrams: 10/19/19 05:06 10/19/19 05:06 Labs: Laboratory Results - last 24 hr 10/19/19 10/19/19 05:06 05:06 WBC 5.3 RBC 3.01 L Hgb 9.2 L Hct 26.5 L MCV 87.9 MCH 30.4 MCHC 34.6 RDW 13.5 Plt Count 240 Neut % (Auto) 71.8 Lymph % (Auto) 12.2 L [place] % (Auto) 9.7 Eos % (Auto) 5.8 H Baso % (Auto) 0.5 Neut # (Auto) 3800 Lymph # (Auto) 700 L [place] # (Auto) 500 Eos # (Auto) 300 Baso # (Auto) 0 Sodium 131 L Potassium 5.2 H Chloride 96 L Carbon Dioxide 26 BUN 44 H Creatinine 1.30 H Estimated GFR 40.0 L BUN/Creatinine Ratio 33.8 H Glucose 221 H D Calcium 9.2 Assessment & Plan Post-op Postoperative Procedures: Procedures Operation Date: 10/14/19 12:15 Actual Procedures Side Surgeon p Intramedullary Nailing Femur Distal Left Bill Rios MD Postop day 5 status post retrograde femoral nail, left leg secondary to supracondylar femur fracture above left total knee arthroplasty. Patient will continue to be in hinged knee brace. Continue knee range of motion exercises. Toe-touch weight-bearing for at least 4 weeks after surgery. Appreciate hospitalist managment of multiple comorbidities. Once patient is medically stable per hospitalist we can discuss discharge to longterm facility for continued care after surgery.
--- NOTE | 2019-10-19 12:19 | PT.IPTN ---
Current Diagnoses Other fracture of lower end of left femur, initial encounter for closed fracture (10/14/19) Presence of right artificial knee joint (10/14/19) Surgery Performed Operation Date: 10/14/19 12:15 Actual Procedures p Intramedullary Nailing Femur Distal(Left) - Bill Rios MD Physical Therapy Treatment Note M2 PT-IP Current Condition Start: 10/15/19 12:38 Freq: NEEDED Status: Active Protocol: Document 10/15/19 11:20 AB (Rec: 10/15/19 13:11 AB [id number]) Physical Therapy Current Condition Current Condition Evaluation Date 10/15/19 Treatment Diagnosis L supracondylar femur fx able TKA s/p femoral nail; difficulty in walking Onset Date 10/14/19 Precautions Brace L knee hinge brace Other Precautions falls Weight Bearing Status Weight Bearing Status Touch Down Weight Bearing Allowed Weight Bearing Amount (enter % TTWB LLE or #) (%) M3 PT-IP Subjective Start: 10/15/19 12:38 Freq: NEEDED Status: Active Protocol: Document 10/19/19 10:56 SUNDAR (Rec: 10/19/19 11:57 SUNDAR [id number]) Subjective Physical Therapy Visit Type Type Treatment Note Visit Start Time 10:56 Visit Stop Time 11:11 Total Visit Minutes 15 Notes Treatment supervised by KATE Cox. Number of SHOVEL ENGINEER Visits 4 Physical Therapy Visit Comments Patient Comments Pt agreeable to work with therapy, but is groggy. Therapy Pain Assessment Pain When Pain Assessed During Exercise Pain Present Pain Present Pain Reported Location Left Knee Pain Behaviors Facial Grimacing M4 PT-IP Mobility and Gait Start: 10/15/19 12:38 Freq: NEEDED Status: Active Protocol: Document 10/18/19 13:56 CLB (Rec: 10/18/19 16:20 CLB [id number]) PT-Transfer Assessment Comments Mobility Comments Unable due to sedation Gait Assessment Comments Gait Comments unable due to sedation M5 PT-IP Objective Assessments Start: 10/15/19 12:38 Freq: NEEDED Status: Active Protocol: Document 10/15/19 11:20 AB (Rec: 10/15/19 13:11 AB [id number]) Orientation Orientation/Cognition Level of Alertness Lethargic Orientation Name Safety Awareness Decreased Safety Awareness Memory Description Short Term Impaired,Fdc Impaired Gross Range of Motion Lower Extremity ROM Assessment Left Impaired Impairments pain limiting mobility; L knee on hinge brace Strength Lower Extremity Strength Assessment Left Impaired Knee 3-/5 Ankle 3+/5 Sensation Assessment Sensation Gross Sensation Right LE Impaired Light Touch Impaired Proprioception (Position) Impaired Sensation Description Numbness Muscle Tone Muscle Tone WNL No M6 PT-IP Treatment Start: 10/15/19 12:38 Freq: NEEDED Status: Active Protocol: Document 10/19/19 10:56 SUNDAR (Rec: 10/19/19 11:57 SUNDAR [id number]) Physical Therapy Treatment Exercises Exercises Ankle Pumps,Gluteal Sets,Quad Sets Other Treatments Other Treatment Performed Performed PROM and AAROM of L knee. M7 PT-IP Assessment and Plan Start: 10/15/19 12:38 Freq: NEEDED Status: Active Protocol: Document 10/19/19 10:56 SUNDAR (Rec: 10/19/19 11:57 SUNDAR [id number]) PT Summary Assessment and Plan Summary Impairments Pain,ROM,Strength,Balance, Coordination,Sensation,Tone, Cognition,Bed Mobility, Transfers,Gait,Activity Tolerance Progress Towards Goals Slow Progress due to Medical Issues Assessment Summary Pt has increased pn during PROM and AAROM of L knee. Able to perform ankle pumps, glute sets, and quad sets with repetitive verbal cueing. Encouraged pt to perform leg exercises while in bed and in chair. Pt left in chair with all needs met. Goals Bed Mobility Goal Minimal Assistance Transfer Goal Minimal Assistance,Front Wheeled Walker Gait Distance 25 Days to Meet Goals 10 Frequency of Treatment Frequency Of Treatment Twice a Day Treatment Plan Physical Therapy Treatment Plan Bed Mobility Training,Transfer Training,Gait Training, Therapeutic Exercise,Balance Retraining,Post Op Education, Discharge Planning,Hot or Cold Pack,Neuromuscular Re-ed, Coordination Retraining,Manual Therapy Other Recommendations and Next Treatment ROM, transfers as able Focus Recommendations To Nursing Amount of Assist Needed 1 Person Assist Discharge Recommendations PT Discharge Recommendations SNF Rehab Documentation reviewed by Brooke Samaniego PTA
--- NOTE | 2019-10-19 14:04 | PC.NURSE ---
Addendum entered by Zari Zepeda R.N. 10/19/19 15:00: Pt is slightly confused but Alert and awake. Pt only took half of her medication for increased potassium. She did take tylenol and requip fine. Pt had iv dilaudid last night a couple of times per shana shift Rn and tolerated medications well. Back to bed. Is close to having a bowel movement and given colace this morning. Addendum entered by Zari Zepeda R.N. 10/19/19 14:40: Pt given 0.5mg of iv dilaudid and became lethargic. She would not respond to this RN when trying to arouse her. Sternal rub performed and pt would wake up but still groggy. Given o.2mg of narcan and pt woke up immediately. Slightly confused but knew that Zari was a nurse and that she is in the hospital. Pt trying to have a bowel movement now. Will put her back to bed and then try to give her more drinks of xayexalate. Pt is A&Ox2. Original Note: Pt is more alert today but still confused. She complains of catheter pain and l.lower leg pain. Just given iv dilaudid and pt states that this has been helpful for both pains she has. Pt has a jose dressing to l.knee is cdi with brace in place. She is non weight bearing at this time. Not eating much at meals. Pts is supportive and helpful.
[2019-10-19] MEDS: SODIUM POLYSTYRENE SULFON/SORB 15 GM/60 ML CUP 30 GM PO (14:13)
[2019-10-19] MEDS: NALOXONE 0.4 MG/ML VIAL 0.2 MG IV (14:27)
--- NOTE | 2019-10-19 16:28 | PT.IPTN ---
Current Diagnoses Other fracture of lower end of left femur, initial encounter for closed fracture (10/14/19) Presence of right artificial knee joint (10/14/19) Surgery Performed Operation Date: 10/14/19 12:15 Actual Procedures p Intramedullary Nailing Femur Distal(Left) - Bill Rios MD Physical Therapy Treatment Note M2 PT-IP Current Condition Start: 10/15/19 12:38 Freq: NEEDED Status: Active Protocol: Document 10/15/19 11:20 AB (Rec: 10/15/19 13:11 AB [id number]) Physical Therapy Current Condition Current Condition Evaluation Date 10/15/19 Treatment Diagnosis L supracondylar femur fx able TKA s/p femoral nail; difficulty in walking Onset Date 10/14/19 Precautions Brace L knee hinge brace Other Precautions falls Weight Bearing Status Weight Bearing Status Touch Down Weight Bearing Allowed Weight Bearing Amount (enter % TTWB LLE or #) (%) M3 PT-IP Subjective Start: 10/15/19 12:38 Freq: NEEDED Status: Active Protocol: Document 10/19/19 16:01 SUNDAR (Rec: 10/19/19 16:24 SUNDAR [email or web address]) Subjective Physical Therapy Visit Type Type Treatment Note Visit Start Time 16:01 Visit Stop Time 16:14 Total Visit Minutes 13 Notes Treatment supervised by KATE Cox. Number of DIRECTOR [employer]ING Visits 5 Physical Therapy Visit Comments Patient Comments Pt is more alert and agreeable to work with therapy, but is experiencing restless legs and pain in L knee. Therapy Pain Assessment Pain When Pain Assessed During Exercise Pain Present Pain Present Pain Reported Location Left Knee Intensity 8 Scale Used Numeric (1 - 10) Pain Behaviors Facial Grimacing,Restlessness, Wincing Pain Management Techniques Modification of Treatment M4 PT-IP Mobility and Gait Start: 10/15/19 12:38 Freq: NEEDED Status: Active Protocol: Document 10/18/19 13:56 CLB (Rec: 10/18/19 16:20 CLB [id number]) PT-Transfer Assessment Comments Mobility Comments Unable due to sedation Gait Assessment Comments Gait Comments unable due to sedation M5 PT-IP Objective Assessments Start: 10/15/19 12:38 Freq: NEEDED Status: Active Protocol: Document 10/15/19 11:20 AB (Rec: 10/15/19 13:11 AB [id number]) Orientation Orientation/Cognition Level of Alertness Lethargic Orientation Name Safety Awareness Decreased Safety Awareness Memory Description Short Term Impaired,Knitter Machine Impaired Gross Range of Motion Lower Extremity ROM Assessment Left Impaired Impairments pain limiting mobility; L knee on hinge brace Strength Lower Extremity Strength Assessment Left Impaired Knee 3-/5 Ankle 3+/5 Sensation Assessment Sensation Gross Sensation Right LE Impaired Light Touch Impaired Proprioception (Position) Impaired Sensation Description Numbness Muscle Tone Muscle Tone WNL No M6 PT-IP Treatment Start: 10/15/19 12:38 Freq: NEEDED Status: Active Protocol: Document 10/19/19 16:01 SUNDAR (Rec: 10/19/19 16:24 SUNDAR [email or web address]) Physical Therapy Treatment Exercises Exercises Ankle Pumps,Quad Sets,Heel Slides Other Treatments Other Treatment Performed Performed PROM and AAROM of L knee. M7 PT-IP Assessment and Plan Start: 10/15/19 12:38 Freq: NEEDED Status: Active Protocol: Document 10/19/19 16:01 SUNDAR (Rec: 10/19/19 16:24 SUNDAR [email or web address]) PT Summary Assessment and Plan Summary Impairments Pain,ROM,Strength,Balance, Coordination,Sensation,Tone, Cognition,Bed Mobility, Transfers,Gait,Activity Tolerance Progress Towards Goals Slow Progress due to Medical Issues Assessment Summary Pt has 8/10 reported pain while performing AAROM of L knee. Able to tolerate PROM of L knee and ankle, ankle pumps , and quad sets w/o increased pain. Communicated to nurses that pt requested pn medication for restless legs and brief change. Pt left in chair with all needs met. Goals Bed Mobility Goal Minimal Assistance Transfer Goal Minimal Assistance,Front Wheeled Walker Gait Distance 25 Days to Meet Goals 10 Frequency of Treatment Frequency Of Treatment Twice a Day Treatment Plan Physical Therapy Treatment Plan Bed Mobility Training,Transfer Training,Gait Training, Therapeutic Exercise,Balance Retraining,Post Op Education, Discharge Planning,Hot or Cold Pack,Neuromuscular Re-ed, Coordination Retraining,Manual Therapy Other Recommendations and Next Treatment ROM, transfers as able Focus Recommendations To Nursing Amount of Assist Needed 1 Person Assist Discharge Recommendations PT Discharge Recommendations SNF Rehab documentation reviewed by Brooke Samaniego PTA
--- NOTE | 2019-10-19 19:16 | P.PN_ITS ---
Subjective Subjective Date Patient Seen: 10/19/19 Interval history: Dipika Greenfield is a 74-year-old female with a past medical history significant for hypertension, diabetes mellitus type 2, non-insulin using, GERD with PUD, RLS, and osteoarthritis who had retrograde femoral nailing of left leg secondary to supracondylar femur fracture above left total knee arthroplasty. Medicine team was consulted for persistent hypoglycemia, hypotension, and acute kidney injury. The patient is resting in bed and appears mildly uncomfortable. She received hydromorphone earlier today and became significantly somnolent and minimally responsive prompting Narcan administration by nursing staff. The patient requests ropinirole for restless legs which is not due for several more hours. The patient is alert and oriented x3. She continues to have mild intermittent confusion likely related to narcotic administration. Discussed pain control and realistic expectations in regard to pain control with the patient. She has no other complaints other than restless legs and subjective shortness of breath with wheezing. She denies headache, chest pain, abdominal pain, nausea, vomiting, fever, chills, dysuria, diarrhea or constipation. She is voiding without difficulty. She has not had a bowel movement since admission and a bowel regimen has been implemented. She is up minimally with assistance. Continue PT/OT. Exam Vital Signs (past 8 hours): - 10/19/19 15:48 Temperature 99.2 F Pulse Rate 63 Respiratory Rate 24 Blood Pressure 158/88 H Pulse Oximetry 93 Oxygen Delivery Method Room Air Oxygen Flow Rate 1.5 Narrative Exam Narrative: General: Elderly female lying bed, appears mildly uncomfortable but in no acute distress, well-developed, well-nourished, inattentive and mildly somnolent but otherwise appropriately interactive. HEENT: Normocephalic, atraumatic. External ears without defect. Pupils equal, round, and reactive to light. Anicteric sclerae, moist conjunctivae, and no lid lag. Neck: Supple with full range of motion. No jugular venous distension. No lymphadenopathy or thyromegaly. Cardiovascular: Regular rhythm, mildly bradycardic without murmurs, rubs, or gallops appreciated Pulmonary: Clear to auscultation bilaterally without crackles, wheezes, or rhonchi. Normal respiratory effort with no use of accessory muscles. Abdomen: Soft,obese, bowel sounds present, non-tender, non-distended. No hepatosplenomegaly or masses appreciated. Extremities: No clubbing, cyanosis, or edema. Left leg in brace and YVONNE wrapped , picco dressing in place C/D/I. Distal pulses and sensation intact on left leg. Skin: Normal temperature, turgor, and texture; no rash, ulcers, or subcutaneous nodules appreciated. Neurological: Cranial nerves grossly intact. Psychiatric: Depressed mood and flat affect. Alert and oriented to person, place, and time. Objective Labs Result Diagrams: 10/19/19 05:06 10/19/19 05:06 Labs: Laboratory Results - last 24 hr 10/19/19 10/19/19 05:06 05:06 WBC 5.3 RBC 3.01 L Hgb 9.2 L Hct 26.5 L MCV 87.9 MCH 30.4 MCHC 34.6 RDW 13.5 Plt Count 240 Neut % (Auto) 71.8 Lymph % (Auto) 12.2 L Mobile % (Auto) 9.7 Eos % (Auto) 5.8 H Baso % (Auto) 0.5 Neut # (Auto) 3800 Lymph # (Auto) 700 L Mobile # (Auto) 500 Eos # (Auto) 300 Baso # (Auto) 0 Sodium 131 L Potassium 5.2 H Chloride 96 L Carbon Dioxide 26 BUN 44 H Creatinine 1.30 H Estimated GFR 40.0 L BUN/Creatinine Ratio 33.8 H Glucose 221 H D Calcium 9.2 Assessment & Plan Assessment & Plan narrative: Dipika Greenfield is a 74-year-old female with a past medical history significant for hypertension, diabetes mellitus type 2, non-insulin using, GERD with PUD, RLS, and osteoarthritis who had retrograde femoral nailing of left leg secondary to supracondylar femur fracture above left total knee arthroplasty. Medicine team was consulted for persistent hypoglycemia, hypotension, and acute kidney injury. 1. Acute metabolic encephalopathy, on chronic dementia, not present on admission. Resolving. -Initially multifactorial and due to hypoglycemia, postop pain, narcotics, anemia and underlying mild dementia. Patient is now intermittently confused which seems to be mostly pain and/or narcotic driven in setting of dementia. -Urinalysis not suggestive of UTI and had no growth. -Per Ortho H&P, patient has early-onset dementia associated with her Parkinson's which are contributing factors. -Continue post-operative pain management per Ortho and as below. -Continue to reorient often. May consider seroquel if persistently delerious or significantly agitated. 2. Retrograde femoral nailing of left leg secondary to supracondylar femur fracture above left total knee arthroplasty with acute blood loss anemia, not present on admission. Active. -Secondary to femur fracture after recent left knee replacement. -Hemoglobin down to 6.8. Received 2 units PRBC on 10/17/2019 with appropriate compensation and hemoglobin 8.8. H&H is stable and improving. -Continue to monitor for overt signs of bleeding and H&H periodically. -Continue PT and OT evaluation and treatment. Patient is having a very difficult time mobilizing. -Continue post-operative, DVT and pain management per Ortho. Must be judicious with narcotic administration as patient required Narcan administration due minimal responsiveness today. Continue acetaminophen 975 mg three times daily scheduled, restarted home celebrex 100 mg twice daily, home ropinirole three times daily as needed, home oxycodone 5-10 mg every 3 hours as needed for moderate break through pain and discontinued high dose hydromorphone 2 mg and continued low dose hydromorphone 0.5 mg IV decreased from every 1 hour to every 4 hours ONLY for severe break through pain. 3. Acute kidney injury, not present on admission. Resolved. -Likely multifactorial and due to volume depletion, from NPO/insensible losses and acute blood loss, and potentially nephrotoxic medications given right circumstances including celebrex, HCTZ and losartan all of which were held. -Baseline creatinine 1.2-1.3. Patient had significant elevation in creatinine to 2.20. Now back to baseline creatinine at 1.3. Restarted losartan at half normal dose 50 mg daily and celebrex 100 mg twice daily. Could consider restarting HCTZ in next several days if creatinine is stable. -Avoid other nephrotoxic agents. -Maintain adequate volume status and encourage PO intake of fluids. 4. Acute hyperkalemia, secondary to MAYTE, not present on admission. Resolved. -Patient's baseline serum potassium was 4.7-5.5, which is high normal/mildly elevated. -Restarted losartan at lower dose and decreased from 100 mg to 50 mg daily due to MAYTE and elevated potassium. -Continue to monitor patient closely on telemetry. -Patient has received albuterol, calcium gluconate, D50 and regular insulin, furosemide (several doses) and kayexalate (several doses). -Continue to monitor potassium level daily. 5. Acute persistent hypoglycemia, on diabetes mellitus type II now in remission, not present on admission. Resolved. -Patient no longer hypoglycemic and discontinued D10 W gtt. Patient was likely hypoglycemic due glipizide in setting of decreased renal clearance from MAYTE and DM in remission. -Ordered hemoglobin A1C which was normal at 5.5 % and diabetes is considered in remission. Discontinued glipizide and continue diet control. -Continue ACHS blood glucose monitoring to closely monitor for hypo and/or h yperglycemia. 6. Volume overload, not present on admission. Resolved. -Patient became dyspneic several days post-op with evidence of pulmonary edema on x-ray and significant weight gain since admission. -Received furosemide 20 mg IV x 1 and 40 mg IV x 1 with improvement. Continue furosemide 20-40 mg IV as needed for signs of fluid overload. 7. Bradycardia, acuity unclear but appears chronic, present on admission. Stable. -Noted at times bradycardic with HR average 50-60 and as low as 48. Likely secondary to sleeping and probable VERONICA. Patient is in sinus rhythm and maintaining BP. Bradycardia appears asymptomatic and can be monitored, she is not on any AV blocking agents. -Continue to monitor closely on telemetry. Thank you for this most interesting consult. We will sign off at this time but feel free to contact us for further assistance.
[2019-10-19 19:33] LABS: Hemoglobin A1C% w Est Avg Glu 5.5 % (4.0-6.0)
[2019-10-19] MEDS: BISACODYL 10 MG SUPP PR (20:22)
[2019-10-19] MEDS: LATANOPROST 0.005% OPHTH 2.5 ML 1 DROPS EYE-BOTH (20:23)
[2019-10-20] VITALS (7 sets, daily range): BP systolic 121–160; BP diastolic 53–75; PULSE 18–86; RESP 16–18; TEMP 36.7–37.3; O2SAT 91–97
[2019-10-20] MEDS: OXYCODONE IR 5 MG TABLET PO ×5 (03:32→21:23)
[2019-10-20] MEDS: PANTOPRAZOLE 20 MG TABLET PO (05:24)
[2019-10-20 05:30] LABS: Add Manual Diff / Slide Review NO; Basophils Absolute Auto 0 /uL (0-100); Basophils Percent Auto 0.5 % (0-2); Eosinophils Absolute Auto 100 /uL (0-450); Eosinophils Percent Auto 2.4 % (2-4); Hematocrit 28.8 % (36-46); Hemoglobin 10.2 g/dL (12.0-16.0); Lymphocytes Absolute Auto 600 /uL (1100-4500); Lymphocytes Percent Auto 12.1 % (25-40); Mean Corpuscular HGB Conc 35.4 % (30-36); Mean Corpuscular Hemoglobin 30.3 PG (26-34); Mean Corpuscular Volume 85.6 fL (80-100); Monocytes Absolute Auto 700 /uL (0-900); Monocytes Percent Auto 12.3 % (3-14); Neutrophils Absolute Auto 3900 /uL (1500-7000); Neutrophils Percent Auto 72.7 % (50-75); Platelet Count 302 X10^3/uL (150-400); Red Blood Cell Count 3.37 X10^6/uL (4.0-5.2); Red Cell Distribution Width 13.6 % (11.6-14.8); White Blood Cell Count 5.3 X10^3/uL (4.5-11.0)
[2019-10-20 05:35] LABS: Alanine Aminotransferase 18 IU/L (<35); Albumin 3.5 g/dL (3.5-5.0); Albumin Globulin Ratio 1.1 (1.0-2.8); Alkaline Phosphatase 105 U/L (38-126); Aspartate Aminotransferase 25 IU/L (14-36); Bilirubin Total 2.2 mg/dL (0.2-1.3); Blood Urea Nitrogen 32 mg/dL (7-17); Calcium 9.9 mg/dL (8.4-10.2); Carbon Dioxide 30 mmol/L (22-32); Chloride 104 mmol/L (98-107); Estimated Glomerular Filt Rate 54.2 mL/min (>60); Globulin 3.1 g/dL (1.7-4.1); Glucose 127 mg/dL (80-110); HEMOLYSIS < 15 (0-50); Magnesium 1.9 mg/dL (1.6-2.3); Potassium 4.5 mmol/L (3.4-5.1); Sodium 140 mmol/L (137-145); Total Protein 6.6 g/dL (6.3-8.2)
--- NOTE | 2019-10-20 07:45 | PM.PNPO.1 ---
Subjective Subjective Date Patient Seen: 10/20/19 Time Patient Seen: 07:48 Interval history: POD #5 s/p retrograde femoral nail, left leg secondary to supracondylar femur fracture above left total knee arthroplasty. Patient is doing well, complains of pain in left hip. Pain is well controlled and she requests less oxycodone. She complains of restless leg syndrome. No other complaints. Hospitalist managing multiple morbidities. Patient denies fever, chills, chest pain, shortness of breath, calf pain. Exam Vital Signs (past 8 hours): - 10/19/19 23:50 10/20/19 04:34 Temperature 98.7 F 98.0 F Pulse Rate 69 81 Respiratory Rate 18 16 Blood Pressure 140/73 159/75 H Pulse Oximetry 95 95 Oxygen Delivery Method Nasal Cannula Oxygen Flow Rate 1.5 Narrative Exam Narrative: 74 year old female is lying comfortably in bed, in no apparent distress. A&Ox3. KAYDEN dressing is on and CDI. Acewrap and knee immobilizer in place. Patient able to actively dorsiflex/plantar flex b/l. Capillary refill <2sec LE bl. Dorsalis pedis 2+ bl. Calves warm, soft, compressible, nttp. Sensory function grossly intact to light touch in LE bl. Urinary catheter in place. Objective Labs Result Diagrams: 10/20/19 05:01 10/20/19 05:01 Labs: Laboratory Results - last 24 hr 10/19/19 10/19/19 10/20/19 05:06 05:06 05:01 WBC 5.3 5.3 RBC 3.01 L 3.37 L Hgb 9.2 L 10.2 L Hct 26.5 L 28.8 L MCV 87.9 85.6 MCH 30.4 30.3 MCHC 34.6 35.4 RDW 13.5 13.6 Plt Count 240 302 Neut % (Auto) 71.8 72.7 Lymph % (Auto) 12.2 L 12.1 L Emmons % (Auto) 9.7 12.3 Eos % (Auto) 5.8 H 2.4 Baso % (Auto) 0.5 0.5 Neut # (Auto) 3800 3900 Lymph # (Auto) 700 L 600 L Emmons # (Auto) 500 700 Eos # (Auto) 300 100 Baso # (Auto) 0 0 Sodium Potassium Chloride Carbon Dioxide BUN Creatinine Estimated GFR BUN/Creatinine Ratio Glucose Hemoglobin A1c 5.5 Calcium Magnesium Total Bilirubin AST ALT Alkaline Phosphatase Total Protein Albumin Globulin Albumin/Globulin Ratio 10/20/19 05:01 WBC RBC Hgb Hct MCV MCH MCHC RDW Plt Count Neut % (Auto) Lymph % (Auto) Emmons % (Auto) Eos % (Auto) Baso % (Auto) Neut # (Auto) Lymph # (Auto) Emmons # (Auto) Eos # (Auto) Baso # (Auto) Sodium 140 Potassium 4.5 Chloride 104 Carbon Dioxide 30 BUN 32 H Creatinine 1.00 Estimated GFR 54.2 L BUN/Creatinine Ratio 32.0 H Glucose 127 H Hemoglobin A1c Calcium 9.9 Magnesium 1.9 Total Bilirubin 2.2 H AST 25 ALT 18 Alkaline Phosphatase 105 Total Protein 6.6 Albumin 3.5 Globulin 3.1 Albumin/Globulin Ratio 1.1 Assessment & Plan Post-op Postoperative Procedures: Procedures Operation Date: 10/14/19 12:15 Actual Procedures Side Surgeon p Intramedullary Nailing Femur Distal Left Bill Rios MD Postoperative plan narrative: Changed medication - oxycodone 5mg changed to q4hr prn - ropinirole, now 1 dose at 4pm and 2 doses at 9pm Continue PT, ROM exercises, toe touch weight bearing and use of knee immobilizer One medically clear per hospitalist, discharge to SNF can be considered Time Spent With Patient Time with patient: less than 15 minutes
[2019-10-20] MEDS: TIMOLOL 0.5% OPHTH 1 DROPS EYE-BOTH ×2 (08:44→21:21)
[2019-10-20] MEDS: BRIMONIDINE 0.2% OPHTH 5 ML 1 DROPS EYE-BOTH ×2 (08:44→21:21)
[2019-10-20] MEDS: SIMVASTATIN 20 MG TABLET PO (08:45)
[2019-10-20] MEDS: CELECOXIB 100 MG CAPSULE PO ×2 (08:45→21:21)
[2019-10-20] MEDS: DOCUSATE 100 MG CAPSULE PO (08:48)
[2019-10-20] MEDS: ACETAMINOPHEN 325 MG TABLET 975 MG PO ×3 (08:48→21:24)
[2019-10-20] MEDS: ASPIRIN EC 81 MG TABLET PO ×2 (08:48→21:24)
[2019-10-20] MEDS: LOSARTAN 50 MG TABLET PO (08:48)
[2019-10-20] MEDS: CITALOPRAM 20 MG TABLET PO (08:48)
[2019-10-20] MEDS: SODIUM CHLORIDE 0.9% FLUSH 10 ML IV ×2 (08:49→22:08)
--- NOTE | 2019-10-20 12:03 | PT.IPTN ---
Current Diagnoses Other fracture of lower end of left femur, initial encounter for closed fracture (10/14/19) Presence of right artificial knee joint (10/14/19) Surgery Performed Operation Date: 10/14/19 12:15 Actual Procedures p Intramedullary Nailing Femur Distal(Left) - Bill Rios MD Physical Therapy Treatment Note M2 PT-IP Current Condition Start: 10/15/19 12:38 Freq: NEEDED Status: Active Protocol: Document 10/20/19 11:56 [facility] (Rec: 10/20/19 12:03 [facility] [id number]) Physical Therapy Current Condition Current Condition Treatment Diagnosis L supracondylar femur fx able TKA s/p femoral nail; difficulty in walking Onset Date 10/14/19 Weight Bearing Status Weight Bearing Status Touch Down Weight Bearing Allowed Weight Bearing Amount (enter % TTWB LLE or #) (%) M3 PT-IP Subjective Start: 10/15/19 12:38 Freq: NEEDED Status: Active Protocol: Document 10/20/19 11:56 [facility] (Rec: 10/20/19 12:03 [facility] [email or web address]) Subjective Physical Therapy Visit Type Type Treatment Note Visit Start Time 11:30 Visit Stop Time 11:53 Total Visit Minutes 23 Number of PASSENGER [employer]PER[employer] Visits 0 Physical Therapy Visit Comments Patient Comments Pt reports she doesn't want to get to the chair until after lunch but agreeable to bed mobility & exercises M4 PT-IP Mobility and Gait Start: 10/15/19 12:38 Freq: NEEDED Status: Active Protocol: Document 10/20/19 11:56 [facility] (Rec: 10/20/19 12:03 [facility] [id number]) PT-Bed Mobility Assessment Rolling Type of Rolling Roll to Left Level of Assist Contact Guard Assistance Supine to Sit Supine to Sit Minimal Assistance,Head of Bed Elevated Sit to Supine Sit to Supine Minimal Assistance Scooting Scooting Up and Down in Bed Moderate Assistance PT-Transfer Assessment Comments Mobility Comments Pt required signfiicant cueing for using bed rails & pushing using UE and core but did well with min A and max cueing . M5 PT-IP Objective Assessments Start: 10/15/19 12:38 Freq: NEEDED Status: Active Protocol: Document 10/20/19 11:56 [facility] (Rec: 10/20/19 12:03 [facility] [id number]) Orientation Orientation/Cognition Level of Alertness Alert M6 PT-IP Treatment Start: 10/15/19 12:38 Freq: NEEDED Status: Active Protocol: Document 10/20/19 11:56 [facility] (Rec: 10/20/19 12:03 [facility] [id number]) Physical Therapy Treatment Exercises Exercises Ankle Pumps,Gluteal Sets,Quad Sets,Straight Leg Raises, Supine Hip Abduction Other Treatments Other Treatment Performed leaning to L side then sitting back up x10, leg lift L in sitting M7 PT-IP Assessment and Plan Start: 10/15/19 12:38 Freq: NEEDED Status: Active Protocol: Document 10/20/19 11:56 [facility] (Rec: 10/20/19 12:03 [facility] [id number]) PT Summary Assessment and Plan Summary Impairments Pain,ROM,Strength,Balance, Coordination,Sensation,Tone, Cognition,Bed Mobility, Transfers,Gait,Activity Tolerance Progress Towards Goals Slow Progress due to Medical Issues Assessment Summary Pt did well with session with activity and was very agreeable with PT. She did well with bed mobility and is slowly progressing. She was agreeable to get to chair this PM Goals Bed Mobility Goal Minimal Assistance Transfer Goal Minimal Assistance,Front Wheeled Walker Gait Distance 25 Days to Meet Goals 10 Frequency of Treatment Frequency Of Treatment Twice a Day Treatment Plan Physical Therapy Treatment Plan Bed Mobility Training,Transfer Training,Gait Training, Therapeutic Exercise,Balance Retraining,Post Op Education, Discharge Planning,Hot or Cold Pack,Neuromuscular Re-ed, Coordination Retraining,Manual Therapy Other Recommendations and Next Treatment transfer to chair Focus Recommendations To Nursing Amount of Assist Needed 2 Person Assist Discharge Recommendations PT Discharge Recommendations SNF Rehab
--- NOTE | 2019-10-20 14:51 | PC.NURSE ---
Pt is A&Ox3. She is not having any hallucinations or issues waking up from oxycodone for her pain. Pt is on a routine schedule now for pain meds. This has been going well for patient. She has a picco drain that is cdi with a brace in place. Pt transferred with 2 pa and did better today, she was able to move and take a few steps. Resting comfortably in bed now.
--- NOTE | 2019-10-20 15:02 | PT.IPTN ---
Current Diagnoses Other fracture of lower end of left femur, initial encounter for closed fracture (10/14/19) Presence of right artificial knee joint (10/14/19) Surgery Performed Operation Date: 10/14/19 12:15 Actual Procedures p Intramedullary Nailing Femur Distal(Left) - Bill Rios MD Physical Therapy Treatment Note M2 PT-IP Current Condition Start: 10/15/19 12:38 Freq: NEEDED Status: Active Protocol: Document 10/20/19 11:56 [facility] (Rec: 10/20/19 12:03 [facility] [id number]) Physical Therapy Current Condition Current Condition Treatment Diagnosis L supracondylar femur fx able TKA s/p femoral nail; difficulty in walking Onset Date 10/14/19 Weight Bearing Status Weight Bearing Status Touch Down Weight Bearing Allowed Weight Bearing Amount (enter % TTWB LLE or #) (%) M3 PT-IP Subjective Start: 10/15/19 12:38 Freq: NEEDED Status: Active Protocol: Document 10/20/19 14:34 [facility] (Rec: 10/20/19 15:45 [facility] [email or web address]) Subjective Physical Therapy Visit Type Type Treatment Note Visit Start Time 14:34 Visit Stop Time 15:02 Total Visit Minutes 28 Notes Treatment supervised by KATE Kyle. Number of HOSE MENDER Visits 1 Physical Therapy Visit Comments Patient Comments Pt alert and agreeable to work with therapy. States that she would like to get into chair. Therapy Pain Assessment Pain When Pain Assessed During Mobility Pain Present Pain Present Pain Reported Location Left Knee Pain Behaviors Wincing Pain Management Techniques Modification of Treatment,Re- positioning M4 PT-IP Mobility and Gait Start: 10/15/19 12:38 Freq: NEEDED Status: Active Protocol: Document 10/20/19 14:34 [facility] (Rec: 10/20/19 15:45 [facility] [email or web address]) PT-Bed Mobility Assessment Rolling Type of Rolling Roll to Right Level of Assist Standby Assistance Supine to Sit Supine to Sit Moderate Assistance,1 Person Assistance,Head of Bed Elevated,Bedrails Scooting Scooting Up and Down in Bed Moderate Assistance PT-Transfer Assessment Sit to and From Stand Sit to and from Stand Moderate Assistance,1 Person Assistance Equipment Transfer Assistive Device Gait Belt,Front Wheeled Walker Orthotic/Prosthetic Devices or Brace: No Transfers Transfer Destination Chair Transfer Technique Squat Pivot Transfer Ability Level of Assist Maximum Assistance,1 Person Assistance Comments Mobility Comments Pt able to move LE in bed SBA, but required Mod A for sup<> sit and scooting to edge of bed. Pt prefers to get up L side of bed but trialed R durign tx today. Pt able to stand with FWW with Mod A at EOB, required cues to adhere to TTWB precaution. Pt unable to pivot using RLE and BUE WB on FWW, switched to squat pivot transfer rqeuiring Max A x1. Able to scoot back in chair SBA. Pt in chair with all needs in reach. PT-Balance Assessment Sitting Balance and Reactions Static Sitting Balance Ability Fair Dynamic Sitting Balance Ability Fair Standing Balance and Reactions Static Standing Balance Ability Poor Dynamic Standing Balance Ability Poor Device Used FWW M5 PT-IP Objective Assessments Start: 10/15/19 12:38 Freq: NEEDED Status: Active Protocol: Document 10/20/19 11:56 [facility] (Rec: 10/20/19 12:03 [facility] [email or web address]) Orientation Orientation/Cognition Level of Alertness Alert M6 PT-IP Treatment Start: 10/15/19 12:38 Freq: NEEDED Status: Active Protocol: Document 10/20/19 14:34 [facility] (Rec: 10/20/19 15:45 [facility] [email or web address]) Physical Therapy Treatment Exercises Exercises Ankle Pumps,Quad Sets,Heel Slides,Straight Leg Raises, Supine Hip Abduction Knee ROM Measurement 50 deg L knee flexion AAROM Other Treatments Other Treatment Performed Performed AAROM of L knee. M7 PT-IP Assessment and Plan Start: 10/15/19 12:38 Freq: NEEDED Status: Active Protocol: Document 10/20/19 14:34 [facility] (Rec: 10/20/19 15:45 [facility] [email or web address]) PT Summary Assessment and Plan Potential Rehabilitation Potential Fair Status of Condition at Evaluation Evolving Summary Impairments Pain,ROM,Strength,Balance, Coordination,Sensation,Tone, Cognition,Bed Mobility, Transfers,Gait,Activity Tolerance Progress Towards Goals Slow Progress due to Medical Issues Assessment Summary Pt showed improvements with mobility and strength this date. Had decreased pain as compared to yesterday. Willing to go from bed to chair. Pt completed ankle pumps, quad sets, heel slides, SLR, and abd in bed. Cueing and Mod A for scooting EOB, Max A for squat pivot transfer into chair. Goals Bed Mobility Goal Minimal Assistance Transfer Goal Minimal Assistance,Front Wheeled Walker Gait Distance 25 Days to Meet Goals 10 Frequency of Treatment Frequency Of Treatment Twice a Day Treatment Plan Physical Therapy Treatment Plan Bed Mobility Training,Transfer Training,Gait Training, Therapeutic Exercise,Balance Retraining,Post Op Education, Discharge Planning,Hot or Cold Pack,Neuromuscular Re-ed, Coordination Retraining,Manual Therapy Other Recommendations and Next Treatment transfer to chair Focus Recommendations To Nursing Amount of Assist Needed 1 Person Assist Discharge Recommendations PT Discharge Recommendations SNF Rehab
[2019-10-20] MEDS: ROPINIROLE 1 MG TABLET PO (15:04)
[2019-10-20] MEDS: LATANOPROST 0.005% OPHTH 2.5 ML 1 DROPS EYE-BOTH (21:21)
[2019-10-20] MEDS: ROPINIROLE 1 MG TABLET 2 MG PO (21:23)
[2019-10-21 04:00] VITALS: BP 157/74; PULSE 75; RESP 16; TEMP 36.8; O2SAT 90
[2019-10-21] MEDS: OXYCODONE IR 5 MG TABLET PO ×2 (05:18→08:48)
[2019-10-21] MEDS: PANTOPRAZOLE 20 MG TABLET PO (05:18)
[2019-10-21 08:00] VITALS: BP 155/63; PULSE 66; RESP 14; TEMP 36.8; O2SAT 91
[2019-10-21] MEDS: SIMVASTATIN 20 MG TABLET PO (08:47)
[2019-10-21] MEDS: SODIUM CHLORIDE 0.9% FLUSH 10 ML IV (08:47)
[2019-10-21] MEDS: CITALOPRAM 20 MG TABLET PO (08:48)
[2019-10-21] MEDS: BRIMONIDINE 0.2% OPHTH 5 ML 1 DROPS EYE-BOTH (08:48)
[2019-10-21] MEDS: LOSARTAN 50 MG TABLET PO (08:48)
[2019-10-21] MEDS: CELECOXIB 100 MG CAPSULE PO (08:48)
[2019-10-21] MEDS: ASPIRIN EC 81 MG TABLET PO (08:48)
[2019-10-21] MEDS: TIMOLOL 0.5% OPHTH 1 DROPS EYE-BOTH (08:49)
--- NOTE | 2019-10-21 09:23 | PM.DS.1 ---
History of Present Illness History of Present Illness Date Patient Seen: 10/21/19 Chief complaint: [id number] L DISTAL FEMUR INTRAMEDULLARY SOO INSERTION Narrative: Please see HPI previously recorded in chart. Discharge Providers Provider Date of admission: 10/14/19 10:39 Discharge Date: 10/21/19 Consults: 10/14/19 18:45 Consult to Dietitian, Adult Routine Comment: Reason For Exam: assessed at risk 10/14/19 18:46 Consult to Discharge Planning Routine Comment: Consult to Physical Therapy Evaluate & Treat Comment: Physician Instructions: postop TKA protocol Consult to Physical Therapy Evaluate & Treat Comment: Immediate ROM in brace. TTWB. Physician Instructions: Evaluate and Treat Consult to Respiratory Therapy Evaluate & Treat Comment: Physician Instructions: Evaluate and treat Discharge provider: Stefania Moss PA-C Summary Hospital Course Hospital Course: The patient presents today for repair of supracondylar femur fracture above total knee arthroplasty. The patient is a little over 2 weeks status post knee replacement. One week ago she took a long step and felt pain in her leg. The pain became more severe. X-rays ventrally showed an incomplete fracture above the total knee arthroplasty. She now presents for repair of the fracture with an intramedullary nail. The nature of the procedure including the risks and benefits, alternatives, postoperative course and expected outcome were discussed and all questions answered. Consent was obtained. Operative site confirmed and marked. On 10/14 she was taken to the operating room where she underwent Retrograde femoral nail left leg and replacement of polyethylene spacer left total knee with Dr. Rios which she tolerated well. Post operatively her recovery was slowed by hypoglycemia and MAYTE along with significant confusion likely due to combination of hypoglycemia and narcotics. Hospitalist was consulted and patient responded well to treatment. Glipizide and hydrochlorothiazide were discontinued and Losartan dose adjusted. She is currently alert and oriented with present regimen of Oxycodone 5mg Q4hrs. Nuno catheter remains in place due to poor mobilization. She continues to work with PT but is slow to mobilize and requires post operative rehab. She is medically stable for discharge to SNF later today. Status at Discharge Cognitive/behavioral status at discharge: oriented Overall status at discharge: patient is progressing back to baseline Exam Vital Signs (past 8 hours): - 10/21/19 04:00 10/21/19 08:00 Temperature 98.3 F 98.2 F Pulse Rate 75 66 Respiratory Rate 16 14 Blood Pressure 157/74 H 155/63 H Pulse Oximetry 90 L 91 Oxygen Delivery Method Room Air,Nasal Cannula Oxygen Flow Rate 0 Narrative Exam Narrative: 74 year old female resting in bed. Alert and oriented, no acute distress. Patient wearing hinge knee brace. KAYDEN dressing on and operational. Area of shadow drainage at base of dressing. Patient able to fire ankle flexors and extensors. Sensation intac tot light touch. Palpable pedal pulse. Objective Labs Result Diagrams: 10/20/19 05:01 10/20/19 05:01 Discharge Plan Discharge Plan Patient Disposition: SNF Transfer to: [facility], [facility] Consult as needed: Dental, Hearing, Mental health, Podiatry and Vision Discharge orders & Medications Prescriptions: New ropinirole 1 mg Tablet 2 mg PO 2100 Qty: 40 RF: 0 ropinirole 1 mg Tablet 1 mg PO 1600 Qty: 40 RF: 0 docusate sodium [DOK] 100 mg Capsule 100 mg PO BID Qty: 40 RF: 0 oxycodone 5 mg Tablet 5 mg PO Q4HR Qty: 40 RF: 0 Continued celecoxib [Celebrex] 100 mg Capsule 100 mg PO BID RF: 0 PreserVision AREDS-2 [id number] Capsule 1 tab PO BID RF: 0 acetaminophen 325 mg Tablet 975 mg PO TID Qty: 90 RF: 0 aspirin 81 mg Tablet,Delayed Release (Dr/Ec) 81 mg PO BID Qty: 60 RF: 0 latanoprost 0.005 % drops 1 drp EYE-BOTH BEDTIME RF: 0 citalopram 10 mg tablet 20 mg PO DAILY RF: 0 simvastatin 20 mg tablet 20 mg PO DAILY RF: 0 brimonidine 0.2 % drops 1 drp EYE-BOTH BID RF: 0 epinephrine 0.3 mg/0.3 mL auto-injector 0.3 mg IM PRN PRN (Reason: Allergic Reaction) RF: 0 losartan 100 mg tablet 100 mg PO DAILY RF: 0 oxycodone 5 mg tablet 10 mg PO Q3HR PRN (Reason: Pain, Moderate (4-6)) RF: 0 hydroxyzine pamoate 25 mg Capsule 25 mg PO Q6HR PRN (Reason: Muscle Spasm) RF: 0 albuterol sulfate 0.63 mg/3 mL Solution For Nebulization 0.63 mg INHALATION Q4-6H PRN (Reason: Wheezing) RF: 0 budesonide 0.25 mg/2 mL Suspension For Nebulization 0.25 mg INHALATION BID RF: 0 omeprazole 20 mg capsule,delayed release(DR/EC) 20 mg PO DAILY RF: 0 Discontinued ropinirole 1 mg Tablet 1 mg PO TID RF: 0 hydrochlorothiazide 12.5 mg capsule 12.5 mg PO DAILY RF: 0 glipizide 5 mg tablet 5 mg PO BID RF: 0 Follow up/Referrals: Bill Rios MD [Physician] - Discharge Health Status Precautions: [place] Diet/Activity/Treatments Diet: Diet as Tolerated Liquid consistency: Normal/Thin Food texture: Regular Activity: The patient was placed in a hinged knee brace, which can be loosened or removed for short periods for comfort while at rest but must be worn for activity. She should continue range of motion exercises. Toe-touch weight-bearing for at least 4 weeks after surgery. Cold/Heat Therapy: Ice packs as needed. Catheter: 2-way Nuno Other treatments: Follow up with orthopedics 2 weeks from surgery. You should follow up with your primary care physician in one week for continued monitoring of your blood pressure. Skin/Wound/Dressing Care Report to your healthcare provider any signs of infection, such as:: chills, fever, night sweats, unusual drainage and unusual redness Dressing: KAYDEN dressing should remain in place. If dressing becomes saturated on nonfunctional please call the office. [facility] Rehab type: Physical therapy and Occupational therapy Visit Report/Discharge Packet Stand Alone Forms: Surgery Discharge
--- NOTE | 2019-10-21 10:18 | PC.NURSE ---
Pt is A&Ox3, she is forgetful at times. Up in chair now with physical therapy and is toe touch weight bearing. Pt is going to be going to [facility] at 1300. is aware as pt is talking to him at this time. Pt's cms wnl and ppx2. She is comfortable at this time and getting oxycodone for pain routinely. Faustin is in place and patent with yellow urine. She will be going to the care center with her faustin.
[2019-10-21 12:45] VITALS: BP 149/73; PULSE 74; RESP 18; TEMP 37.1; O2SAT 93
--- NOTE | 2019-10-21 13:55 | CM.DPC ---
DCP Cont: Faxed discharge packet (signed med list, SNF order, PASRR and discharge summary to [facility] at fax # [phone]. Fax confirmation scanned in. Royer Anderson Video Editor
--- NOTE | 2019-10-21 15:14 | CM.DPNOTE ---
DC Note: DC order in place by Ortho team and Hospitalist signed off. Met w/pt and reviewed DCP; she remains agreeable to [facility]. Pt somewhat forgetful this morning, observed by nursing staff and this BROOM WORKER, but easily redirected, easy to remind of plan and calm/cooperative. Alerted Zayra at [facility] and cabulance was arranged for [phone] p/u, pt was transported at 1400. [facility] Yolanda faxed all DC ppk to include completed PASRR, signed med list and DC summary and order to [facility]. P: DC today to [facility] via w/c van, spouse to meet pt there at [facility]. Sienna Simms MSW
--- NOTE | 2019-10-21 17:02 | PT.IPTN ---
Current Diagnoses Other fracture of lower end of left femur, initial encounter for closed fracture (10/14/19) Presence of right artificial knee joint (10/14/19) Surgery Performed Operation Date: 10/14/19 12:15 Actual Procedures p Intramedullary Nailing Femur Distal(Left) - Bill Rios MD Physical Therapy Treatment Note M2 PT-IP Current Condition Start: 10/15/19 12:38 Freq: NEEDED Status: Discharge Protocol: Document 10/20/19 11:56 [facility] (Rec: 10/20/19 12:03 [facility] [id number]) Physical Therapy Current Condition Current Condition Treatment Diagnosis L supracondylar femur fx able TKA s/p femoral nail; difficulty in walking Onset Date 10/14/19 Weight Bearing Status Weight Bearing Status Touch Down Weight Bearing Allowed Weight Bearing Amount (enter % TTWB LLE or #) (%) M3 PT-IP Subjective Start: 10/15/19 12:38 Freq: NEEDED Status: Discharge Protocol: Document 10/21/19 09:05 [facility] (Rec: 10/21/19 14:38 [facility] [id number]) Subjective Physical Therapy Visit Type Type Treatment Note Visit Start Time 09:05 Visit Stop Time 09:23 Total Visit Minutes 18 Notes Treatment supervised by MANAGER INSIDE Brooke. Number of MANAGER INSIDE Visits 2 Physical Therapy Visit Comments Patient Comments Pt agreeable to work with therapy, but reports more pain today. Therapy Pain Assessment Pain When Pain Assessed During Mobility Pain Present Pain Present Pain Reported Location Left Knee Pain Behaviors Wincing Pain Management Techniques Apply Cold,Modification of Treatment,Re-positioning M4 PT-IP Mobility and Gait Start: 10/15/19 12:38 Freq: NEEDED Status: Discharge Protocol: Document 10/21/19 09:05 [facility] (Rec: 10/21/19 14:38 [facility] [id number]) PT-Bed Mobility Assessment Rolling Type of Rolling Roll to Left Level of Assist Standby Assistance Supine to Sit Supine to Sit Minimal Assistance,1 Person Assistance,Bedrails Sit to Supine Sit to Supine Standby Assistance Scooting Scooting to Edge of Bed Contact Guard Assistance PT-Transfer Assessment Sit to and From Stand Sit to and from Stand Minimal Assistance,1 Person Assistance Equipment Transfer Assistive Device Gait Belt,Front Wheeled Walker Orthotic/Prosthetic Devices or Brace: No Transfers Transfer Destination Bed Transfer Technique Lateral Scoot Transfer Ability Level of Assist Contact Guard Assistance,1 Person Assistance Comments Mobility Comments Pt is SBA for moving LE into and out of bed and scooting laterally in bed, but requires cueing. Min A for sit<>stand w/ FWW and TTWB and cues to use UE for support. Pt reports pain when weight bearing through R elbow, so prefers to transfer to L side. Pt able to perform ankle pumps, SLR and quad sets in bed and 3x STS at EOB w/ FWW and Min A. She verbalized pain during flexion and extension of L knee. Pt requested loosening of knee brace, Dr. Rios present and stated that pt did not have to wear her brace in bed, so it was removed. Pt left in bed with all needs in reach. PT-Balance Assessment Sitting Balance and Reactions Static Sitting Balance Ability Fair Dynamic Sitting Balance Ability Fair Standing Balance and Reactions Static Standing Balance Ability Poor Dynamic Standing Balance Ability Poor Device Used FWW M5 PT-IP Objective Assessments Start: 10/15/19 12:38 Freq: NEEDED Status: Discharge Protocol: Document 10/20/19 11:56 [facility] (Rec: 10/20/19 12:03 [facility] [id number]) Orientation Orientation/Cognition Level of Alertness Alert M6 PT-IP Treatment Start: 10/15/19 12:38 Freq: NEEDED Status: Discharge Protocol: Document 10/21/19 09:05 (Rec: 10/21/19 14:38 [id number]) Physical Therapy Treatment Exercises Exercises Ankle Pumps,Quad Sets,Straight Leg Raises,Seated Knee Flexion/Extension Other Treatments Other Treatment Performed Performed AAROM of L knee. M7 PT-IP Assessment and Plan Start: 10/15/19 12:38 Freq: NEEDED Status: Discharge Protocol: Document 10/21/19 09:05 [facility] (Rec: 10/21/19 14:38 [id number]) PT Summary Assessment and Plan Potential Rehabilitation Potential Fair Status of Condition at Evaluation Evolving Summary Impairments Pain,ROM,Strength,Balance, Coordination,Sensation,Tone, Cognition,Bed Mobility, Transfers,Gait,Activity Tolerance Progress Towards Goals Slow Progress due to Medical Issues Assessment Summary Pt is improving w/ L knee ROM but had increased pain this date. Able to perform leg strengthening exercises and lifting leg into and out of bed and lateral scooting SBA. Min A for sit<>stand w/ TTWB and FWW. Able to maintain TTWB status during standing but required cues to use UE for support. Pt had increased pn during knee extension and flexion. L Knee brace removed per pts request and permission from Dr. Rios. Pt safe to d/c to SNF when medically stable. Goals Bed Mobility Goal Minimal Assistance Transfer Goal Minimal Assistance,Front Wheeled Walker Gait Distance 25 Days to Meet Goals 10 Frequency of Treatment Frequency Of Treatment Twice a Day Treatment Plan Physical Therapy Treatment Plan Bed Mobility Training,Transfer Training,Gait Training, Therapeutic Exercise,Balance Retraining,Post Op Education, Discharge Planning,Hot or Cold Pack,Neuromuscular Re-ed, Coordination Retraining,Manual Therapy Other Recommendations and Next Treatment transfer to chair Focus Recommendations To Nursing Amount of Assist Needed 1 Person Assist Discharge Recommendations PT Discharge Recommendations SNF Rehab reviewed by Brooke Samaniego PTA
== END 2019-10-21 14:00 | DRG 480 ==
PROVIDERS: Internal Medicine; Nurse Practitioner Gerontology; Physician Assistant Medical; Admitting Provider Orthopaedic Surgery; Visit Provider Orthopaedic Surgery
PROC: 0SRD0JZ Replacement of Left Knee Joint with Synthetic Substitute, Open Approach (ICD-10-PCS; CPT 27447; principal; 2019-10-14 12:15)
DX: S72.452A Displaced supracondylar fracture without intracondylar extension of lower end of left femur, initial encounter for closed fracture (principal); G93.41 Metabolic encephalopathy; G92 Toxic encephalopathy; M97.12XA Periprosthetic fracture around internal prosthetic left knee joint, initial encounter; D62 Acute posthemorrhagic anemia; N17.9 Acute kidney failure, unspecified; Z68.41 Body mass index [BMI] 40.0-44.9, adult; E87.8 Other disorders of electrolyte and fluid balance, not elsewhere classified; E87.5 Hyperkalemia; I95.9 Hypotension, unspecified; E66.9 Obesity, unspecified; E11.649 Type 2 diabetes mellitus with hypoglycemia without coma; R00.1 Bradycardia, unspecified; I10 Essential (primary) hypertension; F03.90 Unspecified dementia, unspecified severity, without behavioral disturbance, psychotic disturbance, mood disturbance, and anxiety; E87.70 Fluid overload, unspecified; X58.XXXA Exposure to other specified factors, initial encounter
CPT/HCPCS: 36415; 36430; 36600; 64447; 71045; 73552; 80048; 80053; 81001; 82550; 82805; 82962; 83036; 83735; 84132; 84484; 85014; 85018; 85025; 86850; 86900; 86901; 87086; 93005; 94640; 94760; 97110; 97162; 97530; C1776; P9016; C9290; J0610; J1170; J1630; J1940; J2250; J2310; J2405; J2704; J3010; J3410; J7613

== ENCOUNTER → 2020-06-11 10:14 | Outpatient (CLI) | payer MEDICARE, OTHER, SELFPAY ==
[2019-10-14 18:40] VITALS: BMI 39.4
[2020-06-12 09:55] LABS: COVID19 Sendout Not Detected (Not Detect)
== END ==
PROVIDERS: Visit Provider Student in an Organized Health Care Education/Training Program
DX: Z01.812 Encounter for preprocedural laboratory examination (principal)
CPT/HCPCS: 87635

== ENCOUNTER 2020-06-14 07:17 | Inpatient (IN) | payer MEDICARE, OTHER, SELFPAY ==
[2019-10-14 18:40] VITALS: BMI 39.4
[2020-06-11 15:22] VITALS: BMI 42.1
[2020-06-14] VITALS (17 sets, daily range): BP systolic 79–171; BP diastolic 28–71; PULSE 50–74; RESP 13–20; TEMP 35.6–36.6; O2SAT 93–100; BMI 42.1
[2020-06-14] MEDS: LACTATED RINGERS 1,000 ML 42 ML IV (08:23)
--- NOTE | 2020-06-14 10:05 | PM.PREOP ---
Pre-operative Note COVID-19 COVID-19 status: Negative Result date/Date tested (Pos, Neg/Pending): 06/11/20 Interval Note History & Physical reviewed/Exam performed by Physician: Yes Changes to H&P: No
--- NOTE | 2020-06-14 10:09 | P.OP_ITS ---
Operative Date/Time/Diagnoses Date of procedure: 06/14/20 Pre-op diagnosis: Septic loose left total knee arthroplasty Healed left distal femoral fracture Post-op diagnosis: same Procedure & Clinicians Procedure: I&D left knee with removal of TKA and femoral nail; placement of articulating TKA spacer Same procedure as scheduled: Yes Indications: septic L TKA Surgeon: Bill Rios Bailer Operators Supervisor: Jason Cintron Anesthesia Type: General and Spinal Operative Notes Findings: Loose tibial component, 1cm x 1cm patellar tendon defect, 1cm x 1cm uncontained tibial defect (devendra-medial) Closure Type: non-primary Specimen(s): other (2x cultures ) Prosthetic devices, grafts, tissues, transplants, or devices: Bright and Nephew size 3 left PS femur Bright and Nephew size 1-2 18 mm legion polyethylene Estimated Blood Loss (mL): 500 Tourniquet time (min): 112 Procedure in detail: Patient is met in preoperative holding area where the site and side of surgery were marked by MD. All last minute questions were answered. Patient is brought back in the operating room where she received a spinal anesthetic and was transferred onto the operating room table and induced under general anesthesia. Skin over the left knee was then prepped an 18 gauge needle was inserted into the knee joint and 3 cc of cloudy reddish synovial fluid was aspirated and sent for culture. Once she was intubated a test dose of vancomycin was given to the patient which consist of 1 g of vancomycin. 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 Vancomycin is critical as we need to mix with the bone cement to get good an tibiotic coverage. A surgical time-out was performed verifying the site and side of surgery as well the knik the patient. We started by prepping of the proximal left thigh and fluoroscopy was used to locate the proximal interlock through the femoral nail. A stab incision was made with a 10. Blade blunt dissection down to the bolt was performed the class a regional truck driver was then placed on the head of the bolt and this screw was able to be backed out without incident. The wound was then thoroughly irrigated and closed with a running nylon. Fluoroscopic views were taken to confirm no other proximal interlocks. Sterile dressing was then placed. A nonsterile tourniquet was placed on left thigh. The left lower extremity was then prepped and draped in the normal sterile fashion. The leg was exanguinated with the esmarc. The tourniquiet was then insuflated to 250mm Hg. The old incision was then incised with a #10 blade. Medial and lateral flaps were then elevated using sharp dissection. At this point was noted there was a defect at the distal medial aspect incision involving the medial aspect of the patellar tendon. This was debrided. A medial parapatellar arthrotomy was then performed all suture material that was encountered was removed. Extensive medial and lateral debridement involving the gutters was performed. The polyethylene was removed. Sharp debridement of fibrous tissue in the back of the knee was also removed. This plate was noted there is a 1 x 1 cm cortical defect in the anteromedial aspect of the tibia right underneath the tibial tray. This represents an uncontained defect. This corresponded to the area of necrotic tissue in the patellar tendon. After thorough debridement of the soft tissues we turned our attention to the femoral component. Revision saw was used to disrupt the interface between the cement and the femur starting with the lateral side and working to the medial side. Once this was completed we then used flexible osteotomes to further loosen the component. We then used a bone tamp from the superior aspect of the femoral component to template off the femur. We had minimal bone loss with this. We then used the narrow saw blade underneath the tibial tray to disrupt the cement interface. We will bring the tibia for a 4 that we could put this off behind the keel of the tibial tray and loosen up the tibial tray from the lateral side image was the medial side. Bone tamp was then placed underneath the anterior lip of the tibial tray and was malleted out. Cement flag osteotomes were then used to break up the tibial cement and this was removed. Flexible reamers were then sent down the tibial canal. We then turned our attention to the femoral nail. The tourniquet was let down at this point to allow soft tissue rest. The threads for the tibial nail were exposed and the removal tool was screwed into the threads of the femoral nail. The 3 distal interlocking bolts were then removed sequentially. This represents removal of all the interlock bolt. The nail was then easily back slapped out of the femur. A ball-tipped guidewire was then placed inside the femur and flexible reaming starting with a size 10 flexible Reamer and going up to size 11 was then performed. Back scratched cement remover was then used to remove the membrane from within the femoral canal. Thorough irrigation of the knee with pulse lavage was then performed including canal brushes. A saw blade was used to remove the patellar button from the backside of the patella. All plastic debris and cement remnants were removed. The knee was then thoroughly irrigated with Betadine solution followed by normal saline lavage. We sized the femur to a size 3 legion PS femur and selected an 18 mm thick poly based off the trial. Tourniquet was then re inflated to 250 mm of mercury for cementing. A batch of gentamicin impregnated cement was mixed with 2 g of vancomycin. This was then formed into beads and placed over a FiberWire suture. A 2nd batch of cement was then mixed which contained 2 batches of gentamicin cement as well as 4 g of vancomycin powder. This was then mixed. While this was mixing I roughened up the backside of the polyethylene to give a better submitting surface. A thin layer of cement was then smeared on the back of the polyethylene. Cement was then placed into the tibial canal and finger packed on the tibial cut surface. The poly present held in place until the cement cured. All excess cement was removed. The antibiotic beads were then placed inside the femoral canal. A 3rd batch of gentamicin cement with 2 g of vancomycin powder was then mixed. This was then placed on the backside of the femoral component as well as on the cut surface of the femur. The femoral component was then placed in this position excess cement was removed in the was brought into full extension to allow auto-setting. The cement was fully allowed to cure. The knee was then thoroughly irrigated. The tourniquet was let down we did not have copious bleeding so we elected to not place a drain. The medial parapatellar arthrotomy was closed using interrupted 0 PDS suture followed by a running Quill suture followed by 2 0 PDS in the subcutaneous layer followed by radha on skin. A jose dressing was then placed. Patient was then woken from general anesthesia and transferred onto the [facility]. Complications: none Post-operative Condition: stable Disposition: PACU Plan for aftercare: PICC line for 6 weeks of IV antibiotics, weight-bearing for transfers only.
[2020-06-14] MEDS: VANCOMYCIN 1,000 MG/200 ML PIGGYBACK 200 MG IV ×2 (11:23→17:48)
[2020-06-14] MEDS: BUPIVACAINE 0.25% W/ EPI (PF) 40 ML, BUPIVACAINE LIPOSOME 266 MG, SODIUM CHLORIDE 0.9% ... INJ (11:36)
[2020-06-14] MEDS: TRANEXAMIC ACID 1,000 MG VIAL 1000 MG IV (11:38)
[2020-06-14] MEDS: CLINDAMYCIN 900 MG/50 ML PIGGYBACK 50 MG IV (11:47)
[2020-06-14] MEDS: BUPIVACAINE 0.25% W/ EPI (PF) 20 ML, TRANEXAMIC ACID 1,000 MG, SODIUM CHLORIDE 0.9% 10 ML INJ (11:59)
[2020-06-14] MEDS: ACETAMINOPHEN IV 1,000 MG/100 ML VIAL 400 MG IV (12:25)
[2020-06-14] MEDS: SODIUM CHLORIDE IRRIG SOLUTION 250 ML, POVIDONE-IODINE SPONGE STICKS 1 APPLIC IRR (12:44)
[2020-06-14] MEDS: VANCOMYCIN 1,000 MG VIAL 6000 MG TOP (13:22)
[2020-06-14] MEDS: HYDROMORPHONE 2 MG INJ IV ×2 (14:58→15:05)
[2020-06-14] MEDS: fentaNYL 100 MCG/2 ML INJ IV ×2 (14:58→15:05)
--- NOTE | 2020-06-14 15:17 | SUR.PHASEI ---
BG 130.
--- NOTE | 2020-06-14 15:26 | DI.RAD.S_ITS ---
PROCEDURE: XR KNEE LT 1TO2V INDICATIONS: POST OPERATIVE LEFT KNEE REVISION TECHNIQUE: 2 view(s) of the knee acquired. COMPARISON: [facility], CR, XR KNEE ARTHRITIC SERIES LT, 06/07/2020, 16:39. [facility], CR, XR FEMUR 2+ VIEWS LEFT, 06/07/2020, 16:47. [facility], CR, XR KNEE LT 3V, 10/05/2019, 12:58. [facility], CR, XR KNEE LT 1TO2V, 09/28/2019, 10:16. FINDINGS: Bones: Patient is status post revision left knee joint arthroplasty. There is an angulation abnormality at the distal diaphysis of the femur, with periosteal thickening and what appears to have been a fracture at some point between the current study and the prior left knee plain films 10/05/19. Hardware components are in expected positions. Visualized bony structures are intact. Soft tissues: Overlying postoperative changes are noted. IMPRESSION: Removal of a medullary yuli, previously documented earlier this month 06/07/20 traversing the length of the femur. Reported revision of arthroplasty, and the tibial plateau component of the arthroplasty is now absent and replaced by bone-cement centrally. Bone graft fragments are faintly seen within the distal medullary space of the left femur. Dictated by: Ramírez Aguilar M.D. on 06/14/2020 at 16:15 Approved by: Ramírez Aguilar M.D. on 06/14/2020 at 16:18
[2020-06-14] MEDS: OXYCODONE IR 5 MG TABLET PO (15:38)
[2020-06-14] MEDS: IBUPROFEN 400 MG TABLET PO ×2 (16:46→21:54)
[2020-06-14] MEDS: OXYCODONE IR 10 MG TABLET PO ×2 (16:47→21:12)
--- NOTE | 2020-06-14 17:14 | DI.RAD.S_ITS ---
PROCEDURE: XR CHEST FOR PICC 1V INDICATIONS: PICC placement TECHNIQUE: One view of the chest was acquired. COMPARISON: [facility], , XR CHEST 1V, 10/17/2019, 12:53. FINDINGS: Surgical changes and devices: A right-sided PICC line has been placed . The tip is not well seen, yet is followed to at least the level of the mid superior vena cava. Cervical spine fixation hardware is seen. Lungs and pleura: Interstitial prominence is seen. No pneumothorax is seen. The left costophrenic angles are not included within the field of view of this study. Mediastinum: Mediastinal contours appear normal. Heart size is normal. Bones and chest wall: No suspicious bony lesions. Overlying soft tissues appear unremarkable. IMPRESSION: Right-sided PICC line poorly evaluated, yet it is seen at least to the level of the mid superior vena cava. Dictated by: Austen Alvarenga M.D. on 06/14/2020 at 16:53 Approved by: Austen Alvarenga M.D. on 06/14/2020 at 16:54
[2020-06-14] MEDS: ACETAMINOPHEN 325 MG TABLET 650 MG PO ×2 (17:48→21:10)
[2020-06-14] MEDS: ROPINIROLE 1 MG TABLET PO (17:50)
[2020-06-14] MEDS: LACTATED RINGERS 1,000 ML 100 ML IV (17:51)
[2020-06-14] MEDS: HYDROMORPHONE 0.5 MG INJ 0.2 MG IV ×2 (18:20→19:42)
[2020-06-14] MEDS: CITALOPRAM 10 MG TABLET 20 MG PO (21:11)
[2020-06-14] MEDS: ASPIRIN EC 81 MG TABLET PO (21:11)
[2020-06-14] MEDS: DOCUSATE 100 MG CAPSULE PO (21:11)
[2020-06-14] MEDS: VIT C/E/ZN/COPPR/LUTEIN/ZEAXAN CAPSULE 1 CAP PO (21:12)
[2020-06-14] MEDS: glipiZIDE 5 MG TABLET PO (21:12)
[2020-06-14] MEDS: ROPINIROLE 1 MG TABLET 3 MG PO (21:12)
[2020-06-15] VITALS (18 sets, daily range): BP systolic 88–139; BP diastolic 29–72; PULSE 55–66; RESP 14–20; TEMP 36.5–37.2; O2SAT 91–100
[2020-06-15] MEDS: HYDROMORPHONE 0.5 MG INJ 0.2 MG IV ×3 (00:02→05:54)
[2020-06-15] MEDS: ALBUTEROL 1.25 MG/3 ML NEB (PEDIATRIC) 0.63 MG INH ×2 (00:56→14:58)
[2020-06-15] MEDS: IBUPROFEN 400 MG TABLET PO ×5 (02:04→20:11)
[2020-06-15] MEDS: LACTATED RINGERS 1,000 ML 100 ML IV (04:13)
[2020-06-15] MEDS: PANTOPRAZOLE 20 MG TABLET PO (06:10)
--- NOTE | 2020-06-15 06:14 | P.PN_ITS ---
Subjective Subjective Date Patient Seen: 06/15/20 Time Patient Seen: 06:35 Interval history: Dipika reports that she is doing pretty well this morning with her pain. This surgery has been much more painful than her last 2 nursery injuries overall. She does seem to get good relief with IV Dilaudid, 0.2 mg. She does not feel overmedicated. No other specific issues. Exam Vital Signs (past 8 hours): - 06/14/20 23:38 06/15/20 00:57 06/15/20 04:54 Temperature 97.8 F 97.9 F Pulse Rate 51 L 55 L Respiratory Rate 17 16 Blood Pressure 126/69 102/52 L Pulse Oximetry 100 100 99 Oxygen Delivery Method Nasal Cannula Oxygen Flow Rate 1 Narrative Exam Narrative: Dressing is intact. The leg is neurovascularly intact. There is expected swelling. Objective Labs Result Diagrams: 06/15/20 05:53 Assessment & Plan Post-op Postoperative Procedures: Procedures Operation Date: 06/14/20 09:45 Actual Procedures Side Surgeon p Removal of total joint prosthesis of knee w/ insertion of anitbiotic beads and femoral component and articular surface, remove interlocking intramedullary yuli , femur Left Blil Rios MD Postoperative day: 1 Postoperative plan narrative: Will continue with vancomycin and await intraoperative cultures. She may progress with physical therapy but will initially be nonweightbearing or very light toe-touch on the left lower e xtremity. Will place a PICC line for long-term antibiotic use. Time Spent With Patient Time with patient: 15-24 minutes
[2020-06-15 06:49] LABS: Hemoglobin 6.7 g/dL (12.0-16.0)
[2020-06-15 06:50] LABS: Hematocrit 19.8 % (36-46)
[2020-06-15 08:38] LABS: Hemoglobin 7.1 g/dL (12.0-16.0)
[2020-06-15] MEDS: ASPIRIN EC 81 MG TABLET PO ×2 (09:19→20:09)
[2020-06-15] MEDS: LOSARTAN 50 MG TABLET 100 MG PO (09:19)
[2020-06-15] MEDS: glipiZIDE 5 MG TABLET PO ×2 (09:19→20:09)
[2020-06-15] MEDS: ACETAMINOPHEN 325 MG TABLET 650 MG PO ×3 (09:19→20:06)
[2020-06-15] MEDS: DOCUSATE 100 MG CAPSULE PO ×2 (09:19→20:09)
[2020-06-15] MEDS: hydroCHLOROthiazide 25 MG TABLET PO (09:19)
[2020-06-15] MEDS: VIT C/E/ZN/COPPR/LUTEIN/ZEAXAN CAPSULE 1 CAP PO ×2 (09:24→20:11)
[2020-06-15] MEDS: HYDROMORPHONE 2 MG TABLET PO ×3 (10:11→16:07)
--- NOTE | 2020-06-15 10:55 | PC.NURSE ---
Addendum entered by Ana Cao R.N. 06/15/20 14:40: Sporadic congested cough noted, states has asthma and uses INH [place], RT made aware. Placed on O2 at 1L NC, due to sats while sleeping at 89-90%. Addendum entered by Ana Cao R.N. 06/15/20 13:56: 1310: First unit of PRBC initiated, VSS and afebrile. Consent in chart. Educated patient regarding S/Sx of transfusion reaction. Sent fax to Ortho regarding eye gtts home medication needs to be ordered inpatient, sent bottles to pharmacy. Original Note: Day shift note: Notified Dr. Rios regarding repeat H&H results of 7.1 and 21.0. New order obtained for type and cross/2 Unit PRBCs. Patient awake, oriented, calm, pleasant and cooperative. No C/O dizziness or SOB. VSS and afebrile.
[2020-06-15 11:12] LABS: Estimated Glomerular Filt Rate 53.4 mL/min (>60)
--- NOTE | 2020-06-15 12:55 | PT-IP ANOTE ---
PT order received and chart reviewed. Noticed there is activity order as WBAT, but operative note with WBAT for transfer only and progress noted with NWB / TTWB initially. Called surgeon's office and left a message to clarify WB status prior to evaluate pt. Pt's H&H results of 7.1 and 21.0 also noted. Pt is going to receive 2 Unit PRBCs this morning. Will attempt to eval PT once her WB status is clarified and if she is medically stable.
--- NOTE | 2020-06-15 13:29 | PT-IP ANOTE ---
Surgeon clarified with WB order to NWB
[2020-06-15] MEDS: VANCOMYCIN 1,000 MG/200 ML PIGGYBACK 200 MG IV (16:09)
--- NOTE | 2020-06-15 16:20 | CM.DANOTE ---
Discharge Planning/Care Management CM Discharge Assessment Start: 06/15/20 16:18 Freq: Status: Active Protocol: Document 06/15/20 16:18 ITV (Rec: 06/15/20 16:20 ITV [id number]) Discharge Planning Assessment Advance Directives? Yes Advance Directives on File No History Provided By Medical Record Prior Living Arrangements House Household Members spouse Review Status In Process Pre-Anesthesia Assessment Start: 06/11/20 15:22 Freq: Status: Active Protocol: Document 06/11/20 15:22 CAB (Rec: 06/11/20 15:33 CAB [id number]) Pre-Anesthesia Assessment PAC Comment Pt declined full PAC phone assessment, states no changes, reviewed/updated medications, s/p surgery here 10/14/19 Patient Information Reviewed Via Chart Review,Phone Assessment Assessment Completed With Patient Comment COVID screen @ 06/11/20 pending-no other recent labs identified Primary Care Provider Benito Seen Specialist in Last 12 Months Yes Specialist Seen Orthopedist Primary Language Indonesian Preferred Language Indonesian Coater Operator Insulation Board Required No Height 148.59 cm Weight 92.986 kg Body Mass Index (BMI) 42.1 Hearing Ability Normal Visual Assist Glasses Dentition Type Dental Implants Barriers to Learning None Other Aids No Hx Anesthesia Reactions Yes: PONV Hx Family Anesthesia Reaction No Hx Malignant Hyperthermia No Hx Blood Transfusions No Hx Blood Transfusion Reaction No Anesthesia Review Requested No alcohol intake never Smoking Status Never smoker Substance Use Type does not use Pain Present Pain Reported Musculoskeletal Symptoms Abnormal Gait,Difficulty Walking,Joint Pain,Numbness, Tingling History of Falling (Recent or History of Yes ) Patient is completely paralyzed or No completely immobile Prosthesis or Orthotic Device Cane,Front Wheel Walker, Wheelchair Mental Status Oriented to own ability Does patient have ARENAS/SOB No Hx Sleep Apnea No CPAP/BIPAP use not prescribed Currently Taking a Beta Dmitriy No Can You Climb a Flight of Stairs Without Yes SOB Hx Chest Pain No Hx SOB No Hx Syncope or Dizziness No Anti-Coagulant Therapy No Has a Corporate Communications Manager No Cardiac Testing No Hx Pacemaker/ICD No Pacemaker Rep Required? No Cardiac Clearance Received Not Applicable Diet Type At Home Regular dysphagia No Hx Urinary Self Catheterization No Diabetes Yes HgbA1C 5.5 Date 10/19/19 Patient No Lactating No Hx Drug Resistant Organism No Presence of External or Internal Medical Yes: Bilat eye lens, lumbar/ Devices cervical, right knee, left knee Have you had any close contact with Unknown someone diagnosed with COVID-19? Marital Status Lives With spouse Feels Safe in Current Environment Yes Been Physically Hurt or Threatened By a No Person in Current Environment Do you have thoughts of harming yourself None or others? Are you currently considering suicide? No Do you have a plan to hurt yourself or No Plan others? Do You Have Any Spiritual Beliefs That No May Affect Your HC Choices? Do You Have Any Cultural Practices That No May Affect Your HC Choices? Who Can We Speak to About Patient's Care Family, friends Identifying Code for Release of Patient Declines to issue Information Health Care Proxy/Next of Kin Emil (son) Health Care Proxy Emergency Contact Name Emil (son) Emergency Contact Advance Directives? Yes Advance Directives on File No Power of Search Strategist Yes Power of Search Strategist Name Emil Greenfield (son) Power of Search Strategist PAC Instructions Diabetes instructions,Durable medical equipment,Medications to take/avoid,Nasal antibiotic ,Pre-surgical wash
--- NOTE | 2020-06-15 16:22 | CM.DANOTE ---
Discharge Planning/Care Management DCP: assessment: case received, EMR reviewed. Discussed in Team Rounds. Pt is a 75 year old female who admitted yesterday for a scheduled surgery for infected L TKA. Hardware removed, I&D done and space in place. Pt is currently NWB on that leg. Initial surgery for LTKA was in Aug 2019 at and another surgery was done on the leg in Sep 2019. At that time pt went to [facility] for rehab/recovery. Payer: Medicare and [employer] Preferred. Admission statusL: INPT: confirmed by UR VICENTA Hair. Pt is expected to need 6 weeks of Iv antibiotics at d/c and PT/OT . Caseload triage dictates need to defer discussion of d/c issues and options to DCP team taking over this case but do think a snf setting will likely be the plan and pt is well poised with her insurance coverage for same. CM Discharge Assessment Start: 06/15/20 16:18 Freq: Status: Active Protocol: Document 06/15/20 16:18 ITV (Rec: 06/15/20 16:20 ITV [id number]) Discharge Planning Assessment Advance Directives? Yes Advance Directives on File No History Provided By Medical Record Prior Living Arrangements House Household Members spouse Review Status In Process Document 06/15/20 16:22 ITV (Rec: 06/15/20 16:22 ITV [id number]) Discharge Planning Assessment Advance Directives? Yes Advance Directives on File No History Provided By Medical Record Prior Living Arrangements House Household Members spouse Patient/Family Preference Penitentiary Facility Comment Needs SNF in this region before return to [facility] Discharge Plan Penitentiary Facility Transportation Arrangement w/c vs spouse Referrals Initiated Penitentiary Additional Comment Contacted [facility] and [facility] If patient plan is SNF: Has PASSR been No completed? Review Status In Process Pre-Anesthesia Assessment Start: 06/11/20 15:22 Freq: Status: Active Protocol: Document 06/11/20 15:22 CAB (Rec: 06/11/20 15:33 CAB [id number]) Pre-Anesthesia Assessment PAC Comment Pt declined full PAC phone assessment, states no changes, reviewed/updated medications, s/p surgery here 10/14/19 Patient Information Reviewed Via Chart Review,Phone Assessment Assessment Completed With Patient Comment COVID screen @ 06/11/20 pending-no other recent labs identified Primary Care Provider Benito Seen Specialist in Last 12 Months Yes Specialist Seen Orthopedist Primary Language Kyrgyz Preferred Language Kyrgyz Tire Fabric Inspector Required No Height 148.59 cm Weight 92.986 kg Body Mass Index (BMI) 42.1 Hearing Ability Normal Visual Assist Glasses Dentition Type Dental Implants Barriers to Learning None Other Aids No Hx Anesthesia Reactions Yes: PONV Hx Family Anesthesia Reaction No Hx Malignant Hyperthermia No Hx Blood Transfusions No Hx Blood Transfusion Reaction No Anesthesia Review Requested No alcohol intake never Smoking Status Never smoker Substance Use Type does not use Pain Present Pain Reported Musculoskeletal Symptoms Abnormal Gait,Difficulty Walking,Joint Pain,Numbness, Tingling History of Falling (Recent or History of Yes ) Patient is completely paralyzed or No completely immobile Prosthesis or Orthotic Device Cane,Front Wheel Walker, Wheelchair Mental Status Oriented to own ability Does patient have ARENAS/SOB No Hx Sleep Apnea No CPAP/BIPAP use not prescribed Currently Taking a Beta Dmitriy No Can You Climb a Flight of Stairs Without Yes SOB Hx Chest Pain No Hx SOB No Hx Syncope or Dizziness No Anti-Coagulant Therapy No Has a It Programmer No Cardiac Testing No Hx Pacemaker/ICD No Pacemaker Rep Required? No Cardiac Clearance Received Not Applicable Diet Type At Home Regular dysphagia No Hx Urinary Self Catheterization No Diabetes Yes HgbA1C 5.5 Date 10/19/19 Patient No Lactating No Hx Drug Resistant Organism No Presence of External or Internal Medical Yes: Bilat eye lens, lumbar/ Devices cervical, right knee, left knee Have you had any close contact with Unknown someone diagnosed with COVID-19? Marital Status Lives With spouse Feels Safe in Current Environment Yes Been Physically Hurt or Threatened By a No Person in Current Environment Do you have thoughts of harming yourself None or others? Are you currently considering suicide? No Do you have a plan to hurt yourself or No Plan others? Do You Have Any Spiritual Beliefs That No May Affect Your HC Choices? Do You Have Any Cultural Practices That No May Affect Your HC Choices? Who Can We Speak to About Patient's Care Family, friends Identifying Code for Release of Patient Declines to issue Information Health Care Proxy/Next of Kin Emil (son) Health Care Proxy Emergency Contact Name Emil (son) Emergency Contact Advance Directives? Yes Advance Directives on File No Power of Rack Carrier Yes Power of Rack Carrier Name Emil Greenfield (son) Power of Rack Carrier PAC Instructions Diabetes instructions,Durable medical equipment,Medications to take/avoid,Nasal antibiotic ,Pre-surgical wash
[2020-06-15] MEDS: ROPINIROLE 1 MG TABLET PO (16:23)
--- NOTE | 2020-06-15 17:53 | RT ---
Patient offered a Budesonide treatment after discussion with Dr. Rios and order change to Albuterol neb. Patient refused stating the higher dose of Albuterol made her feel like she could breath much better and she did not need to take the Budesonide at this time.
[2020-06-15] MEDS: NALOXONE 0.4 MG/ML VIAL 0.2 MG IV (18:47)
[2020-06-15] MEDS: ROSUVASTATIN 10 MG TABLET PO (20:09)
[2020-06-15] MEDS: ROPINIROLE 1 MG TABLET 3 MG PO (20:10)
[2020-06-15] MEDS: LATANOPROST 0.005% OPHTH 2.5 ML 1 DROPS EYE-BOTH (20:10)
[2020-06-15] MEDS: BRIMONIDINE 0.2% OPHTH 5 ML 1 DROPS EYE-BOTH (20:10)
[2020-06-15] MEDS: TIMOLOL 0.5% OPHTH 1 DROPS EYE-BOTH (20:10)
[2020-06-15] MEDS: CITALOPRAM 10 MG TABLET 20 MG PO (20:12)
--- NOTE | 2020-06-15 22:44 | PC.NURSE ---
Evening Shift Note Patients second unit of PRBCs started at 1730, VSS at this time BP 116/48 MAP 71, within patients baseline, patient A&O, blood double checked with RN Sanjuanita Chow and this RN. Patient VSS rechecked 15min past initation of PRBCs by ITA Lord, CHIP BIN CONVEYOR TENDER concerned d/t slight drop in patients blood pressure BP 93/46 MAP 62, all other VSS. BP still within patients baseline, this RN checked on patient and recheck on BP with manual cuff and within patient baseline, patient BP also compensated with positional change and also within baseline. At this point RN noted that patient appeared drowsy and was having a difficult time staying awake. This RN had given PO Dilaudid 2mg to patient at 1607. This was the patients 3rd dose in the last 9hrs. An [employer]STR[employer] RULES FOOTBALLER Whitley was called to bedside to assess patient with this RN. Repeat manual BP 88/38 MAP 55. Due to patient continued decrease in LOC and gradual dropping BPs it was decided to give patient a one time dose of Narcan 0.2mg at 1830, PRBC infusion was paused to facilitate administration. After a few minutes patient with increase LOC, BP 139/46. PRBC restarted. Patient vitals monitored frequently until stable, continuous pulse ox on patient. Dr Rios called and updated, VTORB to decrease dose of Dilaudid 2mg Q3H to Dilaudid 1mg Q3H. Orders implemented. Patient educated on narcotic usage and tolerance. Will continue to monitor and update night clerk nurse.
[2020-06-16] VITALS (10 sets, daily range): BP systolic 88–124; BP diastolic 41–71; PULSE 50–80; RESP 16–19; TEMP 36.6–36.8; O2SAT 2–100
[2020-06-16] MEDS: IBUPROFEN 400 MG TABLET PO ×6 (00:37→20:20)
[2020-06-16] MEDS: PANTOPRAZOLE 20 MG TABLET PO (05:30)
[2020-06-16] MEDS: ALBUTEROL 2.5 MG/3 ML NEB (ADULT) INH (08:13)
[2020-06-16] MEDS: DOCUSATE 100 MG CAPSULE PO ×2 (08:43→20:20)
[2020-06-16] MEDS: ACETAMINOPHEN 325 MG TABLET 650 MG PO ×3 (08:43→20:19)
[2020-06-16] MEDS: glipiZIDE 5 MG TABLET PO ×2 (08:43→20:20)
[2020-06-16] MEDS: ROSUVASTATIN 10 MG TABLET PO (08:44)
[2020-06-16] MEDS: ASPIRIN EC 81 MG TABLET PO ×2 (08:44→20:19)
[2020-06-16] MEDS: hydroCHLOROthiazide 25 MG TABLET PO (08:44)
[2020-06-16] MEDS: BRIMONIDINE 0.2% OPHTH 5 ML 1 DROPS EYE-BOTH ×2 (08:46→20:18)
[2020-06-16] MEDS: TIMOLOL 0.5% OPHTH 1 DROPS EYE-BOTH ×2 (08:47→20:17)
[2020-06-16] MEDS: VIT C/E/ZN/COPPR/LUTEIN/ZEAXAN CAPSULE 1 CAP PO ×2 (08:53→20:59)
--- NOTE | 2020-06-16 08:54 | PM.PN.1 ---
Subjective Subjective Date Patient Seen: 06/16/20 Time Patient Seen: 08:55 Interval history: Patient is POD#2 s/p removal of total joint prosthesis of knee w/ insertion of antibiotic beads and femoral component and articular surface, remove interlocking intramedullary yuli, left femur with Dr. Rios. Required 2 units of PRBC yesterday due to H/H 6.7/19.8 which improved to 7.1/21.0. Poor pain control yesterday which led to patient requiring Narcan overnight. She has not mobilized with PT due to pain control and hypotension yesterday. Faustin catheter in place. Exam Vital Signs (past 8 hours): - 06/16/20 02:51 06/16/20 08:15 Temperature 98.2 F Pulse Rate 65 80 Respiratory Rate 18 16 Blood Pressure 124/71 Pulse Oximetry 2 L 95 Oxygen Delivery Method Room Air Oxygen Flow Rate 1 Narrative Exam Narrative: Pleasant 75 year old female resting in bed eating breakfast. No acute distress. Alert and oriented. KAYDEN dressing in place over left knee is intact and functional. No drainage present. Patient able to flex/extend the hip and ankle. Palpable pedal pulse. Sensation intact. Objective Labs Result Diagrams: 06/15/20 08:25 06/15/20 10:45 Labs: Laboratory Results - last 24 hr 06/15/20 06/15/20 10:45 10:45 Creatinine 1.01 Estimated GFR 53.4 L Blood Type A Negative Antibody Screen Negative Crossmatch See Detail Assessment & Plan Assessment & Plan narrative: Pain currently controlled on Ibuprofen and Tylenol. She is apprehensive about narcotics as she has required Narcan during her last 2 hospitalizations. Oxycodone reduced to 5mg and will try to reserve this for severe pain. Repeat H/H ordered today. Will follow results. Patient denies symptoms and BP is improved. Will hold antihypertensives today. Encouraged patient to begin mobilizing with PT as she has not yet mobilized from the bed. Light toe touch weight bearing on the left initially. Will removed faustin once patient evaluated by PT. No growth on preliminary cultures. Patient currently on Vancomycin with PICC line in place.
--- NOTE | 2020-06-16 10:09 | CM.DPC ---
DCP Cont: Spoke to patient this morning about discharge planning. Her nurse, Ariana, had indicated that she had everything set up for outpatient infusion in her area. Patient resides in [facility], which is near [facility]. Spoke to patient, and she indicated that she is not familiar with any infusion clinics in the area, and her orthopedic office was working on visiting nurses. Discussed penitentiary with patient in this area, but she wants to be home close to her . She mentioned that there is a facility named [facility] that is near her. Found a facility rehab named [facility]. Their phone number is: [phone]. Left a message with Angela in admissions, since there was no one there over the weekend. Also, [facility] gave their fax number of: [phone]. Will fax over clinical information. It is unclear if there are any current beds available. Other option is to contact [facility] or [facility] to see if they service that area. She has [employer] as her secondary insurance, since Medicare does not cover home infusions. P: DCP to continue to follow. Will fax over information to [facility], and will attempt contacting either [facility] or [facility] to see if they service the area. Meaghan Salazar RN/[employer] Efficient Aircraft Designer
[2020-06-16 10:30] LABS: Hematocrit 25.8 % (36-46); Hemoglobin 8.8 g/dL (12.0-16.0)
--- NOTE | 2020-06-16 11:22 | CM.DPC ---
Addendum entered by Meaghan Salazar R.N. 06/16/20 13:03: Sienna called back from [facility] She stated that the closest [facility] is based out of [place], and that serves [facility]. Received a call from [facility] in [place], and they stated that they would review, for Sienna forwarded fax. The phone number for [facility] in [place] is: [phone]. Their fax number is: [phone]. They have already received referral. Addendum entered by Meaghan Salazar R.N. 06/16/20 12:43: Spoke to patient and updated her on what this case finishing machine adjuster has done so far. She expressed her appreciation. She is going to be working with P.T. Addendum entered by Meaghan Salazar R.N. 06/16/20 12:14: Sienna, pharmacist at [facility] called back. Stated that she will review referral, but can't run insurance on week-ends. She also stated that she will look at other [facility] to see if there are any that are closer to patient, and call this case finishing machine adjuster back. Addendum entered by Meaghan Salazar R.N. 06/16/20 12:06: Missed a phone call from Sienna, pharmacist, at [facility]. She included a phone number of: [phone]. Left another message with answering service. Received a fax number for them at: [phone]. Went ahead and faxed referral to them, including face sheet, Operative note, H&P, and med list. Also, faxed [facility] same information at: [phone]. Original Note: DCP Cont: Verified with [facility] that they do not serve the area in which the patient resides. [facility] does not as well, reviewed with them also. Noted [facility] out of [place]. Their phone number is: [phone]. Verified that they serve area, but they do not have anyone in intake over the weekend, and departure clerk did not know their fax number. Called [facility]. Their number is: [phone]. This was the answering service, but she will have someone call back. P: DCP to continue to follow. Will fax referral [facility] to [facility]. Will await call back from [facility]. [facility] will need to be contacted Thursday. Meaghan Salazar RN/Gas Flow Regulator
[2020-06-16] MEDS: OXYCODONE IR 5 MG TABLET PO (12:01)
[2020-06-16] MEDS: VANCOMYCIN 1,250 MG in SODIUM CHLORIDE 0.9% 250 ML IV (12:26)
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
[2020-06-16] MEDS: ROPINIROLE 1 MG TABLET PO (16:49)
[2020-06-16] MEDS: CITALOPRAM 10 MG TABLET 20 MG PO (20:19)
[2020-06-16] MEDS: ROPINIROLE 1 MG TABLET 3 MG PO (20:20)
[2020-06-16] MEDS: LATANOPROST 0.005% OPHTH 2.5 ML 1 DROPS EYE-BOTH (20:21)
[2020-06-16] MEDS: polyethylene glycoL 3350 17 GM POWD.PACK PO (20:24)
[2020-06-16] MEDS: SODIUM CHLORIDE 0.9% FLUSH 10 ML IV (20:59)
--- NOTE | 2020-06-16 22:06 | PC.NURSE ---
Addendum entered by Emmanuelle Bowden R.N. 06/16/20 22:44: low urine output. 150cc out. poor PO intake, only had 300cc PO for shana shift. encouraged pt to drink more fluids. Original Note: no dizziness, no light headedness. pt refused to get up for dinner. 93%RA. CMS+. denied pain. dressing cdi. jose drain blinking green. LLE elevated. PP++. safety checks. call light in reach.
[2020-06-17] VITALS (8 sets, daily range): BP systolic 102–159; BP diastolic 46–73; PULSE 51–81; RESP 16–19; TEMP 36.2–37.1; O2SAT 92–100
[2020-06-17] MEDS: IBUPROFEN 400 MG TABLET PO ×7 (00:17→20:07)
[2020-06-17] MEDS: PANTOPRAZOLE 20 MG TABLET PO (05:41)
[2020-06-17] MEDS: ACETAMINOPHEN 325 MG TABLET 650 MG PO ×3 (08:42→20:01)
[2020-06-17] MEDS: LOSARTAN 50 MG TABLET 100 MG PO (08:42)
[2020-06-17] MEDS: DOCUSATE 100 MG CAPSULE PO ×2 (08:42→20:00)
[2020-06-17] MEDS: hydroCHLOROthiazide 25 MG TABLET PO (08:43)
[2020-06-17] MEDS: ASPIRIN EC 81 MG TABLET PO ×2 (08:43→20:00)
[2020-06-17] MEDS: TIMOLOL 0.5% OPHTH 1 DROPS EYE-BOTH ×2 (08:44→20:03)
[2020-06-17] MEDS: BRIMONIDINE 0.2% OPHTH 5 ML 1 DROPS EYE-BOTH ×2 (08:44→22:57)
[2020-06-17] MEDS: VIT C/E/ZN/COPPR/LUTEIN/ZEAXAN CAPSULE 1 CAP PO ×2 (08:45→20:07)
[2020-06-17] MEDS: SODIUM CHLORIDE 0.9% FLUSH 10 ML IV ×2 (08:46→20:03)
--- NOTE | 2020-06-17 09:35 | PT.IPTN ---
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) Infection and inflammatory reaction due to internal right knee prosthesis, initial encounter (06/14/20) Presence of left artificial knee joint (06/14/20) Surgery Performed Operation Date: 06/14/20 09:45 Actual Procedures p Removal of total joint prosthesis of knee w/ insertion of anitbiotic beads and femoral component and articular surface, remove interlocking intramedullary yuli , femur(Left) - Bill Rios MD Physical Therapy Treatment Note M2 PT-IP Current Condition Start: 06/15/20 08:34 Freq: NEEDED Status: Active Protocol: Document 06/16/20 13:07 [facility] (Rec: 06/16/20 13:41 [facility] [id number]) Physical Therapy Current Condition Current Condition Evaluation Date 06/16/20 Treatment Diagnosis Removal of total joint prosthesis of left knee with antibiotics Onset Date 06/14/20 Precautions Other Precautions TTWB LEFT LE Weight Bearing Status Allowed Weight Bearing Amount (enter % non WB- TTWB only or #) (%) M3 PT-IP Subjective Start: 06/15/20 08:34 Freq: NEEDED Status: Active Protocol: Document 06/17/20 09:10 [facility] (Rec: 06/17/20 12:36 [facility] [id number]) Subjective Physical Therapy Visit Type Type Treatment Note Visit Start Time 09:10 Visit Stop Time 09:35 Total Visit Minutes 25 Physical Therapy Visit Comments Patient Comments Pt reports no pain at rest, willing to work with therapy. Therapy Pain Assessment Pain When Pain Assessed During Mobility Pain Present Pain Present Denied Pain M4 PT-IP Mobility and Gait Start: 06/15/20 08:34 Freq: NEEDED Status: Active Protocol: Document 06/17/20 09:10 [facility] (Rec: 06/17/20 12:36 [facility] [id number]) PT-Bed Mobility Assessment Rolling Type of Rolling Roll to Right Level of Assist Standby Assistance Supine to Sit Supine to Sit Maximum Assistance,1 Person Assistance,Bedrails Scooting Scooting to Edge of Bed Minimal Assistance PT-Transfer Assessment Sit to and From Stand Sit to and from Stand Minimal Assistance,1 Person Assistance,Use of Upper Extremities Equipment Transfer Assistive Device Gait Belt,Front Wheeled Walker Orthotic/Prosthetic Devices or Brace: No Transfers Transfer Destination Chair Transfer Technique Stand Step Pivot Transfer Ability Level of Assist Minimal Assistance,1 Person Assistance,Use of Upper Extremities Comments Mobility Comments Pt required increased Max A supine>sitting with HOB flat with support to pull from therapist hand and at upper back to transition trunk to sitting while using bed rail and pushing from bed for self performance. Pt required decreased Min A to scoot forward to EOB until RLE supported on floor. Sit to stand Min A with use of BUE to push from bed and FWW support , RLE lateral scoot bed to Chair Min A, cued upright posture, body postioning backing up to chair and reaching back with slow descent Min A with cuing for maintaining LLE NWB on floor to decrease risk of WB during mobility. Pt was able to scoot back into chair self using RLE and BUE chair arms SBA ( place a cushion under RLE and stabilized it while pt completed herself. Instructed LE exercises reclined in chair to improve strength and stability for standing, see details. Pt had call light and all needs in reach before left. Pt reported doesn't use FWW at home, positions motorized w/c facing her and she stands using BUE on w/c front then squat pivots 118 deg into w/c. Will assess this transfer during pm tx, otherwise might need FWW orders for home pre DC. Gait Assessment Comments Gait Comments Standing RLE/foot Lateral scoot bed to chair transfer only using FWW during tx. Stair Climbing Assessment Comments Stair Climbing Comments no stair at home to assess. PT-Balance Assessment Sitting Balance and Reactions Static Sitting Balance Ability Good Dynamic Sitting Balance Ability Good Standing Balance and Reactions Static Standing Balance Ability Fair Dynamic Standing Balance Ability Poor Device Used FWW M5 PT-IP Objective Assessments Start: 06/15/20 08:34 Freq: NEEDED Status: Active Protocol: Document 06/16/20 13:07 [facility] (Rec: 06/16/20 13:41 [facility] [id number]) Orientation Orientation/Cognition Level of Alertness Alert Gross Range of Motion Upper Extremity ROM Assessment Within Functional Limits Lower Extremity ROM Assessment Right Impaired Strength Upper Extremity Strength Assessment Within Functional Limits Lower Extremity Strength Assessment Right Impaired M6 PT-IP Treatment Start: 06/15/20 08:34 Freq: NEEDED Status: Active Protocol: Document 06/17/20 09:10 [facility] (Rec: 06/17/20 12:36 [facility] [id number]) Physical Therapy Treatment Exercises Exercises Ankle Pumps,Gluteal Sets,Quad Sets,Straight Leg Raises Education Education Provided Precautions,Weight Bearing Status,Safety M7 PT-IP Assessment and Plan Start: 06/15/20 08:34 Freq: NEEDED Status: Active Protocol: Document 06/17/20 09:10 [facility] (Rec: 06/17/20 12:36 [facility] [id number]) PT Summary Assessment and Plan Potential Rehabilitation Potential Good Status of Condition at Evaluation Stable Summary Impairments ROM,Strength,Balance,Transfers ,Activity Tolerance Assessment Summary Marti is a 75 yo female who was seen 06/14/20 for removal of total joint prothesis due to sepsis. She also has a healed distal femor fracture on the left. The plan is for a 2 stage revision. A temporary knee with antibiotic cement was placed and she will require 6-8 weeks of antibiotics. This will be followed by a revision knee arthroplasty once there are no longer signs of infection. Marti is TTWB on the left LE. She is very aware of these precautions and challenged TTWB with transfer today. She was able to roll in bed to the right with SBA using bed rail, she required increased support with HOB flat Max A x1 for sitting up in bed but was able to move the left LE in bed on her own. She was min A for scooting up to the edge of the bed, she has short legs and needed support to scoot to move all the way forward to the edge of the bed. She was able to do a pivot transfer to the bed side chair with min A using FWW. Marti had good pain control this morning with no pain reproted. Marti plans on returning home once stable to [place] with her , would be beneficial for caregiver training if progresses to return home . She will have home health services. At this time recommending SNF, pt would benefit from skilled services to progress in strength toward functional ind epenedence. Will continue to assess progress and update assist. Goals Bed Mobility Goal Contact Guard Assistance Transfer Goal Contact Guard Assistance Days to Meet Goals 5 Frequency of Treatment Frequency Of Treatment Twice a Day Treatment Plan Physical Therapy Treatment Plan Bed Mobility Training,Transfer Training,Therapeutic Exercise Other Recommendations and Next Treatment Focus on transfer training including to w/c to assimulate home performance PLOF, R Focus LE ther ex, time treatment for best pain control Recommendations To Nursing Amount of Assist Needed 1 Person Assist Discharge Recommendations PT Discharge Recommendations Home with Assistance,Home Health,SNF Rehab Other Discharge Recommendations Home with Assist/ HHPT vs. SNF Rehab Transportation Needs at Discharge Private Vehicle,Wheelchair/ Cabulance
--- NOTE | 2020-06-17 10:03 | PM.PN.1 ---
Subjective Subjective Date Patient Seen: 06/17/20 Time Patient Seen: 10:03 Interval history: She has been minimally weight-bearing on the left leg. Her pain is much better controlled. She was able to urinate without difficulty once her Nuno catheter was removed. Exam Vital Signs (past 8 hours): - 06/17/20 03:32 06/17/20 07:47 06/17/20 08:22 Temperature 97.2 F L 97.3 F L Pulse Rate 60 79 65 Respiratory Rate 18 16 18 Blood Pressure 104/46 L 159/73 H Pulse Oximetry 93 95 92 Oxygen Delivery Method Room Air Oxygen Flow Rate 0 Narrative Exam Narrative: Her dressing is dry, she is able to do an active straight leg raise or calf to soft her Jaswant wrap still intact she has mild pain with gentle range of motion in the knee Objective Labs Result Diagrams: 06/16/20 10:04 06/15/20 10:45 Labs: Laboratory Results - last 24 hr 06/16/20 10:04 Hgb 8.8 L Hct 25.8 L Intraoperative cultures are still no growth and pending, she does have 2 organisms growing from her urine. Assessment & Plan Assessment & Plan narrative: Improving status post left knee removal of infected total knee arthroplasty in a femoral yuli. At plan is to continue IV antibiotics I anticipate discharge to home tomorrow. She is still having some difficulty mobilizing with physical therapy and she lives 4 hours away so would like to make sure that she is adequately stable prior to discharge. She has postoperative blood loss anemia but she is only mildly symptomatic with some tiredness at this point. Her hematocrit responded appropriately to the transfusion yesterday.
[2020-06-17] MEDS: ALBUTEROL 2.5 MG/3 ML NEB (ADULT) INH (11:15)
--- NOTE | 2020-06-17 11:57 | CM.DPC ---
Addendum entered by Meaghan Salazar R.N. 06/17/20 12:27: Fax to [facility] did not go through, will have to follow up tomorrow. Original Note: DCP Cont: Patient could most likely be discharged home tomorrow. Have sent referrals over to [facility], included phone number and fax, they are based out of [place], and serve [facility]. Have left a message with [facility], their phone number is: [phone]. Spoke to Tess, and she gave fax number of: [phone]. Other option is [facility] rehab, and have a call out to Angela in admissions. Checked in with local [facility], spoke to [place], and she stated that [facility] does not serve her area. Have not been able to locate any other local home health agencies as of now. P:DCP to continue to follow. Will fax [facility] over referral information. Patient is most likely being discharged tomorrow, will need script, and will need to follow up with infusion agencies, as well as [facility] rehab. Meaghan Salazar RN/Apparatus Operator
[2020-06-17] MEDS: VANCOMYCIN 1,250 MG in SODIUM CHLORIDE 0.9% 250 ML IV (12:23)
[2020-06-17 13:47] LABS: Vancomycin Trough 17.4 ug/mL (10-20)
--- NOTE | 2020-06-17 13:57 | PT.IPTN ---
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) Infection and inflammatory reaction due to internal right knee prosthesis, initial encounter (06/14/20) Presence of left artificial knee joint (06/14/20) Surgery Performed Operation Date: 06/14/20 09:45 Actual Procedures p Removal of total joint prosthesis of knee w/ insertion of anitbiotic beads and femoral component and articular surface, remove interlocking intramedullary yuli , femur(Left) - Bill Rios MD Physical Therapy Treatment Note M2 PT-IP Current Condition Start: 06/15/20 08:34 Freq: NEEDED Status: Active Protocol: Document 06/16/20 13:07 AMH (Rec: 06/16/20 13:41 AMH [id number]) Physical Therapy Current Condition Current Condition Evaluation Date 06/16/20 Treatment Diagnosis Removal of total joint prosthesis of left knee with antibiotics Onset Date 06/14/20 Precautions Other Precautions TTWB LEFT LE Weight Bearing Status Allowed Weight Bearing Amount (enter % non WB- TTWB only or #) (%) M3 PT-IP Subjective Start: 06/15/20 08:34 Freq: NEEDED Status: Active Protocol: Document 06/17/20 13:22 SP (Rec: 06/17/20 14:37 SP [id number]) Subjective Physical Therapy Visit Type Type Treatment Note Visit Start Time 13:22 Visit Stop Time 13:57 Total Visit Minutes 35 Number of MANAGER DIVISION Visits 2 Physical Therapy Visit Comments Patient Comments Pt willing to work with therapy. Patient Goals Pt's goals are to DC home with her back [facility] and have home health care Therapy Pain Assessment Pain When Pain Assessed During Mobility Pain Present Pain Present Pain Reported Location Left Knee Intensity 3 Scale Used Numeric (0 - 10) Description Aching,Tightness Pain Management Techniques Re-positioning,Timing of Activity with Medications M4 PT-IP Mobility and Gait Start: 06/15/20 08:34 Freq: NEEDED Status: Active Protocol: Document 06/17/20 13:22 SP (Rec: 06/17/20 14:37 SP [id number]) PT-Bed Mobility Assessment Rolling Type of Rolling Roll to Right Level of Assist Standby Assistance Supine to Sit Supine to Sit Moderate Assistance,1 Person Assistance,Bedrails Sit to Supine Sit to Supine Standby Assistance,Bedrails Scooting Scooting to Edge of Bed Contact Guard Assistance PT-Transfer Assessment Sit to and From Stand Sit to and from Stand Minimal Assistance,1 Person Assistance,Use of Upper Extremities Equipment Transfer Assistive Device Gait Belt Orthotic/Prosthetic Devices or Brace: No Transfers Transfer Destination Wheelchair,Bedside Commode Transfer Technique Stand Pivot Transfer Ability Level of Assist Minimal Assistance,1 Person Assistance,Use of Upper Extremities Comments Mobility Comments Pt required SBA roll to R using bed rails (uses opened drawer at home),Mod A support at upper back to assist transition trunk to sitting using bed rail, able to reposition LLE herself, scoot to EOB herself SBA. Stand pivot transfer bed 90 deg to R into w/c Min A and BUE reaching across for w/c arm and pushing off bed, LLE supported on therapist foot for self feedback with occasional cuing for maintaining NWB- TTWB precautions. Instructed patient BLE LAQ intially RLE assist LLE as reps progressed able to perform itself, LLE 80 - 10 deg A-AAROM. Squat pivot transfer w/c > BSC Min A, Stand pivot transfer BSC to bed both to R Min A with good demonstration of NWB LLE. Sit> supine CGA to LLE and use of bed rails. Instructed to center self in bed using bed rails then LLE ther exn supine : quad & glut set, heel slide, ankle pumps, supine hip abd AROM with no assist approx 3- 110 deg. Pt was reclined in bed with call light and all needs in reach before left. Pt 's will be here tomorrow at 10 am for caregiver training including bed mob, stand pivot transfer using w/c and toileting assist for safe DC home. Gait Assessment Comments Gait Comments Standing pivot transfer bed> w /c > BSC> bed on RLE/foot Lateral scoot transfer only during tx Min A using w/c or BSC arms for self support to assimulate as performed PLOF, maintaining NWB LLE. Stair Climbing Assessment Comments Stair Climbing Comments no stair at home to assess. PT-Balance Assessment Sitting Balance and Reactions Static Sitting Balance Ability Good Dynamic Sitting Balance Ability Good Standing Balance and Reactions Static Standing Balance Ability Good Dynamic Standing Balance Ability Fair Device Used w/c arm rest support during transfers M5 PT-IP Objective Assessments Start: 06/15/20 08:34 Freq: NEEDED Status: Active Protocol: Document 06/16/20 13:07 AMH (Rec: 06/16/20 13:41 AMH [id number]) Orientation Orientation/Cognition Level of Alertness Alert Gross Range of Motion Upper Extremity ROM Assessment Within Functional Limits Lower Extremity ROM Assessment Right Impaired Strength Upper Extremity Strength Assessment Within Functional Limits Lower Extremity Strength Assessment Right Impaired M6 PT-IP Treatment Start: 06/15/20 08:34 Freq: NEEDED Status: Active Protocol: Document 06/17/20 13:22 SP (Rec: 06/17/20 14:37 SP [id number]) Physical Therapy Treatment Exercises Exercises Ankle Pumps,Gluteal Sets,Quad Sets,Heel Slides,Supine Hip Abduction,Seated Knee Flexion/ Extension Education Education Provided Precautions,Weight Bearing Status,Safety M7 PT-IP Assessment and Plan Start: 06/15/20 08:34 Freq: NEEDED Status: Active Protocol: Document 06/17/20 13:22 SP (Rec: 06/17/20 14:37 SP [id number]) PT Summary Assessment and Plan Potential Rehabilitation Potential Good Status of Condition at Evaluation Stable Summary Impairments ROM,Strength,Balance,Transfers ,Activity Tolerance Assessment Summary Marti is a 75 yo female who was seen 06/14/20 for removal of total joint prothesis due to sepsis. She also has a healed distal femor fracture on the left. The plan is for a 2 stage revision. A temporary knee with antibiotic cement was placed and she will require 6-8 weeks of antibiotics. This will be followed by a revision knee arthroplasty once there are no longer signs of infection. Marti is TTWB on the left LE. She is very aware of these precautions and maintaining TTWB with transfers today, therapist provided foot under hers to provide feedback for safety. She was able to roll in bed to the right with SBA using bed rail, she required Mod A x1 for sitting up in bed but was able to move the left LE in bed on her own. She was CGA for scooting to the edge of the bed. She was able to do stand pivot transfer bed>w/c>BSC>bed Min A. Marti reported no pain. Marti plans on returning home once stable to [place] with her , caregiver training set up for 10 am 06/18. Therapy recommending home with assist of , home health services. Goals Bed Mobility Goal Contact Guard Assistance Transfer Goal Contact Guard Assistance Days to Meet Goals 5 Frequency of Treatment Frequency Of Treatment Twice a Day Treatment Plan Physical Therapy Treatment Plan Bed Mobility Training,Transfer Training,Therapeutic Exercise Other Recommendations and Next Treatment Focus on transfer training, R Focus LE ther ex, time treatment for best pain control Recommendations To Nursing Amount of Assist Needed 1 Person Assist Discharge Recommendations PT Discharge Recommendations Home with Assistance,Home Health Other Discharge Recommendations Home with Assist/ HHPT Transportation Needs at Discharge Private Vehicle,Wheelchair/ Cabulance
[2020-06-17] MEDS: OXYCODONE IR 5 MG TABLET PO (15:03)
[2020-06-17] MEDS: ROPINIROLE 1 MG TABLET PO (16:44)
[2020-06-17] MEDS: ROPINIROLE 1 MG TABLET 3 MG PO (19:59)
[2020-06-17] MEDS: CITALOPRAM 20 MG TABLET PO (20:01)
[2020-06-17] MEDS: LATANOPROST 0.005% OPHTH 2.5 ML 1 DROPS EYE-BOTH (20:03)
[2020-06-17] MEDS: ROSUVASTATIN 10 MG TABLET PO (20:07)
[2020-06-17] MEDS: glipiZIDE 5 MG TABLET PO (20:08)
[2020-06-18] MEDS: IBUPROFEN 400 MG TABLET PO ×3 (01:12→09:16)
[2020-06-18] MEDS: OXYCODONE IR 5 MG TABLET PO ×2 (01:44→12:28)
[2020-06-18] MEDS: PANTOPRAZOLE 20 MG TABLET PO (05:37)
[2020-06-18 06:09] VITALS: BP 151/70; PULSE 80; RESP 18; TEMP 37.1; O2SAT 92
--- NOTE | 2020-06-18 07:31 | P.DS_ITS ---
History of Present Illness History of Present Illness Date Patient Seen: 06/18/20 Time Patient Seen: 07:34 Date of Onset of Symptoms: 06/18/20 Chief complaint: [id number] LEFT FEMUR/KNEE Narrative: Dipika is a 75-year-old woman who was admitted on 06/14/2020 with an infected left total knee arthroplasty. Her initial knee replacement was done in September of 2019. She fell shortly after surgery sustained a distal femoral fracture. That was repaired with an intramedullary nail. She started to have some redness and swelling around February of 2020. In the part of May for repeat evaluation and noted to have significant swelling and erythema. X-ray showed loosening of the total knee arthroplasty. Laboratory studies were consistent with sepsis. She presents for removal of implants, irrigation and debridement and placement of a temporary prosthesis with antibiotic cement and antibiotic beads. Discharge Providers Provider Date of admission: 06/14/20 07:17 Discharge Date: 06/18/20 Consults: 06/14/20 16:10 Consult to Discharge Planning Routine Comment: Consult to Physical Therapy Evaluate & Treat Comment: Physician Instructions: postop TKA protocol Consult to Respiratory Therapy Evaluate & Treat Comment: Physician Instructions: Evaluate and treat 06/15/20 06:37 Consult to Physical Therapy Evaluate & Treat Comment: NWB and gentle ROM Left knee Physician Instructions: Evaluate and Treat Discharge provider: Bill Rios MD Summary Hospital Course Discharge Diagnosis: Discharge diagnosis is septic left total knee arthroplasty. Hospital Course: The patient was taken to surgery on the day of admission. All implants including the total knee in femoral nail removed. A temporary prosthesis with antibiotic cement and antibiotic beads were placed. She had moderate pain the 1st day after surgery. She had 1 episode where she was slightly over medicated and Narcan was used. By postop day 2 after surgery her pain has nearly resolved. She has primarily been using anti-inflammatory medications and some oxycodone for pain. Intraoperative cultures showed no growth. She had a history of vancomycin allergy. However vancomycin was tested in the operating room and she had no reaction. She was continued on vancomycin postoperatively. Her hemoglobin fell to 7.1 after surgery. She was transfused 2 units. Her hemoglobin was then measured at 8.8 the next day. She has not been symptomatic from her hematocrit. Plan is to discharge to home on 06/18/2020 with 6 weeks of IV antibiotics. She will be on vancomycin. She will be set up with infusions in [place] where she lives. I will see her back in 2 weeks for repeat evaluation. Status at Discharge Cognitive/behavioral status at discharge: oriented Functional status at discharge: uses cane/walker Overall status at discharge: patient is progressing back to baseline Time Spent with Patient Time spent: Less than 30 minutes Exam Vital Signs (past 8 hours): - 06/18/20 06:09 Temperature 98.8 F Pulse Rate 80 Respiratory Rate 18 Blood Pressure 151/70 H Pulse Oximetry 92 Oxygen Delivery Method Room Air Oxygen Flow Rate 0 Narrative Exam Narrative: The jose dressing is clean and dry. There is expected swelling. Legs neurovascularly intact. No erythema. Objective Labs Result Diagrams: 06/16/20 10:04 06/15/20 10:45 Labs: Laboratory Results - last 24 hr 06/17/20 12:05 Vancomycin Trough 17.4 Discharge Plan Discharge Plan Patient Disposition: Home Discharge orders & Medications Prescriptions: Continued hydrochlorothiazide 25 mg Tablet 25 mg PO DAILY RF: 0 glipizide 5 mg Tablet 5 mg PO BID RF: 0 rosuvastatin 10 mg Tablet 10 mg PO DAILY RF: 0 timolol 0.5 % Drops 1 drp EYE-BOTH BID RF: 0 ropinirole 1 mg Tablet 3 mg PO 2100 RF: 0 PreserVision AREDS-2 [id number] sd-ttau-[id number]-mg Capsule 1 tab PO BID RF: 0 latanoprost 0.005 % drops 1 drp EYE-BOTH BEDTIME RF: 0 brimonidine 0.2 % drops 1 drp EYE-BOTH BID RF: 0 epinephrine 0.3 mg/0.3 mL auto-injector 0.3 mg IM PRN PRN (Reason: Allergic Reaction) RF: 0 losartan 100 mg tablet 100 mg PO DAILY RF: 0 albuterol sulfate 0.63 mg/3 mL Solution For Nebulization 0.63 mg INHALATION Q4-6H PRN (Reason: Wheezing) RF: 0 budesonide 0.25 mg/2 mL Suspension For Nebulization 0.25 mg INHALATION PRN PRN (Reason: Wheezing) RF: 0 ropinirole 1 mg Tablet 1 mg PO 1600 Qty: 40 RF: 0 citalopram 10 mg tablet 20 mg PO BEDTIME Qty: 0 RF: 0 omeprazole 20 mg capsule,delayed release(DR/EC) 20 mg PO DAILY RF: 0 Follow up/Referrals: Bill Rios MD [Physician] - 06/28/20 Diet/Activity/Treatments Diet: Diet as Tolerated Activity: Light toe-touch weight-bearing on left lower extremity. Daily [id number] exercises as tolerated. Cold/Heat Therapy: May ice the knee for 20 minutes at a time for comfort. Other treatments: Will need vancomycin IV x6 weeks. This will be set up with an infusion clinic in [place]. Skin/Wound/Dressing Care Report to your healthcare provider any signs of infection, such as:: chills, fever, night sweats, increased pain, unusual drainage and unusual redness Dressing: May change dressing at 7 days after surgery. May shower over wound once dressing changed.
[2020-06-18 07:48] VITALS: O2SAT 96
[2020-06-18 08:00] VITALS: BP 132/65; PULSE 66; RESP 16; TEMP 36.4; O2SAT 95
--- NOTE | 2020-06-18 08:34 | CM.DPC ---
Addendum entered by Susan Bright R.N. 06/18/20 12:29: MARIOLA called Dr. Medina office at [phone] they are working on getting orders placed for infusions through the infusion center at [facility]. MARIOLA called Maikol the senior energy market coordinator for the Infusion center [phone] ext; [phone] she stated she can get it scheduled once Dr. Lara places orders. CM department will follow up with Dr. Lara's staff to get orders placed and infusions set up with [facility] and will let patients RN know once we have an infusion appointment time set up so patient can D/C. Susan Bright RN Addendum entered by Susan Bright R.N. 06/18/20 10:41: MARIOLA Called [facility] to there infusion clinic and discussed patient coming in for infusions for once a day for the next 6 weeks. I was given patients PCP office number [phone] to discuss with MD since patient has to be referred from a provider within there hospital. Mariola spoke to patients PCP Dr. Lara's nurse who stated she will get Dr. Lara to order infusions at the hospital starting tomorrow for patient and Dr. Lara will monitor patients IV antibiotic treatments. Mariola faxed D/C summary medication summary, and progress notes to Dr Medina office at [phone]. ZEYAD/VICENTA spoke with the [facility] and had her put together a d/c packet for patient to take with her to MD office as well as the infusions clinic. Mariola spoke with patients nurse and updated her on D/C plan. Patient is having her first round of IV antibiotics today and will start with [facility] infusion center tomorrow. Mariola will call Dr. Medina office to get appointment time for IV infusion for tomorrow prior to patient D/C today. Susan Bright RN Original Note: DCP continued: EMR reviewed: ZEYAD/VICENTA met with patient to discuss D/C plan. Patient it open to home infusions or SNF. [facility] with patient. ZEYAD also called [facility] post-acute rehab [phone] and left a voice message with admissions there as well. Zeyad Will continue to follow up with possible SNF choices as well as home infusion companies to get D/c plan determined prior to D/C today. Susan Bright RN
[2020-06-18] MEDS: DOCUSATE 100 MG CAPSULE PO (09:15)
[2020-06-18] MEDS: LOSARTAN 50 MG TABLET 100 MG PO (09:15)
[2020-06-18] MEDS: glipiZIDE 5 MG TABLET PO (09:15)
[2020-06-18] MEDS: ASPIRIN EC 81 MG TABLET PO (09:16)
[2020-06-18] MEDS: ACETAMINOPHEN 325 MG TABLET 650 MG PO (09:16)
[2020-06-18] MEDS: BRIMONIDINE 0.2% OPHTH 5 ML 1 DROPS EYE-BOTH (09:16)
[2020-06-18] MEDS: SODIUM CHLORIDE 0.9% FLUSH 10 ML IV (09:17)
[2020-06-18] MEDS: TIMOLOL 0.5% OPHTH 1 DROPS EYE-BOTH (09:17)
[2020-06-18] MEDS: VIT C/E/ZN/COPPR/LUTEIN/ZEAXAN CAPSULE 1 CAP PO (09:18)
[2020-06-18] MEDS: polyethylene glycoL 3350 17 GM POWD.PACK PO (09:19)
--- NOTE | 2020-06-18 10:17 | PT.IPTN ---
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) Infection and inflammatory reaction due to internal right knee prosthesis, initial encounter (06/14/20) Presence of left artificial knee joint (06/14/20) Surgery Performed Operation Date: 06/14/20 09:45 Actual Procedures p Removal of total joint prosthesis of knee w/ insertion of anitbiotic beads and femoral component and articular surface, remove interlocking intramedullary yuli , femur(Left) - Bill Rios MD Physical Therapy Treatment Note M2 PT-IP Current Condition Start: 06/15/20 08:34 Freq: NEEDED Status: Active Protocol: Document 06/16/20 13:07 AMH (Rec: 06/16/20 13:41 AMH [id number]) Physical Therapy Current Condition Current Condition Evaluation Date 06/16/20 Treatment Diagnosis Removal of total joint prosthesis of left knee with antibiotics Onset Date 06/14/20 Precautions Other Precautions TTWB LEFT LE Weight Bearing Status Allowed Weight Bearing Amount (enter % non WB- TTWB only or #) (%) M3 PT-IP Subjective Start: 06/15/20 08:34 Freq: NEEDED Status: Active Protocol: Document 06/18/20 09:44 CLB (Rec: 06/18/20 12:38 CLB [id number]) Subjective Physical Therapy Visit Type Type Treatment Note Visit Start Time 09:44 Visit Stop Time 10:17 Total Visit Minutes 33 Notes present during tx for CG training. Number of SALES REPRESENTATIVE SALES MANAGER Visits 3 Physical Therapy Visit Comments Patient Comments Pt willing to work with therapy. Patient Goals Pt's goals are to DC home with her back [facility] and have home health care Therapy Pain Assessment Pain When Pain Assessed During Mobility Pain Present Pain Present Denied Pain M4 PT-IP Mobility and Gait Start: 06/15/20 08:34 Freq: NEEDED Status: Active Protocol: Document 06/18/20 09:44 CLB (Rec: 06/18/20 12:38 CLB [id number]) PT-Bed Mobility Assessment Rolling Type of Rolling Roll to Right Level of Assist Standby Assistance Supine to Sit Supine to Sit Moderate Assistance,1 Person Assistance,Bedrails Sit to Supine Sit to Supine Standby Assistance,Bedrails Scooting Scooting to Edge of Bed Standby Assistance PT-Transfer Assessment Sit to and From Stand Sit to and from Stand Contact Guard Assistance,1 Person Assistance,Use of Upper Extremities Equipment Transfer Assistive Device Gait Belt Orthotic/Prosthetic Devices or Brace: No Transfers Transfer Destination Bed,Wheelchair Transfer Technique Stand Pivot Transfer Ability Level of Assist Contact Guard Assistance,1 Person Assistance,Use of Upper Extremities Comments Mobility Comments Pt requires SBA for rolling to right then Min A to sitting position, pt able to scoot to EOB SBA. Pt transferred to right into WC CGA with use of UE's while following NWB on LLE. Pt then transferred to left getting back into bed CGA . Pt then returned to supine SBA while managing LLE onto bed herself and scooting to HOB SBA using RLE to bridge. Pt performed AP's, HS, and QS on RLE in supine. Left pt in bed with alarm and SCD's on, call light and all other needs within reach. Gait Assessment Comments Gait Comments transfer only. Stair Climbing Assessment Comments Stair Climbing Comments no stair at home to assess. M5 PT-IP Objective Assessments Start: 06/15/20 08:34 Freq: NEEDED Status: Active Protocol: Document 06/16/20 13:07 AMH (Rec: 06/16/20 13:41 AMH [id number]) Orientation Orientation/Cognition Level of Alertness Alert Gross Range of Motion Upper Extremity ROM Assessment Within Functional Limits Lower Extremity ROM Assessment Right Impaired Strength Upper Extremity Strength Assessment Within Functional Limits Lower Extremity Strength Assessment Right Impaired M6 PT-IP Treatment Start: 06/15/20 08:34 Freq: NEEDED Status: Active Protocol: Document 06/18/20 09:44 CLB (Rec: 06/18/20 12:38 CLB [id number]) Physical Therapy Treatment Exercises Exercises Ankle Pumps,Quad Sets,Heel Slides Education Education Provided Precautions,Weight Bearing Status,Safety M7 PT-IP Assessment and Plan Start: 06/15/20 08:34 Freq: NEEDED Status: Active Protocol: Document 06/18/20 09:44 CLB (Rec: 06/18/20 12:38 CLB [id number]) PT Summary Assessment and Plan Potential Rehabilitation Potential Good Status of Condition at Evaluation Stable Summary Impairments ROM,Strength,Balance,Transfers ,Activity Tolerance Assessment Summary Pt is SBA for all bed mobility and is able to transfer bed<> WC requiring SBA-CGA while NWB on LLE. Pt has good safety awareness as she has been transfering to prior to admission. Goals Bed Mobility Goal Contact Guard Assistance Transfer Goal Contact Guard Assistance Days to Meet Goals 5 Frequency of Treatment Frequency Of Treatment Twice a Day Treatment Plan Physical Therapy Treatment Plan Bed Mobility Training,Transfer Training,Therapeutic Exercise Recommendations To Nursing Amount of Assist Needed 1 Person Assist Discharge Recommendations PT Discharge Recommendations Home with Assistance,Home Health Other Discharge Recommendations Home with Assist/ HHPT Transportation Needs at Discharge Private Vehicle,Wheelchair/ Cabulance
[2020-06-18] MEDS: VANCOMYCIN 1,000 MG/200 ML PIGGYBACK 200 MG IV (10:59)
[2020-06-18 11:21] VITALS: BP 134/48; PULSE 53; RESP 18; TEMP 36.5; O2SAT 95
--- NOTE | 2020-06-18 13:28 | PC.NURSE ---
Day shift discharge note: Patient discharged home per MD orders, PICC line single lumen to LUE. Discussed importance of F/U with Dr. Rios in 2 weeks, mobility/activity, new medications including narcotic home use, and dressing care. Patient verbalized understanding of instructions. Home via private vehicle accompanied by .
--- NOTE | 2020-06-18 13:37 | CM.DPC ---
Addendum entered by JOSR Alvarez 06/18/20 16:10: Call back from Yenny at [facility] confirming she received order from PCP and pt scheduled for 1100 tomorrow for her once a day dose of IV-Abx and they will be calling her to update. BF Addendum entered by JOSR Alvarez 06/18/20 14:03: ADD: JULIO CESAR called Yenny, raised printer at [facility] ([phone]) and confirmed that she still has not received the order and JULIO CESAR confirmed that it is just an order in the computer that Yenny would have instant access too. Yenny states she will call Dr. Lara's office right now to check on the order and confirm they are aware it's an order for the computer not something that needs to be faxed and will call SW back with update. BF Original Note: DCP Discharge Home with Infusion JULIO CESAR spoke to pt who requested phone number for [facility] as pt was going to call to urgently request MD signature/orders for outpt infusion so that she and her could leave the hospital now for home in [place] due to the long drive. Per RN, pt spoke to staff at her PCP office and all pwk is waiting for MD to sign the moment he steps out of the room with the pt he is currently seeing and they will get that to the [facility]. RN explained that if this does not happen by 1500 then not guaranteed that pt will be set up for outpt infusion for her next dose tomorrow. Pt and state that they feel confident after their discussion with pt's PCP office that things will be completed in time and they are choosing to leave the hospital for home in [facility] and aware of the risks. Plan: Patient discharged home via spouse POV with plans of outpt infusion tomorrow at [facility] out[facility] infusion clinic for superintendent [employer] IV-Abx and follow up with [facility] in two weeks. JOSR Alvarez
--- NOTE | 2020-06-18 13:48 | PC.NURSE ---
Discharge home: See detailed CM notes re: discharge plan. Patient got her daily IV Vanco dose before leaving, and left before being 100% sure of having an appt time scheduled for tomorrow's dose in [place]. Patient expressed full confidence that her PCP would do everything necessary on her end to make sure patient can have her infusion tomorrow, and wanted to head for [place] before having official confirmation of an appointment time. Minerva RN reviewed paperwork with patient and and they stated no further questions at time of d/c. She already has f/u scheduled with Dr Rios. All personal belongings sent with patient at d/c. Wheeled out to private vehicle by nursing staff.
== END 2020-06-18 13:52 | disposition home or self-care (01) | DRG 467 ==
PROVIDERS: Orthopaedic Surgery; Physician Assistant Surgical; Admitting Provider Orthopaedic Surgery; Referring Provider Orthopaedic Surgery; Visit Provider Orthopaedic Surgery
PROC: 0SRD0EZ Replacement of Left Knee Joint with Articulating Spacer, Open Approach (ICD-10-PCS; principal; 2020-06-14 09:45)
DX: T84.54XA Infection and inflammatory reaction due to internal left knee prosthesis, initial encounter (principal); D62 Acute posthemorrhagic anemia; Z68.41 Body mass index [BMI] 40.0-44.9, adult; T84.033A Mechanical loosening of internal left knee prosthetic joint, initial encounter; Z01.812 Encounter for preprocedural laboratory examination; Z11.59 Encounter for screening for other viral diseases; E11.9 Type 2 diabetes mellitus without complications; E66.9 Obesity, unspecified; J45.909 Unspecified asthma, uncomplicated; I10 Essential (primary) hypertension
CPT/HCPCS: 36415; 36430; 36569; 73560; 76000; 80202; 82565; 82962; 85014; 85018; 86850; 86900; 86901; 87070; 87075; 87205; 87635; 94640; 97110; 97161; 97530; C1776; P9016; C9290; J0131; J0330; J1100; J1170; J1642; J2250; J2310; J2405; J2704; J3010; J7613